=== PATIENT | female | born 1985 | race Caucasian/White ===

== ENCOUNTER 2017-06-08 20:05 | Emergency (ER) | payer BC ==
[2017-06-08 20:27] VITALS: BP 130/82
--- NOTE | 2017-06-08 21:06 | EDM.PDOC ---
ED HPI GENERAL MEDICAL PROBLEM - General Chief Complaint: Gastrointestinal Problem Stated Complaint: 5 WKS PG/VOMITING & DIARRHEA Time Seen by Provider: 06/08/17 21:06 Source of Information: Reports: Patient History Limitations: Reports: No Limitations - History of Present Illness INITIAL COMMENTS - FREE TEXT/NARRATIVE: 31-year-old female presents the ED with acute onset of nausea vomiting and diarrhea. Illness started suddenly at noon today. Vomited greater than 6 times bilious emesis without blood. She isloose large-volume stool losses 5. Again no blood noted. Of note patient is 5-1/2 weeks gestation by dates. She is 5 para 2. Is having a lot of abdominal cramping pain. Patient by history has chronic loose stools due to gluten and lactose intolerance. She follows a very strict diet it's unlikely that she's contracted foodborne illness. None of her children are ill at this time nor is her . Feels febrile and chilled. Denies any bleeding per vagina. Denies any increased urinary frequency or dysuria. Onset: Today Onset Date: 06/08/17 Onset Time: 12:00 Duration: Hour(s): Location: Reports: Abdomen (Intractable nausea vomiting and loose watery diarrhea.) Quality: Reports: Ache, Other (Generalized ache.) Severity: Moderate (Abdominal cramping pain) Improves with: Reports: None Worsens with: Reports: Other (Has kept down a Sprite so far this afternoon.) Context: Denies: Activity, Exercise, Lifting, Sick Contact, Trauma, Other Associated Symptoms: Reports: Fever/Chills, Loss of Appetite, Malaise, Nausea/ Vomiting, Shortness of Breath, Weakness (Intractable see history present illness ), Other (Mild dizziness lightheaded when she stands up.). 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 HEALTH RN: Reports: Other (see below) (None.) Abdominal Pain Score (Numeric/FACES): 10 - Related Data Allergies Allergy/AdvReac Type Severity Reaction Status Date / Time codeine Allergy Severe Swelling Verified 06/08/17 20:27 clindamycin Allergy Chest Pain Verified 06/08/17 20:27 latex Allergy Rash Verified 06/08/17 20:27 berries Allergy Severe Difficulty Uncoded 07/26/16 15:37 Swallowing Home Meds: Home Meds Ondansetron [Zofran ODT] 4 mg PO Q6H #5 tab.dis 06/08/17 [Rx] Past Medical History - Past Health History Medical/Surgical History: Denies Medical/Surgical History Other HEENT History: Dental problems Gastrointestinal History: Reports: Chronic Diarrhea (Stools almost are always on the loose side.) Other Gastrointestinal History: gluten intolerence , lactose intolerant. 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 Neurological History: Reports: Migraines Psychiatric History: Reports: Anxiety - Past Surgical History Female Surgical History: Reports: Section Neurological Surgical History: Reports: None Social & Family History - Tobacco Use Smoking Status *Q: Never Smoker Second Hand Smoke Exposure: No - Caffeine Use Caffeine Use: Reports: Coffee, Soda - Alcohol Use Days Per Week of Alcohol Use: 0 - Recreational Drug Use Recreational Drug Use: No Recreational Drug Type: Reports: Marijuana/Hashish Recreational Drug Use Frequency: Not Used In Over 6 Months - Living Situation & Occupation Living situation: Reports: Occupation: Employed ED ROS GENERAL - Review of Systems Review Of Systems: See Below Constitutional: Reports: Fever, Chills, Malaise, Weakness, Fatigue, Decreased Appetite HEENT: Reports: No Symptoms Respiratory: Reports: Shortness of Breath Cardiovascular: Reports: No Symptoms (Has been feeling a little more short of breath since she got .) Endocrine: Reports: Fatigue (Chronically) GI/Abdominal: Reports: Abdominal Pain (Gets a lot of abdominal cramping pain.), Diarrhea (Tends to have chronic loose stools or diarrhea. She is lactose and gluten), Nausea, Vomiting (See history of present illness) : Reports: Frequency. Denies: Dysuria Musculoskeletal: Reports: Muscle Pain Skin: Reports: No Symptoms (Generalized mild myalgia.) Neurological: Reports: Dizziness, Weakness Psychiatric: Reports: No Symptoms (With standing) Hematologic/Lymphatic: Reports: No Symptoms Immunologic: Reports: No Symptoms ED EXAM, GI/ABD - Physical Exam Exam: See Below Exam Limited By: No Limitations General Appearance: Alert, WD/WN, No Apparent Distress Eyes: Bilateral: Normal Appearance (No jaundice.) Ears: Normal TMs Throat/Mouth: Normal Lips, Normal Teeth, Normal Oropharynx, Other Head: Atraumatic (She does have mildly hypertrophic tonsils for her age but they 're not infected.), Normocephalic Neck: Normal Inspection, Supple, Non-Tender, Full Range of Motion. No: Lymphadenopathy (L), Lymphadenopathy (R) Respiratory/Chest: No Respiratory Distress, Lungs Clear, Normal Breath Sounds, Chest Non-Tender Cardiovascular: Normal Peripheral Pulses, Regular Rate, Rhythm, No Edema, No Murmur GI/Abdominal Exam: Normal Bowel Sounds, Soft, Non-Tender, No Organomegaly, No Abnormal Bruit, No Mass, Pelvis Stable Back Exam: Normal Inspection, Full Range of Motion. No: CVA Tenderness (L), CVA Tenderness (R) Extremities: Normal Inspection, Normal Range of Motion, Non-Tender, No Pedal Edema Neurological: Alert, Oriented, CN II-XII Intact, Normal Cognition, Normal Gait Psychiatric: Normal Affect, Normal Mood Skin Exam: Warm, Dry, Intact, Normal Color, No Rash Course - Vital Signs Last Recorded V/S: Last Vital Signs Temp 36.5 C 06/08/17 20:25 Pulse 84 06/08/17 20:25 Resp 16 06/08/17 20:25 BP 130/82 06/08/17 20:25 Pulse Ox 98 06/08/17 20:25 Orthostatic Blood Pressure [ 117/76 Standing] Orthostatic Blood Pressure [ 121/71 Sitting] Orthostatic Blood Pressure [ 114/75 Supine] - Orders/Labs/Meds Orders: Active Orders 24 hr Category Date Time Status Orthostatic Vital Signs [RC] ASDIRECTED Care 06/08/17 21:18 Active Labs: Laboratory Tests 06/08/17 06/08/17 06/08/17 Range/Units 21:05 21:05 21:09 WBC 9.02 (3.98-10.04) K/mm3 RBC 4.31 (3.98-5.22) M/mm3 Hgb 12.2 (11.2-15.7) gm/L Hct 35.9 (34.1-44.9) % MCV 83.3 (79.4-94.8) fl MCH 28.3 (25.6-32.2) pg MCHC 34.0 (32.2-35.5) g/dl RDW Std Deviation 40.7 (36.4-46.3) fL Plt Count 274 (182-369) K/mm3 MPV 9.9 (9.4-12.3) fl Neut % (Auto) 61.9 (34.0-71.1) % Lymph % (Auto) 25.7 (19.3-51.7) % [place] % (Auto) 10.8 (4.7-12.5) % Eos % (Auto) 1.2 (0.7-5.8) Baso % (Auto) 0.2 (0.1-1.2) % Neut # (Auto) 5.58 (1.56-6.13) K/mm3 Lymph # (Auto) 2.32 (1.18-3.74) K/mm3 [place] # (Auto) 0.97 H (0.24-0.36) K/mm3 Eos # (Auto) 0.11 (0.04-0.36) K/mm3 Baso # (Auto) 0.02 (0.01-0.08) K/mm3 Neutrophils % (Manual) 53 (40-60) % Band Neutrophils % 0 (0-10) % Lymphocytes % (Manual) 27 (20-40) % Atypical Lymphs % 0 % Monocytes % (Manual) 15 H (2-10) % Eosinophils % (Manual) 5 (0.7-5.8) % Basophils % (Manual) 0 L (0.1-1.2) Platelet Estimate Adequate Plt Morphology Comment Normal Poikilocytosis 3+ marked Sandhya Cells 2+ moderate Acanthocytes (Spur) 1+ slight RBC Morph Comment Not Reportable Sodium 140 (136-145) mEq/L Potassium 3.7 (3.5-5.1) mEq/L Chloride 107 (98-107) mEq/L Carbon Dioxide 23 (21-32) mEq/L Anion Gap 13.7 (5-15) BUN 6 L (7-18) mg/dL Creatinine 0.6 (0.55-1.02) mg/dL Est Cr Clr Drug Dosing 106.46 mL/min Estimated GFR (MDRD) > 60 (>60) mL/min BUN/Creatinine Ratio 10.0 L (14-18) Glucose 98 (74-106) mg/dL Calcium 8.7 (8.5-10.1) mg/dL Total Bilirubin 0.4 (0.2-1.0) mg/dL AST 20 (15-37) U/L ALT 26 (14-59) U/L Alkaline Phosphatase 74 (46-116) U/L Total Protein 7.0 (6.4-8.2) g/dl Albumin 4.0 (3.4-5.0) g/dl Globulin 3.0 gm/dL Albumin/Globulin Ratio 1.3 (1-2) HCG, Quant 4030.0 mIU/mL Urine Color Yellow (Yellow) Urine Appearance Clear (Clear) Urine pH 7.0 (5.0-8.0) Ur Specific [place] 1.015 (1.005-1.030) Urine Protein Negative (Negative) Urine Glucose (UA) Negative (Negative) Urine Ketones Negative (Negative) Urine Occult Blood Negative (Negative) Urine Nitrite Negative (Negative) Urine Bilirubin Negative (Negative) Urine Urobilinogen 0.2 (0.2-1.0) Ur Leukocyte Esterase Negative (Negative) Urine RBC Not seen (0-5) /hpf Urine WBC 0-5 (0-5) /hpf Ur Epithelial Cells 0-5 (0-5) /hpf Urine Bacteria Rare (FEW) /hpf Urine Mucus Not seen (FEW) /hpf Meds: Medications Discontinued Medications Generic Name Dose Route Start Last Admin Trade Name Freq PRN Reason Stop Dose Admin Dextrose/Sodium Chloride 1,000 mls @ 999 mls/hr 06/08/17 21:15 06/08/17 21:26 Dextrose 5%-Normal Saline IV 999 mls/hr ASDIRECTED MAXWELL Administration Ondansetron HCl 4 mg 06/08/17 21:15 06/08/17 21:27 Zofran IVPUSH 06/08/17 21:16 4 mg ONETIME ONE Administration - Radiology Interpretation Free Text/Narrative:: 31-year-old female who is about 5 and half weeks gestation presents to the ED with acute onset of nausea vomiting and loose watery diarrhea starting about the same time at noon today. She's vomited greater than 5 or 6 times of bilious material without blood. Stool similar large-volume loss without blood. Low- grade fever appreciated some chills. Clinically she has a viral gastroenteritis. Plan orthostatic BPs. IV D5 normal saline at open Zofran 4 mg IV. Routine labs to be collected and urinalysis. She prefers not to take any analgesics at this time due to . - Re-Assessments/Exams Free Text/Narrative Re-Assessment/Exam: 06/08/17 23:00 : Patient is feeling improved but is very tired. No further nausea vomiting or diarrhea since entering the department. I will discharge her with 5 tablets of Zofran 4 mg sublingually but she is rather reluctant to use them because of the . I will leave it up to her whether she feels prescription or not. Clear fluids advised tomorrow and she already follows a diet free of lactulose and gluten. Follow-up if needed. Departure - Departure Time of Disposition: 23:04 Disposition: Home, Self-Care 01 Condition: Fair Clinical Impression: Viral gastroenteritis - Discharge Information Prescriptions: Ondansetron [Zofran ODT] 4 mg PO Q6H #5 tab.dis Instructions: Viral Gastroenteritis, Adult, [id number] Referrals: Simone Fierro MD [Primary Care Provider] - Forms: ED Department Discharge Additional Instructions: Evaluation the emergency room tonight in regards to acute onset of nausea vomiting and diarrhea that started at noon hour today. Low-grade fever appreciated. Suspected acute viral gastroenteritis which is been quite prevalent in our community as of late. You are treated with a liter of D5 normal saline to maintain hydration and support . Received Zofran 4 mg intravenously to arrest vomiting. Lab work did not show anything significant. Urinalysis also proved to be negative for any infection. Suggest home to bed to sleep. Diarrhea may occur several more times over the next day or so. Suggest continuing lactose-free diet and no apple juice or grape juice. Clear fluids such as Gatorade or Powerade or excellent result pushing sources to maintain hydration and her safe in . Did write a prescription for Zofran 4 mg which may be taken under the tongue every 4-6 hours if needed for further relief of nausea or vomiting. Most of this stomach flu that's been going on is been lasting about 24 hours. Of course return to the ED if vomiting persists. - My Orders Last 24 Hours: My Active Orders 06/08/17 21:18 Orthostatic Vital Signs [RC] ASDIRECTED - Assessment/Plan Last 24 Hours: My Active Orders 06/08/17 21:18 Orthostatic Vital Signs [RC] ASDIRECTED
[2017-06-08] MEDS ORDERED: Ondansetron 4 MG/2 ML SDV IVPUSH ONE (21:15)
[2017-06-08] MEDS ORDERED: Dextrose 5%-0.9% NaCl 1,000 ML IV SCH (21:15)
== END 2017-06-08 23:16 | disposition home or self-care (01) ==
LOC: JD.ED 20:05
DX: O99.89 Other specified diseases and conditions complicating pregnancy, childbirth and the puerperium (principal); A08.4 Viral intestinal infection, unspecified; Z3A.01 Less than 8 weeks gestation of pregnancy; Z88.5 Allergy status to narcotic agent; Z88.1 Allergy status to other antibiotic agents; Z91.040 Latex allergy status; Z91.018 Allergy to other foods
CPT/HCPCS: 36415; 80053; 81001; 84702; 85025; 96361; 96374; 99284; J2405; J7042

== ENCOUNTER 2017-07-13 09:12 | Emergency (ER) | payer BC ==
[2017-07-13 09:26] VITALS: BP 113/68
--- NOTE | 2017-07-13 09:33 | EDM.PDOC ---
ED HPI GENERAL MEDICAL PROBLEM - General Chief Complaint: Gastrointestinal Problem Stated Complaint: RASH/VOMITING/DIARRHEA - 10 WKS PG Time Seen by Provider: 07/13/17 09:32 Source of Information: Reports: Patient History Limitations: Reports: No Limitations - History of Present Illness INITIAL COMMENTS - FREE TEXT/NARRATIVE: 31-year-old female presents to the ED with acute onset of nausea vomiting diarrhea overnight. Emesis has been bilious and about 5 times overnight. Since this clock this morning she's had 4 loose large-volume watery yellow stools with no blood. Associated diffuse abdominal cramping pain. Of note she estimates that she is 10 weeks gestation. LNMP was May 05 and planned . She is 6 para 3. No bleeding per vagina. Her first OB appointment is scheduled for next Sunday. No fever but she has a abnormal rash for the last 2 days on her abdomen and chest. Is mildly itchy. It has cleared with Benadryl taken orally last evening. Associated sore throat as well. No pain radiating up into her ears. No cough. Feels chilled but no defined fever Onset: Today, Sudden Duration: Hour(s): Location: Reports: Abdomen (associated sore throat.) Quality: Reports: Sharp, Stabbing (Intermittent abdominal cramping pain), Other Severity: Moderate Improves with: Reports: None Worsens with: Reports: None Context: Reports: Other (Spontaneous occurrence of illness.). Denies: Activity , Exercise, Lifting, Sick Contact, Trauma Associated Symptoms: Reports: Loss of Appetite, Malaise, Nausea/Vomiting, Rash ( Diarrhea), Other. 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: Reports: Other (see below) (Benadryl last evening.) Throat Pain Score (Numeric/FACES): 5 Abdominal Pain Score (Numeric/FACES): 6 - Related Data Allergies Allergy/AdvReac Type Severity Reaction Status Date / Time codeine Allergy Severe Swelling Verified 07/13/17 09:26 clindamycin Allergy Chest Pain Verified 07/13/17 09:26 latex Allergy Rash Verified 07/13/17 09:26 berries Allergy Severe Difficulty Uncoded 07/26/16 15:37 Swallowing Home Meds: Home Meds Dicyclomine [Bentyl] 20 mg PO Q6H PRN #5 tablet 07/13/17 [Rx] Ondansetron [Zofran] 4 mg BUCCAL Q6H PRN #5 tab 07/13/17 [Rx] Vit W-Ca,Fe,FA(<1 mg) [ Vitamins] 1 each PO DAILY 07/13/17 [ History] Past Medical History - Past Health History Medical/Surgical History: Denies Medical/Surgical History Other HEENT History: Dental problems Gastrointestinal History: Reports: Chronic Diarrhea Other Gastrointestinal History: gluten intolerence , lactose intolerant. 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 Neurological History: Reports: Migraines Psychiatric History: Reports: Anxiety - Past Surgical History Female Surgical History: Reports: Section Neurological Surgical History: Reports: None Social & Family History - Tobacco Use Smoking Status *Q: Never Smoker Second Hand Smoke Exposure: No - Caffeine Use Caffeine Use: Reports: Coffee, Soda - Alcohol Use Days Per Week of Alcohol Use: 0 - Recreational Drug Use Recreational Drug Use: No Recreational Drug Type: Reports: Marijuana/Hashish Recreational Drug Use Frequency: Not Used In Over 6 Months - Living Situation & Occupation Living situation: Reports: Occupation: Employed ED ROS GENERAL - Review of Systems Review Of Systems: See Below Constitutional: Reports: Chills, Malaise, Fatigue, Decreased Appetite, Other ( Has kept down only little bit of 7-Up this morning.). Denies: Weight Loss HEENT: Reports: Throat Pain Respiratory: Reports: No Symptoms Cardiovascular: Reports: No Symptoms Endocrine: Reports: Fatigue GI/Abdominal: Reports: Abdominal Pain, Diarrhea (Large-volume watery stool loss) , Nausea, Vomiting (Bilious emesis 5.). Denies: Hematemesis ( 4 since 6:00. Yellow in color without blood), Hematochezia : Reports: No Symptoms Musculoskeletal: Reports: No Symptoms Skin: Reports: Rash (Nonspecific rash which is slightly itchy and pretty well gone by the time I examined her. She taken Benadryl earlier) Neurological: Reports: No Symptoms ( was 12 hours.) Psychiatric: Reports: No Symptoms Hematologic/Lymphatic: Reports: No Symptoms Immunologic: Reports: No Symptoms ED EXAM, GI/ABD - Physical Exam Exam: See Below Exam Limited By: No Limitations General Appearance: Alert, WD/WN, No Apparent Distress, Anxious, Mild Distress ( Mildly anxious.) Eyes: Bilateral: Normal Appearance (No jaundice) Throat/Mouth: Normal Inspection, Normal Lips, Normal Teeth, Other Head: Atraumatic, Normocephalic (Implants of sore throat after vomiting) Neck: Normal Inspection, Supple, Non-Tender, Full Range of Motion. No: Lymphadenopathy (L), Lymphadenopathy (R) Respiratory/Chest: No Respiratory Distress, Lungs Clear, Normal Breath Sounds, No Accessory Muscle Use, Chest Non-Tender Cardiovascular: Normal Peripheral Pulses, Regular Rate, Rhythm, No Edema, No Gallop, No Murmur GI/Abdominal Exam: Soft, Non-Tender, No Organomegaly, No Abnormal Bruit, No Mass , Pelvis Stable, Abnormal Bowel Sounds (Very active bowel sounds in all 4 quadrants. Slightly distended and tympanitic to percussion. Gravid uterus is not palpable abdominally. Evidence of previous lower abdomen Pfannenstiel incision.) Back Exam: Normal Inspection, Full Range of Motion. No: CVA Tenderness (L), CVA Tenderness (R) Extremities: Normal Inspection, Normal Range of Motion, Non-Tender, No Pedal Edema Neurological: Alert, Oriented, CN II-XII Intact, Normal Cognition Psychiatric: Normal Affect, Anxious Skin Exam: Warm, Dry, Intact, Normal Color, Other (Nonspecific appearing rash on her abdominal wall which is pretty well gone.) Course - Vital Signs Last Recorded V/S: Last Vital Signs Temp 36.6 C 07/13/17 09:24 Pulse 85 07/13/17 09:24 Resp 16 07/13/17 09:24 BP 113/68 07/13/17 09:24 Pulse Ox 100 07/13/17 09:24 - Orders/Labs/Meds Labs: Laboratory Tests 07/13/17 07/13/17 Range/Units 09:45 09:45 WBC 10.72 H (3.98-10.04) K/mm3 RBC 4.36 (3.98-5.22) M/mm3 Hgb 12.4 (11.2-15.7) gm/L Hct 36.4 (34.1-44.9) % MCV 83.5 (79.4-94.8) fl MCH 28.4 (25.6-32.2) pg MCHC 34.1 (32.2-35.5) g/dl RDW Std Deviation 41.9 (36.4-46.3) fL Plt Count 271 (182-369) K/mm3 MPV 9.9 (9.4-12.3) fl Neutrophils % (Manual) 75 H (40-60) % Band Neutrophils % 1 (0-10) % Lymphocytes % (Manual) 19 L (20-40) % Atypical Lymphs % 0 % Monocytes % (Manual) 4 (2-10) % Eosinophils % (Manual) 1 (0.7-5.8) % Basophils % (Manual) 0 L (0.1-1.2) Platelet Estimate Adequate RBC Morph Comment Normal Sodium 136 (136-145) mEq/L Potassium 4.0 (3.5-5.1) mEq/L Chloride 103 (98-107) mEq/L Carbon Dioxide 22 (21-32) mEq/L Anion Gap 15.0 (5-15) BUN 8 (7-18) mg/dL Creatinine 0.5 L (0.55-1.02) mg/dL Est Cr Clr Drug Dosing 127.76 mL/min Estimated GFR (MDRD) > 60 (>60) mL/min BUN/Creatinine Ratio 16.0 (14-18) Glucose 83 (74-106) mg/dL Calcium 8.5 (8.5-10.1) mg/dL Total Bilirubin 0.5 (0.2-1.0) mg/dL AST 14 L (15-37) U/L ALT 17 (14-59) U/L Alkaline Phosphatase 53 (46-116) U/L C-Reactive Protein < 0.2 (<1.0) mg/dL Total Protein 6.9 (6.4-8.2) g/dl Albumin 3.6 (3.4-5.0) g/dl Globulin 3.3 gm/dL Albumin/Globulin Ratio 1.1 (1-2) Meds: Medications Discontinued Medications Generic Name Dose Route Start Last Admin Trade Name Freq PRN Reason Stop Dose Admin Dicyclomine HCl 20 mg 07/13/17 09:40 07/13/17 09:51 Bentyl PO 07/13/17 09:41 20 mg ONETIME ONE Administration Dextrose/Lactated Ringer's 1,000 mls @ 999 mls/hr 07/13/17 09:45 07/13/17 09: 52 Dextrose 5%-Lactated Ringers IV 999 mls/hr ASDIRECTED MAXWELL Administration Ondansetron HCl 4 mg 07/13/17 09:40 07/13/17 09:51 Zofran IVPUSH 07/13/17 09:41 4 mg ONETIME ONE Administration - Radiology Interpretation Free Text/Narrative:: 31-year-old female who is 10 weeks presents to the ED with acute onset of nausea vomiting and diarrhea. No one else at home is ill. She has 3 children at home. Started vomiting during the night and since 6 has had 4 loose large- volume watery stools. She is unable to keep anything down of significance. Clinically she does not appear to be severely volume depleted this time. Plan IV D5 Ringer's lactate at open. Zofran 4 mg IV Bentyl 20 mg per ora 15 minutes after the Zofran has been given IV. This is for relief of abdominal cramps. Clinically she has a viral gastroenteritis in . Routine labs will be collected - Re-Assessments/Exams Free Text/Narrative Re-Assessment/Exam: 07/13/17 11:05 White count is 10.72 with 75% neutrophils and 1% bands reported. Hemoglobin is 12.4 with hematocrit of 36.4. White count normal 271, 000. Mr. river is normal with a sodium of 136 and a potassium of 4.0. Bicarbonate is 22. Anion gap is 15.0. BUN is 8 with a creatinine of 0.5. No signs of significant volume depletion. Liver function is normal. C-reactive protein is less than 0.2. Patient is completed liter of IV fluids. She is feeling somewhat improved and is actually having a little bit of breakfast. Will be discharged home on Zofran 4 mg sublingual 1 every 6 hours as needed for nausea or vomiting. Bentyl 20 mg every 6 hours needed for relief of abdominal cramping pain. Advise clear fluid diet such as Gatorade or Powerade when hungry made try soda crackers and advance to toast later today. Also broth soup or turkey rice/ turkey noodle soup. Avoid all dairy products and no apple juice or grape juice until stools are formed back up. Departure - Departure Time of Disposition: 11:06 Disposition: Home, Self-Care 01 Condition: Fair Clinical Impression: Viral gastroenteritis - Discharge Information Prescriptions: Dicyclomine [Bentyl] 20 mg PO Q6H PRN #5 tablet PRN Reason: Abdominal cramps/diarrhea Ondansetron [Zofran] 4 mg BUCCAL Q6H PRN #5 tab PRN Reason: nausea or vomiting Instructions: Viral Gastroenteritis, Adult, [id number] Referrals: Simone Fierro MD [Primary Care Provider] - Forms: ED Department Discharge, ED Return to Work/School Form Additional Instructions: Evaluation the emergency room today in regards to acute onset of nausea vomiting and loose watery diarrhea stool. This complicates a 10 week . Lab work done today is all within normal limits showing no signs of bacterial infection and no significant changes in your blood electrolytes normal liver function and kidney function. You're treated with a liter of D5 Ringer's lactate to provide rehydration and make sure the fetus receives appropriate nutrition. He was treated with Zofran 4 mg IV to relieve nausea. Bentyl 20 mg by mouth to relieve abdominal cramping pain and ease up the diarrhea. Diagnosis is viral gastroenteritis which will run its course. The vomiting typically is been lasting 16-24 hours. The diarrhea is 2-3 days. Diet is to be clear fluids such as Gatorade or Powerade most of today. Ideally 5 ounces sipped per hour. When hungry try soda crackers and advance to toast. If this is tolerated may advance to soup broth then turkey rice slashed chicken noodle etc. soup. Suggest avoiding all dairy products and no apple or grape juice until stools are formed back up. Most of the juices or well tolerated. Off work of course today and tomorrow.
[2017-07-13] MEDS ORDERED: Ondansetron 4 MG/2 ML SDV IVPUSH ONE (09:40)
[2017-07-13] MEDS ORDERED: Dicyclomine 10 MG Cap PO ONE (09:40)
[2017-07-13] MEDS ORDERED: Dextrose 5%-Lactated Ringers 1,000 ML IV SCH (09:45)
== END 2017-07-13 11:17 | disposition home or self-care (01) ==
LOC: JD.ED 09:12
DX: O99.611 Diseases of the digestive system complicating pregnancy, first trimester (principal); Z3A.10 10 weeks gestation of pregnancy; A08.4 Viral intestinal infection, unspecified; Z88.5 Allergy status to narcotic agent; Z88.1 Allergy status to other antibiotic agents; Z91.040 Latex allergy status; Z91.018 Allergy to other foods
CPT/HCPCS: 36415; 80053; 85025; 86140; 96361; 96374; 99284; A9270; J2405; J7042

== ENCOUNTER 2017-08-10 17:05 | Emergency (ER) | payer BC ==
[2017-08-10 17:15] VITALS: BP 137/61
--- NOTE | 2017-08-10 19:18 | EDM.PDOC ---
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 She slipped and nearly fell. She grabbed on to the door and strained her abdominal muscles. She did not hit her abdomen but stretched them. She also scraped up her right knee. She did not hit her head or hurt her neck. She is 14 weeks . She has no bleeding or spotting. She is RH negative. Her OB nurse wanted her to come get checked out. Onset: Sudden Duration: Hour(s): Location: Reports: Abdomen Quality: Reports: Ache Severity: Moderate Improves with: Reports: Immobilization Worsens with: Reports: Movement Context: Reports: Activity (She was at work and she fell) Associated Symptoms: Reports: No Other Symptoms Abdomen Pain Score (Numeric/FACES): 7 - Related Data Allergies Allergy/AdvReac Type Severity Reaction Status Date / Time codeine Allergy Severe Swelling Verified 07/13/17 09:26 clindamycin Allergy Chest Pain Verified 07/13/17 09:26 latex Allergy Rash Verified 07/13/17 09:26 berries Allergy Severe Difficulty Uncoded 07/26/16 15:37 Swallowing Home Meds: Home Meds Vit W-Ca,Fe,FA(<1 mg) [ Vitamins] 1 each PO DAILY 07/13/17 [ History] Past Medical History - Past Health History Medical/Surgical History: Denies Medical/Surgical History Other HEENT History: Dental problems Gastrointestinal History: Reports: Chronic Diarrhea Other Gastrointestinal History: gluten intolerence Genitourinary History: Reports: UTI, 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 Neurological History: Reports: Migraines Psychiatric History: Reports: Anxiety - Past Surgical History Female Surgical History: Reports: Section Neurological Surgical History: Reports: None Social & Family History - Family History Family Medical History: Noncontributory - Tobacco Use Smoking Status *Q: Never Smoker Second Hand Smoke Exposure: No - Caffeine Use Caffeine Use: Reports: Soda - Alcohol Use Days Per Week of Alcohol Use: 0 - Recreational Drug Use Recreational Drug Use: No Recreational Drug Type: Reports: Marijuana/Hashish Recreational Drug Use Frequency: Not Used In Over 6 Months - Living Situation & Occupation Living situation: Reports: Occupation: Employed ED ROS GENERAL - Review of Systems Review Of Systems: See Below Constitutional: Reports: No Symptoms HEENT: Reports: No Symptoms Respiratory: Reports: No Symptoms Cardiovascular: Reports: No Symptoms Endocrine: Reports: No Symptoms GI/Abdominal: Reports: Abdominal Pain : Reports: No Symptoms Musculoskeletal: Reports: Other (Right knee pain) Skin: Reports: No Symptoms Neurological: Reports: No Symptoms ED EXAM, GI/ABD - Physical Exam Exam: See Below Exam Limited By: No Limitations General Appearance: Alert, No Apparent Distress Ears: Normal External Exam Nose: Normal Inspection Head: Atraumatic, Normocephalic Neck: Normal Inspection Respiratory/Chest: No Respiratory Distress, Lungs Clear, Normal Breath Sounds Cardiovascular: Regular Rate, Rhythm, No Edema, No Murmur GI/Abdominal Exam: Soft, Non-Tender, No Organomegaly, No Mass Back Exam: Normal Inspection Extremities: Other (Abrasion to the knee very mild pain upon palpation) Course - Vital Signs Last Recorded V/S: Last Vital Signs Temp 97.8 F 08/10/17 17:11 Pulse 86 08/10/17 17:11 Resp 18 08/10/17 17:11 BP 137/61 08/10/17 17:11 Pulse Ox 100 08/10/17 17:11 - Orders/Labs/Meds Orders: Active Orders 24 hr Category Date Time Status OB 1st Tri Sgl 1st Gest [US] Stat Exams 08/10/17 17:41 Taken - Re-Assessments/Exams Free Text/Narrative Re-Assessment/Exam: 08/10/17 19:19 I did an US and it shows single intrauterine gestation with an average estimated gestational age of 14 weeks 5 days. Placenta previa. Normal heart rate of 163 per minute. She has an abdominal stain. I will have her take tylenl and ice the area. Departure - Departure Time of Disposition: 19:25 Disposition: Home, Self-Care 01 Condition: Good Clinical Impression: Qualifiers: Weeks of gestation: 15 weeks Qualified Code(s): Z3A.15 - 15 weeks gestation of Placenta previa Qualifiers: Trimester: second trimester Qualified Code(s): O44.02 - Complete placenta previa NOS or without hemorrhage, second trimester Abdominal muscle strain Qualifiers: Encounter type: initial encounter Qualified Code(s): S39.011A - Strain of muscle, fascia and tendon of abdomen, initial encounter - Discharge Information Referrals: Simone Fierro MD [Primary Care Provider] - 1 Week Additional Instructions: Take tylenol for the pain. Ice the areas that hurt. Please return if you are worse. - My Orders Last 24 Hours: My Active Orders 08/10/17 17:41 OB 1st Tri Sgl 1st Gest [US] Stat - Assessment/Plan Last 24 Hours: My Active Orders 08/10/17 17:41 OB 1st Tri Sgl 1st Gest [US] Stat
--- NOTE | 2017-08-11 14:31 | US ---
Obstetrical ultrasound: Multiple real-time images were obtained. Comparison: No previous study for current . Dates: LMP: LMP given as 05/05/17, KEY[facility] 02/09/18, gestational age 13 weeks 6 days Current ultrasound: [facility] 02/03/18, gestational age 14 weeks 5 days Single intrauterine gestation is seen. Amniotic fluid volume is normal. Placenta is anterior and low-lying or possibly representing placenta previa. Maternal adnexa are within normal limits. Measurements: BPD: 2.76 cm - 15 weeks 0 days Head circumference: 10.17 cm - 14 weeks 6 days Abdominal circumference: 7.86 cm - 14 weeks 2 days Femur length: 1.41 cm - 14 weeks 2 days Estimated weight: 94 g (0 lbs. 3 oz.), estimated weight at the 13th percentile for age by current ultrasound Heart rate: 163 bpm Impression: 1. Single intrauterine gestation. Dates as noted above. 2. Anterior developing placenta which is low-lying or possibly representing placenta previa. This can be reevaluated at time of anatomic survey. 3. Normal heart activity. Diagnostic code #3 I agree with preliminary report issued by [facility] ([facility] report finalized on 08/10/17, 8:01 PM Central Time)
== END 2017-08-10 19:29 | disposition home or self-care (01) ==
LOC: JD.ED 17:05
DX: O9A.212 Injury, poisoning and certain other consequences of external causes complicating pregnancy, second trimester (principal); S39.011A Strain of muscle, fascia and tendon of abdomen, initial encounter; O44.02 Complete placenta previa NOS or without hemorrhage, second trimester; Z3A.15 15 weeks gestation of pregnancy; Z88.1 Allergy status to other antibiotic agents; Z88.5 Allergy status to narcotic agent; Z91.040 Latex allergy status; Z91.018 Allergy to other foods; W01.0XXA Fall on same level from slipping, tripping and stumbling without subsequent striking against object, initial encounter; Y92.89 Other specified places as the place of occurrence of the external cause; Y99.0 Civilian activity done for income or pay
CPT/HCPCS: 76801; 76801-26; 99283; 99284-25

== ENCOUNTER 2017-11-03 07:54 | Emergency (ER) | payer BC ==
[2017-11-03] MEDS ORDERED: Sodium Chloride 0.9% 1,000 ML IV STA (08:18)
[2017-11-03] MEDS ORDERED: Metoclopramide 10 MG/2 ML SDV IVPUSH ONE (08:18)
[2017-11-03] MEDS ORDERED: Sodium Chloride 0.9% 10 ML Syringe FLUSH PRN (08:18)
[2017-11-03 08:27] VITALS: BP 107/60
--- NOTE | 2017-11-03 08:44 | EDM.PDOC ---
ED HPI GENERAL MEDICAL PROBLEM - General Chief Complaint: Gastrointestinal Problem Stated Complaint: DIARRHEA/NAUSEA/ABDOMINAL PAIN Time Seen by Provider: 11/03/17 08:14 Source of Information: Reports: Patient History Limitations: Reports: No Limitations - History of Present Illness INITIAL COMMENTS - FREE TEXT/NARRATIVE: The patient presents with abdominal cramps, nausea and diarrhea. She said she ate late last night at a local restaurant last night. The food tasted fine. She woke up early this morning with an upset stomach. She thought it was just because she ate late but then she started having diarrhea. She is 26 weeks gestation. She has no fever, chills, cough, chest pain, shortness of breath, or dysuria. She is feeling the baby move. She has no vaginal bleeding, spotting, discharge or pelvic cramps. Onset: Gradual Duration: Hour(s): Location: Reports: Abdomen Quality: Reports: Other (Cramp) Severity: Mild Improves with: Reports: None Worsens with: Reports: None Associated Symptoms: Reports: Nausea/Vomiting. Denies: Chest Pain, Cough, Fever /Chills, Headaches, Shortness of Breath Abdomen Pain Score (Numeric/FACES): 6 - Related Data Allergies Allergy/AdvReac Type Severity Reaction Status Date / Time codeine Allergy Severe Swelling Verified 11/03/17 08:15 clindamycin Allergy Chest Pain Verified 11/03/17 08:15 latex Allergy Rash Verified 11/03/17 08:15 berries Allergy Severe Difficulty Uncoded 11/03/17 08:05 Swallowing Home Meds: Home Meds Vit W-Ca,Fe,FA(<1 mg) [ Vitamins] 1 each PO DAILY 07/13/17 [ History] Metoclopramide HCl [Reglan] 10 mg PO Q6HR PRN #20 tablet 11/03/17 [Rx] Past Medical History - Past Health History Medical/Surgical History: Denies Medical/Surgical History Other HEENT History: Dental problems Gastrointestinal History: Reports: Chronic Diarrhea Other Gastrointestinal History: gluten intolerence Genitourinary History: Reports: UTI, 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 Neurological History: Reports: Migraines Psychiatric History: Reports: Anxiety - Past Surgical History Female Surgical History: Reports: Section Neurological Surgical History: Reports: None Social & Family History - Family History Family Medical History: Noncontributory - Tobacco Use Smoking Status *Q: Never Smoker Second Hand Smoke Exposure: No - Caffeine Use Caffeine Use: Reports: Soda - Recreational Drug Use Recreational Drug Use: No - Living Situation & Occupation Living situation: Reports: Occupation: Employed ED ROS GENERAL - Review of Systems Review Of Systems: See Below Constitutional: Reports: No Symptoms HEENT: Reports: No Symptoms Respiratory: Reports: No Symptoms Cardiovascular: Reports: No Symptoms Endocrine: Reports: No Symptoms GI/Abdominal: Reports: Abdominal Pain, Diarrhea, Nausea. Denies: Vomiting : Reports: No Symptoms Musculoskeletal: Reports: No Symptoms ED EXAM, GI/ABD - Physical Exam Exam: See Below Exam Limited By: No Limitations General Appearance: Alert, No Apparent Distress Ears: Normal External Exam Nose: Normal Inspection Head: Atraumatic, Normocephalic Neck: Normal Inspection Respiratory/Chest: No Respiratory Distress, Lungs Clear, Normal Breath Sounds Cardiovascular: Regular Rate, Rhythm, No Edema, No Murmur GI/Abdominal Exam: Soft, Non-Tender, Other (Gravid uterus above the umbilicus) Back Exam: Normal Inspection Extremities: Normal Inspection Neurological: Alert, Oriented, No Motor/Sensory Deficits Course - Vital Signs Last Recorded V/S: Last Vital Signs Temp 97.4 F 11/03/17 08:16 Pulse 92 11/03/17 08:16 Resp 13 11/03/17 08:16 BP 107/60 11/03/17 08:16 Pulse Ox 99 11/03/17 08:16 - Orders/Labs/Meds Orders: Active Orders 24 hr Category Date Time Status Peripheral IV Care [RC] . DIRECTED Care 11/03/17 08:19 Active Abdomen Ltd [US] Stat Exams 11/03/17 10:31 Taken UA W/MICROSCOPIC [URIN] Stat Lab 11/03/17 08:30 Ordered Sodium Chloride 0.9% [Normal Saline] 1,000 ml Med 11/03/17 10:45 Active IV ASDIRECTED Sodium Chloride 0.9% [Saline Flush] Med 11/03/17 08:18 Active 10 ml FLUSH ASDIRECTED PRN ED Antiemetic Medication Reflex [OM.PC] Stat Oth 11/03/17 08:19 Ordered Peripheral IV Insertion Adult [OM.PC] Stat Oth 11/03/17 08:18 Ordered Medication Orders Sodium Chloride (Normal Saline) 1,000 mls @ 150 mls/hr IV ASDIRECTED [facility] Last Admin: 11/03/17 10:48 Dose: 150 mls/hr Sodium Chloride (Saline Flush) 10 ml FLUSH ASDIRECTED PRN PRN Reason: Keep Vein Open Last Admin: 11/03/17 08:27 Dose: 10 ml Labs: Laboratory Tests 11/03/17 11/03/17 11/03/17 Range/Units 08:15 08:15 08:30 WBC 13.20 H (3.98-10.04) K/mm3 RBC 3.74 L (3.98-5.22) M/mm3 Hgb 10.6 L (11.2-15.7) gm/L Hct 31.8 L (34.1-44.9) % MCV 85.0 (79.4-94.8) fl MCH 28.3 (25.6-32.2) pg MCHC 33.3 (32.2-35.5) g/dl RDW Std Deviation 39.1 (36.4-46.3) fL Plt Count 280 (182-369) K/mm3 MPV 9.7 (9.4-12.3) fl Neut % (Auto) 88.1 H (34.0-71.1) % Lymph % (Auto) 5.9 L (19.3-51.7) % [place] % (Auto) 4.8 (4.7-12.5) % Eos % (Auto) 0.7 (0.7-5.8) Baso % (Auto) 0.2 (0.1-1.2) % Neut # (Auto) 11.63 H (1.56-6.13) K/mm3 Lymph # (Auto) 0.78 L (1.18-3.74) K/mm3 [place] # (Auto) 0.64 H (0.24-0.36) K/mm3 Eos # (Auto) 0.09 (0.04-0.36) K/mm3 Baso # (Auto) 0.02 (0.01-0.08) K/mm3 Manual Slide Review Abnormal smear Sodium 136 (136-145) mEq/L Potassium 3.7 (3.5-5.1) mEq/L Chloride 104 (98-107) mEq/L Carbon Dioxide 20 L (21-32) mEq/L Anion Gap 15.7 H (5-15) BUN 12 (7-18) mg/dL Creatinine 0.5 L (0.55-1.02) mg/dL Est Cr Clr Drug Dosing 139.81 mL/min Estimated GFR (MDRD) > 60 (>60) mL/min BUN/Creatinine Ratio 24.0 H (14-18) Glucose 83 (74-106) mg/dL Calcium 7.8 L (8.5-10.1) mg/dL Total Bilirubin 0.4 (0.2-1.0) mg/dL AST 24 (15-37) U/L ALT 24 (14-59) U/L Alkaline Phosphatase 79 (46-116) U/L Total Protein 6.0 L (6.4-8.2) g/dl Albumin 2.5 L (3.4-5.0) g/dl Globulin 3.5 gm/dL Albumin/Globulin Ratio 0.7 L (1-2) Lipase 194 (73-393) U/L Urine Color Yellow (Yellow) Urine Appearance Clear (Clear) Urine pH 7.0 (5.0-8.0) Ur Specific [place] 1.025 (1.005-1.030) Urine Protein Trace H (Negative) Urine Glucose (UA) Negative (Negative) Urine Ketones 2+ H (Negative) Urine Occult Blood Negative (Negative) Urine Nitrite Negative (Negative) Urine Bilirubin Negative (Negative) Urine Urobilinogen 1.0 (0.2-1.0) Ur Leukocyte Esterase Negative (Negative) Urine RBC 0-5 (0-5) /hpf Urine WBC 0-5 (0-5) /hpf Ur Epithelial Cells 0-5 (0-5) /hpf Urine Bacteria Few (FEW) /hpf Urine Mucus Moderate H (FEW) /hpf Meds: Medications Generic Name Dose Route Start Last Admin Trade Name Freq PRN Reason Stop Dose Admin Sodium Chloride 1,000 mls @ 150 mls/hr 11/03/17 10:45 11/03/17 10:48 Normal Saline IV 150 mls/hr ASDIRECTED [facility] Administration Sodium Chloride 10 ml 11/03/17 08:18 11/03/17 08:27 Saline Flush FLUSH 10 ml ASDIRECTED PRN Administration Keep Vein Open Discontinued Medications Generic Name Dose Route Start Last Admin Trade Name Freq PRN Reason Stop Dose Admin Hydromorphone HCl 0.25 mg 11/03/17 10:31 11/03/17 10:43 Dilaudid IVPUSH 11/03/17 10:32 0.25 mg ONETIME ONE Administration Sodium Chloride 1,000 mls @ 1,000 mls/hr 11/03/17 08:18 11/03/17 08:26 Normal Saline IV 11/03/17 09:17 1,000 mls/hr .BOLUS STA Administration Metoclopramide HCl 10 mg 11/03/17 08:18 11/03/17 08:26 Reglan IVPUSH 11/03/17 08:19 10 mg ONETIME ONE Administration - Re-Assessments/Exams Free Text/Narrative Re-Assessment/Exam: 11/03/17 08:58 I ordered an IV NS 1L bolus, reglan 10mg IV, labs, and UA. 11/03/17 13:22 Her WBC was elevated at 13.2. Her Hgb was low at 10.6. Her anion gap is elevated at 15.7. Her lipase is normal. Her UA shows no UTI. She has worse pain in the right abdomen. I then ordered dilaudid 0.25mg IV. I also ordered an US of her appendix and abdomen. That was all negative. She feels better. I will discharge her home with some reglan. Departure - Departure Time of Disposition: 13:35 Disposition: Home, Self-Care 01 Condition: Good Clinical Impression: Nausea, Abdominal pain Diarrhea Qualifiers: Diarrhea type: unspecified type Qualified Code(s): R19.7 - Diarrhea, unspecified Qualifiers: Weeks of gestation: 15 weeks Qualified Code(s): Z3A.15 - 15 weeks gestation of - Discharge Information Prescriptions: Metoclopramide HCl [Reglan] 10 mg PO Q6HR PRN #20 tablet PRN Reason: Nausea/Vomiting Referrals: Simone Fierro MD [Primary Care Provider] - Forms: ED Department Discharge Additional Instructions: Drink plenty of fluids. Take the reglan for nausea and vomiting. Get some rest today. Please return if you have bloody diarrhea, more pain or if you cannot keep anything down. - My Orders Last 24 Hours: My Active Orders 11/03/17 08:18 Sodium Chloride 0.9% [Saline Flush] 10 ml FLUSH ASDIRECTED PRN Peripheral IV Insertion Adult [OM.PC] Stat 11/03/17 08:19 Peripheral IV Care [RC] . DIRECTED ED Antiemetic Medication Reflex [OM.PC] Stat 11/03/17 08:30 UA W/MICROSCOPIC [URIN] Stat 11/03/17 10:31 Abdomen Ltd [US] Stat 11/03/17 10:45 Sodium Chloride 0.9% [Normal Saline] 1,000 ml IV ASDIRECTED - Assessment/Plan Last 24 Hours: My Active Orders 11/03/17 08:18 Sodium Chloride 0.9% [Saline Flush] 10 ml FLUSH ASDIRECTED PRN Peripheral IV Insertion Adult [OM.PC] Stat 11/03/17 08:19 Peripheral IV Care [RC] . DIRECTED ED Antiemetic Medication Reflex [OM.PC] Stat 11/03/17 08:30 UA W/MICROSCOPIC [URIN] Stat 11/03/17 10:31 Abdomen Ltd [US] Stat 11/03/17 10:45 Sodium Chloride 0.9% [Normal Saline] 1,000 ml IV ASDIRECTED
[2017-11-03] MEDS ORDERED: HYDROmorphone 0.5 MG/0.5 ML SYRINGE IVPUSH ONE (10:31)
[2017-11-03] MEDS ORDERED: Sodium Chloride 0.9% 1,000 ML IV SCH (10:45)
--- NOTE | 2017-11-05 08:37 | US ---
Limited abdominal ultrasound: Multiple real-time images of the upper right abdomen were obtained. Comparison: Prior abdominal ultrasound exam of 11/04/15. Findings: Small umbilical hernia is identified. Liver shows no focal abnormality. Right kidney shows no hydronephrosis or mass and has a length of 11.2 cm. Gallbladder contains no gallstones. No gallbladder wall thickening or biliary duct dilatation is seen. Pancreas is incompletely visualized by bowel gas. Visualized portions of the pancreas are within normal limits. Images of the right lower quadrant show nonvisualized appendix. Inferior vena cava is patent. Portal vein shows normal hepatopedal flow. Impression: 1. Small umbilical hernia. 2. Other portions of the right upper quadrant abdominal ultrasound are within normal limits. Diagnostic code #3 Agree with preliminary report issued by [facility] (with additional finding of small umbilical hernia), ([facility] preliminary report dictated on 11/03/17, 1:38 PM Central Time)
== END 2017-11-03 14:14 | disposition home or self-care (01) ==
LOC: JD.ED 07:54
DX: O99.89 Other specified diseases and conditions complicating pregnancy, childbirth and the puerperium (principal); R19.7 Diarrhea, unspecified; R10.9 Unspecified abdominal pain; Z88.5 Allergy status to narcotic agent; Z88.1 Allergy status to other antibiotic agents; Z91.018 Allergy to other foods; Z91.040 Latex allergy status; Z3A.26 26 weeks gestation of pregnancy
CPT/HCPCS: 36415; 76705; 80053; 81001; 83690; 85025; 96361; 96374; 96375; 99284; J1170; J2765; J7040; J7050

== ENCOUNTER 2018-02-08 05:01 | Inpatient (IN) | payer BC, MEDICAID ==
[~2018-02-08 05:01] MED LIST: Citric Acid/Sodium Citrate Solution 30 ML Cup PO ONE; Metoclopramide 10 MG/2 ML SDV IVPUSH ONE; Nalbuphine 20 MG/ML 1 ML Syringe IVPUSH PRN; Oxytocin/Lactated Ringers 10 UNIT/1,000 ML BAG IV SCH; Sodium Chloride 0.9% 10 ML Syringe FLUSH PRN; ceFAZolin 2 GM in Premix Bag 1 BAG IV ONE
[2018-02-08] MEDS: Lactated Ringers 1,000 ML IV SCH ×2 (06:00→06:57)
[2018-02-08] MEDS ORDERED: Lactated Ringers 2,000 ML ONE (06:57)
[2018-02-08] MEDS ORDERED: ceFAZolin 1 GM Vial ONE (06:57)
[2018-02-08] MEDS ORDERED: Ketorolac 30 MG/ML SDV ONE (06:57)
[2018-02-08] MEDS ORDERED: Oxytocin 10 Units/1 ML SDV ONE (06:57)
[2018-02-08] MEDS ORDERED: Morphine PF 10 MG/10 ML SDV ONE (06:57)
[2018-02-08] MEDS ORDERED: Ondansetron 4 MG/2 ML SDV ONE (06:57)
[2018-02-08] MEDS ORDERED: Bupivacaine 0.5% 30 ML SDV ONE (07:01)
[2018-02-08] MEDS ORDERED: diphenhydrAMINE 50 MG/ML SDV IVPUSH PRN ×2 (07:22→10:17)
[2018-02-08] MEDS ORDERED: ePHEDrine 50 MG/ML SDV IVPUSH PRN ×2 (07:22→10:17)
[2018-02-08] MEDS ORDERED: Ondansetron 4 MG/2 ML SDV IVPUSH PRN (07:22)
[2018-02-08] MEDS ORDERED: HYDROmorphone 0.5 MG/0.5 ML Syringe IVPUSH PRN (07:22)
--- NOTE | 2018-02-08 07:28 | PCM.PREANE ---
Preanesthetic Assessment - Anesthesia/Transfusion/Family Hx Anesthesia History: Prior Anesthesia Without Reaction Family History of Anesthesia Reaction: No Transfusion History: No Prior Transfusion(s) - Review of Systems General: No Symptoms Pulmonary: No Symptoms Cardiovascular: Other Gastrointestinal: Diarrhea (Chronic. Gluten sensitivity.) Neurological: Headache (Migraines ) Other: Reports: Anxiety - Physical Assessment Pulse: 71 O2 Sat by Pulse Oximetry: 98 Respiratory Rate: 18 Blood Pressure: 111/55 Temperature: 37.0 C Height: 1.57 m Weight: 65.317 kg ASA Class: 2 Mental Status: Alert & Oriented x3 Airway Class: Mallampati = 1 Dentition: Reports: Normal Dentition (Loose wisdom tooth. Back left.) Thyro-Mental Finger Breadths: 3 Mouth Opening Finger Breadths: 3 ROM/Head Extension: Full Lungs: Clear to Auscultation, Normal Respiratory Effort Cardiovascular: Regular Rate, Regular Rhythm - Lab Values: Laboratory Last Values Blood Type O NEGATIVE 02/08/18 06:20 - Allergies Allergies/Adverse Reactions: Allergies Allergy/AdvReac Type Severity Reaction Status Date / Time codeine Allergy Severe Itching Verified 02/08/18 05:20 clindamycin Allergy Anaphylactic Verified 02/08/18 05:20 Shock latex Allergy Rash Verified 02/08/18 05:20 gluten AdvReac Stomach Verified 02/08/18 07:03 Upset berries Allergy Severe Anaphylactic Uncoded 02/08/18 05:20 Shock - Acknowledgements Anesthesia Type Planned: Spinal Pt an Appropriate Candidate for the Planned Anesthesia: Yes Alternatives and Risks of Anesthesia Discussed w Pt/Guardian: Yes Pt/Guardian Understands and Agrees with Anesthesia Plan: Yes PreAnesthesia Questionnaire - Past Health History Medical/Surgical History: Denies Medical/Surgical History Other HEENT History: Dental problems Gastrointestinal History: Reports: Chronic Diarrhea Other Gastrointestinal History: gluten intolerence 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 Neurological History: Reports: Migraines Psychiatric History: Reports: Anxiety - Past Surgical History Female Surgical History: Reports: Section Neurological Surgical History: Reports: None - SUBSTANCE USE Smoking Status *Q: Never Smoker Second Hand Smoke Exposure: No Recreational Drug Use History: No - HOME MEDS Home Medications: Home Meds Vit W-Ca,Fe,FA(<1 mg) [ Vitamins] 1 each PO DAILY 07/13/17 [ History] Ferrous Sulfate 325 mg PO DAILY 02/07/18 [History] - CURRENT (IN HOUSE) MEDS Current Meds: Current Medications Lactated Ringer's (Ringers, Lactated) 1,000 mls @ 125 mls/hr IV ASDIRECTED [facility] Last Admin: 02/08/18 06:57 Dose: 125 mls/hr Oxytocin/Lactated Ringer's (Pitocin In Lr 10 Units/1,000 Ml) 10 unit in 1,000 mls @ 100 mls/hr IV ASDIRECTED [facility] Nalbuphine HCl (Nubain) 10 mg IVPUSH Q2H PRN PRN Reason: pain Sodium Chloride (Saline Flush) 10 ml FLUSH ASDIRECTED PRN PRN Reason: Keep Vein Open Discontinued Medications Bupivacaine HCl (Marcaine 0.5%) Confirm Administered Dose 30 ml .ROUTE .STK-MED ONE Stop: 02/08/18 07:02 Cefazolin Sodium (Ancef) Confirm Administered Dose 2 gm .ROUTE .STK-MED ONE Stop: 02/08/18 06:58 Citric Acid/Sodium Citrate (Bicitra Solution) 30 ml PO ONETIME ONE Stop: 02/08/18 04:00 Last Admin: 02/08/18 06:57 Dose: 30 ml Cefazolin Sodium/Dextrose 2 gm (/ Premix) 50 mls @ 100 mls/hr IV ONETIME ONE Stop: 02/08/18 04:28 Lactated Ringer's (Ringers, Lactated) Confirm Administered Dose 2,000 mls @ as directed .ROUTE .STK-MED ONE Stop: 02/08/18 06:58 Ketorolac Tromethamine (Toradol) Confirm Administered Dose 30 mg .ROUTE .STK- MED ONE Stop: 02/08/18 06:58 Metoclopramide HCl (Reglan) 10 mg IVPUSH ONETIME ONE Stop: 02/08/18 04:00 Last Admin: 02/08/18 06:57 Dose: 10 mg Morphine Sulfate (Duramorph Pf) Confirm Administered Dose 10 mg .ROUTE .STK-MED ONE Stop: 02/08/18 06:58 Ondansetron HCl (Zofran) Confirm Administered Dose 4 mg .ROUTE .STK-MED ONE Stop: 02/08/18 06:58 Oxytocin (Pitocin) Confirm Administered Dose 20 unit .ROUTE .[place] ONE Stop: 02/08/18 06:58
[2018-02-08] MEDS ORDERED: Phenylephrine/Normal Saline 100 MCG/ML 10 ML Syringe ONE (08:20)
[2018-02-08] MEDS ORDERED: Bupivacaine 0.75%/D5W 2 ML Amp ONE (08:34)
--- NOTE | 2018-02-08 08:52 | PCM.OPNOTE ---
- General Post-Op/Procedure Note Date of Surgery/Procedure: 02/08/18 Operative Procedure(s): Repeat lower uterine segment transverse section through Pfannenstiel skin incision Findings: Uterus tubes and ovaries consistent with term . Baby in vertex presentation. Amniotic fluid clear. Moderate scarring in the anterior abdominal wall. Apgars were 8 and 9. Male born at 0807 hrs. 8 lbs. 5 oz. Pre Op Diagnosis: 39 week intrauterine , history of previous section x2 with desire for repeat section Post-Op Diagnosis: Same with delivery of viable, 8 lbs. 5 oz. male infant with Apgars of 8 and 9 at 0807 hrs. on 02/08/2018 Anesthesia Technique: Spinal Other Anesthesia Type: Marcaine 0.5%20 mL local Primary Surgeon: Simone Fierro Secondary Surgeon: Jose Beltran Anesthesia Provider: Deborah Galvin Supervisory Forester: Kelly Luna Reason Supervisory Forester Was Necessary: Retraction, assistance, patient safety, quality of care. Role of Supervisory Forester: Retraction, assistance Fluid Replacement, Intraop: 2,300 Output, Urine Amount: 200 Drain/Tube Comments:: Indwelling bladder catheter Complications: None Condition: Good Free Text/Narrative:: Surgery duration: 32 minutes Procedure: The patient is appropriately consented. Patient was transferred to the room and placed in a sitting position. Spinal anesthesia was administered. After confirmation of adequate anesthesia patient was placed in a supine position with a wedge under her right side to facilitate left lateral positioning. The patient was prepped and draped in usual fashion after Olvera catheter was already placed . The anesthetic was checked and found to be adequate. 20 mL of Marcaine 0.5% was injected locally in the Pfannenstiel incision site. The Pfannenstiel skin incision was then made and carried down through skin, subcutaneous and fascial layers. The fascia was then undermined superiorly and inferiorly to allow for adequate operating room. The recti muscles midline and preperitoneal fat was bluntly dissected. Peritoneal cavity was entered longitudinally. The vesicouterine peritoneum was then incised transversely and bladder flap was developed. Myometrium was incised transversely to the level of the amniotic sac. This incision was extended bilaterally in a blunt fashion. The amniotic sac was then ruptured resulting in clear amniotic fluid. A hand is placed in the low uterine segment and the baby's head was brought forth through the incision. The baby was completely delivered using fundal pressure in a routine fashion. The nose and mouth were bulb suctioned. Baby's cord was clamped x2 cut and baby was handed off to attending street light mechanic Dr ann. Placenta was expressed after cord blood was obtained. Uterus was then exteriorized to allow for easier closure. The cervix was assessed and found to be dilated adequately to allow egress of blood. The uterus was closed in 2 layers. The first layer a running locked suture of 0 Monocryl, the second layer a running locked vertical mattress suture of 0 Monocryl. Hemostasis confirmed at this time. Sponge instrument needle counts are correct. The uterus was returned to the abdominal cavity and lateral gutters were cleared of blood. Once again sponge needle counts are correct. The anterior abdominal wall was closed with a #1 PDS suture from angle to angle. The subcutaneous area was found to be free of any bleeders. interrupted sutures of 3-0 Monocryl were used to reapproximate the subcutaneous layer.Skin was closed with a running subcuticular stitch of 3-0 Monocryl in a vertical mattress suture fashion using a Bigg needle. Prineo mesh/glue was then applied to further approximate the incision. It should be noted that patient received 2 g of Ancef preoperatively for infection prophylaxis and had Pitocin infused after delivery of the placenta to facilitate uterine contraction. She also had sequential compression stockings in place for DVT prophylaxis. Patient was discharged from the operating room in satisfactory condition.
[2018-02-08] MEDS ORDERED: Dextrose 5%-Lactated Ringers 1,000 ML IV SCH (10:17)
[2018-02-08] MEDS ORDERED: Ondansetron 4 MG/2 ML SDV IV PRN (10:17)
[2018-02-08] MEDS ORDERED: Docusate Sodium 100 MG Cap PO PRN (10:17)
[2018-02-08] MEDS ORDERED: Naloxone 0.4 MG/ML SDV IVPUSH PRN (10:17)
[2018-02-08] MEDS ORDERED: Lanolin 100% Cream 7 GM Tube TOP PRN (10:17)
[2018-02-08] MEDS: Simethicone 80 MG Tab.Chew PO SCH ×4 (12:29→23:30)
[2018-02-08] MEDS: Acetaminophen/oxyCODONE 325-5 MG Tab PO PRN (19:13)
[2018-02-08] MEDS: Ibuprofen 800 MG Tab PO PRN (23:30)
[2018-02-09] MEDS: Acetaminophen/oxyCODONE 325-5 MG Tab PO PRN ×4 (06:02→21:02)
[2018-02-09] MEDS: Ibuprofen 800 MG Tab PO PRN ×2 (07:32→18:29)
--- NOTE | 2018-02-09 08:23 | PCM.SN ---
- Free Text/Narrative Note: Mari is a 32YO G5 now para 3023 who presented 02/08/2018 for a repeat section at 39 6/7 wks gestational age. Male born at 0807 hrs . 8 lbs. 5 oz. APGARs were 8 and 9. SUBJECTIVE Patient denies excessive vaginal discharge, fevers/chills, headaches, blurry vision, malaise, LE edema, excessive pain/bleeding/cramping, chest pain, cough, SOB, or dyspnea. Patient appears to be well-developed, well-nourished, no jaundice/pallor/edema and in good health, with no obvious concerns on exam. Abdominal exam revealed normally nolan uterus with fundus below level of umbilicus, no LE edema. No adventitious lung sounds on exam, no M/R/G were appreciated. Incision is healing well. OBJECTIVE VS 02/09/2018 are BP: 108/64 HR: 77 RR: 14 T: 37.1 O2: 98% on room air. ASSESSMENT 1. Repeat section at 39 6/7 wks gestational age 2. Plans to breastfeed PLAN 1. Plan to d/c home tomorrow 2. Support/encourage decision
[2018-02-09] MEDS: Simethicone 80 MG Tab.Chew PO SCH ×4 (10:31→21:03)
--- NOTE | 2018-02-10 06:28 | PCM.DCSUM1 ---
Discharge Summary - Hospital Course Free Text/Narrative:: Mari is a 32-year-old multigravida white female who underwent repeat section on 10/07/2017. Please see operative report for details. She delivered a viable 8 lbs. 5 oz. male with Apgars of 8 and 9 at 0807 hrs. on 02/08/2018. His were encountered. Baby is done well. Mom is bottlefeeding. Her follow-up labs have been within normal limits with hemoglobin 10.5 and platelets 206,000. Vital signs and stable. Patient is in doing well. Incision appears to be healing well and is dry. Normal lochia. She is desiring discharge home. Diagnosis: Stroke: No - Discharge Data Discharge Date: 02/10/18 Discharge Disposition: Home, Self-Care 01 Condition: Good - Patient Summary/Data Operative Procedure(s) Performed: Repeat lower uterine segment transverse section through Pfannenstiel skin incision - Patient Instructions Diet: Regular Diet as Tolerated Activity: As Tolerated (No intercourse or tampons until bleeding resolves. No lifting greater than 15 pounds or driving a car 1 week.) Driving: Do Not Drive Showering/Bathing: May Shower Wound/Incision Care: Keep Operative Site/Wound Site Clean and Dry Notify Provider of: Fever, Increased Pain, Swelling and Redness, Drainage, Nausea and/or Vomiting - Discharge Plan *PRESCRIPTION DRUG MONITORING PROGRAM REVIEWED*: No *COPY OF PRESCRIPTION DRUG MONITORING REPORT IN PATIENT MANJIT: No Home Medications: Home Meds Vit W-Ca,Fe,FA(<1 mg) [ Vitamins] 1 each PO DAILY 07/13/17 [ History] Ferrous Sulfate 325 mg PO DAILY 02/07/18 [History] Acetaminophen/oxyCODONE [Percocet 325-5 MG] 2 tab PO Q4H PRN #30 tablet [Rx] Ibuprofen [Motrin] 600 mg PO Q4H PRN #30 tablet 02/10/18 [Rx] Referrals: Simone Fierro MD [Primary Care Provider] - (return to clinic Dr. Tapia- 2 weeks.) - Discharge Summary/Plan Comment DC Time >30 min.: No Discharge Summary/Plan Comment: Discharge instructions: 1. Discharge home 2. Diet, activity and follow-up discussed with patient. Recommend nursing diet with increased calories and calcium. 3. Precautions given concern increased pain, bleeding, temperature, signs/ symptoms of DVT/PE. 4. Medications per home medication was printed, discussed with and given to the patient. 5. Return to clinic-Dr. Fierro-[facility] in 2 weeks. Diagnosis: Term -delivered Condition: Good - Patient Data Vitals - Most Recent: Last Vital Signs Temp 36.8 C 02/09/18 21:07 Pulse 70 02/09/18 21:07 Resp 16 02/09/18 21:07 BP 105/70 02/09/18 21:07 Pulse Ox 99 02/09/18 21:07 Weight - Most Recent: 65.317 kg I&O - Last 24 hours: Intake & Output 02/09/18 02/09/18 02/10/18 14:59 22:59 06:59 Intake Total 242 Output Total 900 Balance -658 Lab Results - Last 24 hrs: Laboratory Results - last 24 hr 02/09/18 02/09/18 Range/Units 06:10 06:10 WBC 10.30 H (3.98-10.04) K/mm3 RBC 3.94 L (3.98-5.22) M/mm3 Hgb 10.5 L (11.2-15.7) gm/L Hct 33.3 L (34.1-44.9) % MCV 84.5 (79.4-94.8) fl MCH 26.6 (25.6-32.2) pg MCHC 31.5 L (32.2-35.5) g/dl RDW Std Deviation 56.9 H (36.4-46.3) fL Plt Count 206 (182-369) K/mm3 MPV 10.1 (9.4-12.3) fl Neut % (Auto) 66.8 (34.0-71.1) % Lymph % (Auto) 18.4 L (19.3-51.7) % [place] % (Auto) 12.4 (4.7-12.5) % Eos % (Auto) 2.0 (0.7-5.8) Baso % (Auto) 0.2 (0.1-1.2) % Neut # (Auto) 6.87 H (1.56-6.13) K/mm3 Lymph # (Auto) 1.90 (1.18-3.74) K/mm3 [place] # (Auto) 1.28 H (0.24-0.36) K/mm3 Eos # (Auto) 0.21 (0.04-0.36) K/mm3 Baso # (Auto) 0.02 (0.01-0.08) K/mm3 Blood Type Cancelled Gel Antibody Screen Cancelled Screen 0 ros/5 flds - neg RhIG Candidate? Yes Rhogam Indicated Cancelled Med Orders - Current: Current Medications Diphenhydramine HCl (Benadryl) 25 mg IVPUSH Q6H PRN PRN Reason: Itching or Nausea Last Admin: 02/08/18 20:56 Dose: 25 mg Docusate Sodium (Colace) 100 mg PO Q12H PRN PRN Reason: Constipation Emollient Ointment (Lansinoh Hpa) 0 gm TOP ASDIRECTED PRN PRN Reason: Sore Nipples Ephedrine Sulfate (Ephedrine Sulfate) 5 mg IVPUSH SEECOMMENT PRN PRN Reason: Other Ibuprofen (Motrin) 800 mg PO Q8H PRN PRN Reason: mild pain or fever Last Admin: 02/09/18 18:29 Dose: 800 mg Naloxone HCl (Narcan) 0.1 mg IVPUSH SEECOMMENT PRN PRN Reason: Respiratory Depression Ondansetron HCl (Zofran) 4 mg IV Q4H PRN PRN Reason: Nausea/Vomiting Oxycodone/Acetaminophen (Percocet 325-5 Mg) 2 tab PO Q4H PRN PRN Reason: Pain (moderate 4-6) Last Admin: 02/09/18 21:02 Dose: 2 tab Simethicone (Simethicone) 80 mg PO PCBED [facility] Last Admin: 02/09/18 21:03 Dose: 80 mg Discontinued Medications Bupivacaine HCl (Marcaine 0.5%) Confirm Administered Dose 30 ml .ROUTE .STK-MED ONE Stop: 02/08/18 07:02 Last Admin: 02/08/18 08:04 Dose: 20 ml Bupivacaine HCl/Dextrose (Marcaine 0.75% Spinal) Confirm Administered Dose 2 ml .ROUTE .STK-MED ONE Stop: 02/08/18 08:35 Cefazolin Sodium (Ancef) Confirm Administered Dose 2 gm .ROUTE .STK-MED ONE Stop: 02/08/18 06:58 Citric Acid/Sodium Citrate (Bicitra Solution) 30 ml PO ONETIME ONE Stop: 02/08/18 04:00 Last Admin: 02/08/18 06:57 Dose: 30 ml Diphenhydramine HCl (Benadryl) 25 mg IVPUSH Q6H PRN PRN Reason: Pruritis Stop: 02/08/18 10:00 Ephedrine Sulfate (Ephedrine Sulfate) 5 mg IVPUSH ASDIRECTED PRN PRN Reason: Hypotension Stop: 02/08/18 10:00 Hydromorphone HCl (Dilaudid) 0.5 mg IVPUSH ASDIRECTED PRN PRN Reason: Severe Pain Stop: 02/08/18 10:00 Cefazolin Sodium/Dextrose 2 gm (/ Premix) 50 mls @ 100 mls/hr IV ONETIME ONE Stop: 02/08/18 04:28 Last Admin: 02/08/18 23:14 Dose: Not Given Lactated Ringer's (Ringers, Lactated) 1,000 mls @ 125 mls/hr IV ASDIRECTED [facility] Last Admin: 02/08/18 06:57 Dose: 125 mls/hr Oxytocin/Lactated Ringer's (Pitocin In Lr 10 Units/1,000 Ml) 10 unit in 1,000 mls @ 100 mls/hr IV ASDIRECTED [facility] Lactated Ringer's (Ringers, Lactated) Confirm Administered Dose 2,000 mls @ as directed .ROUTE .[facility]-MED ONE Stop: 02/08/18 06:58 Lidocaine HCl (Xylocaine-Mpf 1%) Confirm Administered Dose 5 mls @ as directed .ROUTE .[facility]-MED ONE Stop: 02/08/18 08:35 Dextrose/Lactated Ringer's (Dextrose 5%-Lactated Ringers) 1,000 mls @ 125 mls/ hr IV ASDIRECTED [facility] Stop: 02/08/18 18:16 Ketorolac Tromethamine (Toradol) Confirm Administered Dose 30 mg .ROUTE .STK- MED ONE Stop: 02/08/18 06:58 Metoclopramide HCl (Reglan) 10 mg IVPUSH ONETIME ONE Stop: 02/08/18 04:00 Last Admin: 02/08/18 06:57 Dose: 10 mg Morphine Sulfate (Duramorph Pf) Confirm Administered Dose 10 mg .ROUTE .STK-MED ONE Stop: 02/08/18 06:58 Nalbuphine HCl (Nubain) 10 mg IVPUSH Q2H PRN PRN Reason: pain Ondansetron HCl (Zofran) Confirm Administered Dose 4 mg .ROUTE .STK-MED ONE Stop: 02/08/18 06:58 Ondansetron HCl (Zofran) 4 mg IVPUSH ONETIME PRN PRN Reason: Nausea/Vomiting Stop: 02/08/18 10:00 Oxytocin (Pitocin) Confirm Administered Dose 20 unit .ROUTE .STK-MED ONE Stop: 02/08/18 06:58 Phenylephrine HCl (Phenylephrine In Ns 100 Mcg/Ml) Confirm Administered Dose 1 mg .ROUTE .STK-MED ONE Stop: 02/08/18 08:21 Sodium Chloride (Saline Flush) 10 ml FLUSH ASDIRECTED PRN PRN Reason: Keep Vein Open
[2018-02-10] MEDS: Ibuprofen 800 MG Tab PO PRN (06:34)
[2018-02-10] MEDS: Simethicone 80 MG Tab.Chew PO SCH ×2 (08:08→12:26)
[2018-02-10] MEDS: Acetaminophen/oxyCODONE 325-5 MG Tab PO PRN ×2 (08:09→12:25)
[2018-02-10 08:58] VITALS: BP 111/69
--- NOTE | 2018-02-10 22:24 | PCM48HPAN ---
Post Anesthesia Note - EVALUATION WITHIN 48HRS OF ANESTHETIC Vital Signs in Normal Range: Yes Patient Participated in Evaluation: Yes Respiratory Function Stable: Yes Airway Patent: Yes Cardiovascular Function Stable: Yes Hydration Status Stable: Yes Pain Control Satisfactory: Yes Nausea and Vomiting Control Satisfactory: Yes Mental Status Recovered: Yes - COMMENTS/OBSERVATIONS Free Text/Narrative:: Patient denied any anesthesia complications
== END 2018-02-10 12:55 | disposition home or self-care (01) | DRG 540 ==
LOC: JD.OB 05:01 → UNDODISIN 02-10 11:55
PROVIDERS: ADMIT Obstetrics & Gynecology; ATTEND Obstetrics & Gynecology
PROC: 10D00Z1 Extraction of Products of Conception, Low, Open Approach (ICD-10-PCS; principal; 2018-02-08)
PROC: 6A550ZT Pheresis of Cord Blood Stem Cells, Single (ICD-10-PCS; principal; 2018-02-08)
DX: O34.211 Maternal care for low transverse scar from previous cesarean delivery (principal); N85.8 Other specified noninflammatory disorders of uterus; Z3A.39 39 weeks gestation of pregnancy; Z37.0 Single live birth; Z88.6 Allergy status to analgesic agent; Z88.1 Allergy status to other antibiotic agents; Z91.040 Latex allergy status; Z91.018 Allergy to other foods; Z87.440 Personal history of urinary (tract) infections; O99.344 Other mental disorders complicating childbirth; F41.9 Anxiety disorder, unspecified; K90.41 Non-celiac gluten sensitivity; O99.62 Diseases of the digestive system complicating childbirth
CPT/HCPCS: 36415; 85025; 85461; 86850; 86900; 86901; A9270-GY; J0690; J1200; J1885; J2270; J2370; J2405; J2590; J2765; J2790; J3490; J7120

== ENCOUNTER 2018-09-22 15:15 | Emergency (ER) | payer MEDICAID ==
[2018-09-22 15:25] VITALS: BP 122/72
--- NOTE | 2018-09-22 16:46 | EDM.PDOC ---
ED HPI GENERAL MEDICAL PROBLEM - General Chief Complaint: Gastrointestinal Problem Stated Complaint: RECTUM BLEEDING Time Seen by Provider: 09/22/18 15:23 Source of Information: Reports: Patient History Limitations: Reports: No Limitations - History of Present Illness INITIAL COMMENTS - FREE TEXT/NARRATIVE: 32-year-old female presents to ER with chief complaints of rectal bleeding. Patient reports last night after having a bowel movement s she denies any pain with her bowel movements. he noticed moderate amount of bright red blood in the toilet. She reports that later today after having a bowel movement she noticed in the toilet again. She does have a history of constipation. She denies any pain with bowel movements. She denies any anal sex. She reports that she has been overall healthy although she does have a new allergen to gluten. She denies any fever chills abdominal pain nausea or vomiting Onset Date: 09/21/18 Onset Time: 21:00 Location: Reports: Other (rectum) Severity: Mild Improves with: Reports: None Worsens with: Reports: Other (Bowel movement) Associated Symptoms: Denies: Fever/Chills, Nausea/Vomiting Left Lower Abdominal Pain Score (Numeric/FACES): 3 - Related Data Allergies Allergy/AdvReac Type Severity Reaction Status Date / Time codeine Allergy Mild Itching Verified 09/22/18 15:25 clindamycin Allergy Anaphylactic Verified 09/22/18 15:25 Shock latex Allergy Rash Verified 09/22/18 15:25 gluten AdvReac Stomach Verified 09/22/18 15:25 Upset berries Allergy Severe Anaphylactic Uncoded 09/22/18 15:25 Shock Home Meds: Home Meds . [No Known Home Meds] 09/22/18 [History] Past Medical History - Past Health History Medical/Surgical History: Denies Medical/Surgical History Other HEENT History: Dental problems Gastrointestinal History: Reports: Chronic Diarrhea Other Gastrointestinal History: gluten intolerence Genitourinary History: Reports: UTI, Recurrent ROLL EXAMINER History: Reports: Other ROLL EXAMINER History: Has had 2 therapeutic abortions. Neurological History: Reports: Migraines Psychiatric History: Reports: Anxiety - Past Surgical History Female Surgical History: Reports: Section Neurological Surgical History: Reports: None Social & Family History - Family History Family Medical History: Noncontributory - Tobacco Use Smoking Status *Q: Never Smoker Second Hand Smoke Exposure: No - Caffeine Use Caffeine Use: Reports: Coffee - Recreational Drug Use Recreational Drug Use: No - Living Situation & Occupation Living situation: Reports: Occupation: Employed ED ROS GENERAL - Review of Systems Review Of Systems: See Below Constitutional: Denies: Fever, Chills HEENT: Reports: No Symptoms Respiratory: Reports: No Symptoms Cardiovascular: Reports: No Symptoms Endocrine: Reports: No Symptoms GI/Abdominal: Reports: Constipation, Other (Blood in toilet with bowel movements ). Denies: Abdominal Pain : Reports: No Symptoms Musculoskeletal: Reports: No Symptoms Skin: Reports: No Symptoms Neurological: Reports: No Symptoms Psychiatric: Reports: No Symptoms, Other Hematologic/Lymphatic: Reports: No Symptoms Immunologic: Reports: No Symptoms ED EXAM, GI/ABD - Physical Exam Exam: See Below Exam Limited By: No Limitations General Appearance: Alert, WD/WN, No Apparent Distress Respiratory/Chest: No Respiratory Distress, Lungs Clear, Normal Breath Sounds, No Accessory Muscle Use, Chest Non-Tender Cardiovascular: Normal Peripheral Pulses, Regular Rate, Rhythm, No Edema, No Gallop, No JVD, No Murmur, No Rub GI/Abdominal Exam: Normal Bowel Sounds, Soft, Non-Tender, No Organomegaly, No Distention, No Abnormal Bruit, No Mass, Pelvis Stable Rectal (Female) Exam: Normal Rectal Tone, Heme + Stool, Hemorrhoids (Internal hemorrhoid), Tenderness Neurological: Alert, Oriented, CN II-XII Intact, Normal Cognition, Normal Gait, Normal Reflexes, No Motor/Sensory Deficits Psychiatric: Anxious Skin Exam: Warm, Dry, Intact, Normal Color, No Rash Lymphatic: No Adenopathy Course - Vital Signs Last Recorded V/S: Last Vital Signs Temp 97.3 F 09/22/18 15:22 Pulse 83 09/22/18 15:22 Resp 16 09/22/18 15:22 BP 122/72 09/22/18 15:22 Pulse Ox 100 09/22/18 15:22 Orthostatic Blood Pressure [ 109/64 Standing] Orthostatic Blood Pressure [ 103/58 Sitting] Orthostatic Blood Pressure [ 118/63 Supine] - Orders/Labs/Meds Labs: Laboratory Tests 09/22/18 Range/Units 16:18 Hgb 10.8 L (11.2-15.7) gm/L Hct 33.5 L (34.1-44.9) % - Re-Assessments/Exams Free Text/Narrative Re-Assessment/Exam: 09/22/18 16:44 Rectal exam performed moderate amount of blood noted, primary nurse at bedside. Patient is tearful and crying concerned that she has some form of cancer. I discussed with the patient this is a small probability. I did reassure the patient that it is very uncommon for a young individuals to have colorectal cancer at her age, and since she does not have a family history. H&H is pending. 09/22/18 16:58 H & H is 10.8 & 33.5 patient does have history of anemia. I will discharge home instructions to follow with Dr. Delano Ku for outpatient colonoscopy and further evaluation. Instructed to return to the emergency room for any new or Worsening symptoms. Instructed patient to increase her fiber and fluid intake to prevent constipation. Patient verbalized understanding and is comfortable plan for discharge. Patient is stable at time of discharge. Departure - Departure Time of Disposition: 16:59 Disposition: Home, Self-Care 01 Condition: Good Clinical Impression: Rectal bleed - Discharge Information Instructions: Rectal Bleeding Referrals: PCP,None [Primary Care Provider] - Delano Ku MD [Physician] - Forms: ED Department Discharge Additional Instructions: He had been diagnosed with rectal bleeding which is probably due to an internal hemorrhoid. You should follow-up with Dr. Delano Ku an outpatient basis for further testing. He should increase her fiber intake and fluid intake to prevent constipation. You may also consider taking Colace to prevent used also getting hard. Return to the emergency room for any new or acutely worsening symptoms.
== END 2018-09-22 17:14 | disposition home or self-care (01) ==
LOC: JD.ED 15:15
DX: K62.5 Hemorrhage of anus and rectum (principal); Z88.5 Allergy status to narcotic agent; Z88.1 Allergy status to other antibiotic agents; Z91.040 Latex allergy status
CPT/HCPCS: 36415; 85014; 85018; 99282; 99283

== ENCOUNTER 2019-04-09 17:48 | Emergency (ER) | payer BC, MEDICAID ==
[2019-04-09 18:02] VITALS: BP 103/71; PULSE 72
--- NOTE | 2019-04-09 18:29 | EDM.PDOC ---
ED HPI GENERAL MEDICAL PROBLEM - General Chief Complaint: Abdominal Pain Stated Complaint: L SIDE ABDOMINAL PAIN Time Seen by Provider: 04/09/19 18:11 Source of Information: Reports: Patient, RN Notes Reviewed History Limitations: Reports: No Limitations - History of Present Illness INITIAL COMMENTS - FREE TEXT/NARRATIVE: Patient is a 33-year-old female who presents to the ED for evaluation of bilateral lower abdominal pain. She states that the pain is worse on the left, than it is on the right, but she does have pain on both sides. She notes this is somewhat of a chronic issue for her, but she does get flares of this that come and go. She states that the pain is an 8 out of 10 minutes is worse, and then a 5 out of 10 when it's not as bad. She notes that the pain does radiate around to her left back. She states that around 1 year ago, and January she had a , and she was told by Dr. Fierro, that they had to entice the tendons in her abdomen, and that this is what probably causing her pain. Otherwise she states that he does not seem to be very concerned about her pain. She has not followed up with any sort a GI doctor. She does not relate that this pain comes and goes with her menses, she states there is no specific pattern. She states that urinating, and defecating both aggravate the pain. She denies any vaginal symptoms such as bleeding, dysuria, urinary urgency or frequency, or vaginal discharge. Last menstrual period around 2 weeks ago. She does not think she be . She did have a colonoscopy, and this was also normal. She notes a mild amount of nausea with this as well. She states that the only thing that really makes the pain better, is if she just sits still. She did not take any sort ibuprofen or Tylenol at home. She further notes some chronic abdominal pain issues such as gluten intolerancy. She states that if she stays away from gluten, this does seem to make the abdominal issues better. She also notes she has a history of ovarian cysts, and she is unsure if the pain is due to these or not. Left Lower Abdomen Pain Score (Numeric/FACES): 8 - Related Data Allergies Allergy/AdvReac Type Severity Reaction Status Date / Time codeine Allergy Mild Itching Verified 09/22/18 15:25 clindamycin Allergy Anaphylactic Verified 09/22/18 15:25 Shock latex Allergy Rash Verified 09/22/18 15:25 gluten AdvReac Stomach Verified 09/22/18 15:25 Upset berries Allergy Severe Anaphylactic Uncoded 09/22/18 15:25 Shock Home Meds: Home Meds . 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 Neurological History: Reports: Migraines Psychiatric History: Reports: Anxiety - Past Surgical History Female Surgical History: Reports: Section Neurological Surgical History: Reports: None Social & Family History - Family History Family Medical History: Noncontributory - Tobacco Use Smoking Status *Q: Never Smoker - Caffeine Use Caffeine Use: Reports: Soda - Recreational Drug Use Recreational Drug Use: No - Living Situation & Occupation Living situation: Reports: Occupation: Employed ED ROS GENERAL - Review of Systems Review Of Systems: See Below Constitutional: Reports: Other (hot/cold flashes). Denies: Decreased Appetite HEENT: Reports: No Symptoms Respiratory: Reports: No Symptoms Cardiovascular: Reports: No Symptoms Endocrine: Reports: No Symptoms GI/Abdominal: Reports: Abdominal Pain (bilateral lower abdominal pain), Nausea. Denies: Constipation, Diarrhea, Vomiting : Reports: Pain (pelvic/suprapubic pain). Denies: Dysuria, Flank Pain, Frequency, Irregular Menses, Urgency Musculoskeletal: Reports: No Symptoms Skin: Reports: No Symptoms Neurological: Reports: No Symptoms Psychiatric: Reports: No Symptoms Hematologic/Lymphatic: Reports: No Symptoms ED EXAM, GI/ABD - Physical Exam Exam: See Below Exam Limited By: No Limitations General Appearance: Alert, WD/WN, No Apparent Distress Eyes: Bilateral: Normal Appearance Nose: Normal Inspection Throat/Mouth: Normal Inspection, Normal Lips, Normal Teeth, Normal Gums, Normal Oropharynx, Normal Voice, No Airway Compromise Respiratory/Chest: No Respiratory Distress, Lungs Clear, Normal Breath Sounds, No Accessory Muscle Use, Chest Non-Tender Cardiovascular: Normal Peripheral Pulses, Regular Rate, Rhythm, No Murmur GI/Abdominal Exam: Normal Bowel Sounds, Soft, No Distention, No Mass, Tender ( bilateral lower quadrants, worse on the left, with radiation to low back) Extremities: Normal Inspection, Normal Capillary Refill Neurological: Alert, Oriented, Normal Cognition, No Motor/Sensory Deficits Psychiatric: Normal Affect, Normal Mood Skin Exam: Warm, Dry, Intact, Normal Color, No Rash Course - Vital Signs Last Recorded V/S: Last Vital Signs Temp 98.7 F 04/09/19 18:01 Pulse 72 04/09/19 18:01 Resp 20 04/09/19 18:01 BP 103/71 04/09/19 18:01 Pulse Ox 100 04/09/19 18:01 - Orders/Labs/Meds Orders: Active Orders 24 hr Category Date Time Status Orthostatic Vital Signs [RC] ASDIRECTED Care 04/09/19 21:16 Active Labs: Laboratory Tests 04/09/19 04/09/19 Range/Units 19:40 19:40 WBC 7.00 (3.98-10.04) K/mm3 RBC 4.70 (3.98-5.22) M/mm3 Hgb 10.2 L (11.2-15.7) gm/dl Hct 33.4 L (34.1-44.9) % MCV 71.1 L D (79.4-94.8) fl MCH 21.7 L (25.6-32.2) pg MCHC 30.5 L (32.2-35.5) g/dl RDW Std Deviation 44.6 (36.4-46.3) fL Plt Count 329 D (182-369) K/mm3 MPV 10.1 (9.4-12.3) fl Neut % (Auto) 53.7 (34.0-71.1) % Lymph % (Auto) 31.3 (19.3-51.7) % [place] % (Auto) 12.9 H (4.7-12.5) % Eos % (Auto) 1.6 (0.7-5.8) Baso % (Auto) 0.4 (0.1-1.2) % Neut # (Auto) 3.76 (1.56-6.13) K/mm3 Lymph # (Auto) 2.19 (1.18-3.74) K/mm3 [place] # (Auto) 0.90 H (0.24-0.36) K/mm3 Eos # (Auto) 0.11 (0.04-0.36) K/mm3 Baso # (Auto) 0.03 (0.01-0.08) K/mm3 Manual Slide Review Abnormal smear Sodium 141 (136-145) mEq/L Potassium 3.8 (3.5-5.1) mEq/L Chloride 105 (98-107) mEq/L Carbon Dioxide 26 (21-32) mEq/L Anion Gap 13.8 (5-15) BUN 3 L (7-18) mg/dL Creatinine 0.5 L (0.55-1.02) mg/dL Est Cr Clr Drug Dosing 125.39 mL/min Estimated GFR (MDRD) > 60 (>60) mL/min BUN/Creatinine Ratio 6.0 L (14-18) Glucose 96 (74-106) mg/dL Calcium 8.7 (8.5-10.1) mg/dL Total Bilirubin 0.3 (0.2-1.0) mg/dL AST 20 (15-37) U/L ALT 25 (14-59) U/L Alkaline Phosphatase 111 (46-116) U/L C-Reactive Protein < 0.2 (<1.0) mg/dL Total Protein 7.4 (6.4-8.2) g/dl Albumin 4.0 (3.4-5.0) g/dl Globulin 3.4 gm/dL Albumin/Globulin Ratio 1.2 (1-2) - Re-Assessments/Exams Free Text/Narrative Re-Assessment/Exam: 04/09/19 19:46 Patient presents to the ED for evaluation of bilateral lower quadrant pain. Quite unsure as to the etiology of her pain. I did order a transvaginal ultrasound to evaluate for ovarian cysts, and a CBC, CMP, CRP for initial lab evaluation. Patient does relate a history of anxiety, but she does not take any medications for this. She noted that some of the pains coincide when she feels anxious. 04/09/19 21:00 Patient's laboratory evaluations done, and impressive only for a mild anemia, but appears to be microcytic, she should probably have this worked up by her primary care provider, but if this persists. US is still pending. 04/09/19 21:22 Ultrasound demonstrates 1. Slightly prominent free fluid within the pelvis. Most likely represents an nonvisualized cyst rupture. 2. Small nabothian cyst. 3. Small amount of fluid within the endocervical an endometrial cavity within the lower uterine segment. 4. No additional abnormality seen. This could be the etiology of her pain at this time. I did talk the results over with Dr. Simons, and he suggests doing orthostatic vital signs, to ensure hemodynamic stability. Patient's vitals are normal, she is afebrile, and was not having any sort of dizziness or lightheadedness complaints prior to this. Nevertheless up-to-date recommends insuring hemodynamic stability, and having blood levels checked to make sure that there is no increased bleeding. As stated above the patient does have a slightly lower hemoglobin and hematocrit, but it also appears that she has an anemia that has been present for longer than the suspected bleeding from the cyst has been. I would recommend that she be re-evaluated by her PCP in around 48hrs time to make sure that her pain is getting better and that her H&H are improving Departure - Departure Time of Disposition: 21:39 Disposition: Home, Self-Care 01 Condition: Fair Clinical Impression: Ruptured ovarian cyst, Abdominal pain - Discharge Information *PRESCRIPTION DRUG MONITORING PROGRAM REVIEWED*: No *COPY OF PRESCRIPTION DRUG MONITORING REPORT IN PATIENT MANJIT: No Instructions: Ovarian Cyst, [id number] Referrals: Simone Fierro MD [Primary Care Provider] - Forms: ED Department Discharge Additional Instructions: You were evaluated in the ER today regarding your lower pelvic/abdominal pain. Your laboratory evaluation demonstrates that you do have anemia, recommend that you try to increase your oral iron intake, you may do so by a vitamin, eat green, leafy vegetables, and red meats. Your ultrasound demonstrated that your lower pelvic pain might be due to a ruptured ovarian cyst. This fluid should resolve by itself, recommend that you follow up with your primary care provider or your ENTERPRISE APPLICATION ADMINISTRATOR in a couple days to have your blood levels redrawn to make sure that they are either stable, or increasing but not lowering. If you should have any increased dizziness, or increased pain in this area, this would be cause for concern to return to the ER for further management. Your ultrasound also demonstrated a small nabothian cyst, this is a cyst seen on the cervix, and this is a normal abnormal finding, and should not be worrisome to you. You may take 600 mg ibuprofen or 500 mg Tylenol every 6 hours as needed for further pain relief. Please return to the ED at any time if your symptoms should change or worsen. - My Orders Last 24 Hours: My Active Orders 04/09/19 21:16 Orthostatic Vital Signs [RC] ASDIRECTED - Assessment/Plan Last 24 Hours: My Active Orders 04/09/19 21:16 Orthostatic Vital Signs [RC] ASDIRECTED
--- NOTE | 2019-04-09 21:05 | US ---
Pelvic ultrasound: Multiple real-time images were obtained transvaginally. Comparison: Previous pelvic ultrasound study of 11/04/15. Findings: Free fluid is seen within the cul-de-sac which is slightly more than seen physiologically. This most likely is due to nonvisualized cyst rupture. Follicles are seen within both ovaries. No larger cyst or solid abnormality is seen. Small amount of fluid is seen within the endocervical and endometrial cavity within the lower uterine segment. No myometrial abnormality is seen. Small nabothian cyst is noted. Measurements: Uterus: Length 10.4 cm, AP height 4.8 cm, transverse width is 5.8 cm Right ovary: 3.7 x 2.4 x 2.0 cm Left ovary: 3.2 x 2.0 x 3.3 cm Impression: 1. Slightly prominent free fluid within the pelvis. This most likely represents a nonvisualized cyst rupture. 2. Small nabothian cyst. 3. Small amount of fluid within the endocervical and endometrial cavity within the lower uterine segment. 4. No additional abnormality seen. Diagnostic code #3
== END 2019-04-09 21:59 | disposition home or self-care (01) ==
LOC: JD.ED 17:48
DX: N83.209 Unspecified ovarian cyst, unspecified side (principal); Z88.5 Allergy status to narcotic agent; Z88.1 Allergy status to other antibiotic agents; Z91.040 Latex allergy status; Z91.018 Allergy to other foods
CPT/HCPCS: 36415; 76830; 76830-26; 80053; 85025; 86140; 99283; 99284-25

== ENCOUNTER 2019-07-29 13:27 | Emergency (ER) | payer BC, MEDICAID ==
--- NOTE | 2019-07-29 14:28 | EDM.PDOC ---
<Graciela Palm - Last Filed: 07/29/19 14:20> ED HPI GENERAL MEDICAL PROBLEM - General Chief Complaint: Allergic Reaction Stated Complaint: SKIN COMPLAINT/POSS ALLERGIC REACTION Time Seen by Provider: 07/29/19 13:41 Source of Information: Reports: Patient History Limitations: Reports: No Limitations - History of Present Illness INITIAL COMMENTS - FREE TEXT/NARRATIVE: Patient is a pleasant 33-year-old female with a history of allergic rhinitis presents to the ED for an allergic reaction. She states about 45 minutes ago she was at work when suddenly she felt her chest get tight, her tongue felt like it was swelling, she started getting short of breath, and developed hives on her neck and chest. She also felt warm and flushed for a few minutes. She took a half tablet of Benadryl and this did not relieve any of her symptoms at the time. She reports she has had several allergic reactions in the past, the last being a year ago, and the symptoms she experienced today were similar to the episodes in the past. She notes she is allergic to multiple things and tries to avoid any triggers. Her allergies include codeine, clindamycin, latex, gluten, and all berries. Since she has been in the ED, she states her symptoms are resolving. She no longer feels short of breath or that her tongue is swelling. She does still have mild chest tightness and feels a little warm. The hives have resolved as I see no visible rash or hive on the skin. She has never seen an direct sales representative or gone through allergy testing. She does not take any type of daily allergy medication as she reports they have never seemed to make a difference. Denies nausea, vomiting, and diarrhea. Onset: Today, Sudden Onset Date: 07/29/19 Onset Time: 13:30 Chest Pain Score (Numeric/FACES): 6 - Related Data Allergies Allergy/AdvReac Type Severity Reaction Status Date / Time codeine Allergy Mild Itching Verified 07/29/19 13:40 clindamycin Allergy Anaphylactic Verified 07/29/19 13:40 Shock latex Allergy Rash Verified 07/29/19 13:40 gluten AdvReac Stomach Verified 07/29/19 13:40 Upset berries Allergy Severe Anaphylactic Uncoded 07/29/19 13:40 Shock Home Meds: Home Meds Ferrous Sulfate [Slow Fe] 45 mg PO DAILY 07/29/19 [History] Norgestrel-Ethinyl Estradiol [Elinest-28 Tablet] 0.3 mg PO DAILY 07/29/19 [ History] Past Medical History - Past Health History Medical/Surgical History: Denies Medical/Surgical History HEENT History: Reports: Allergic Rhinitis, Impaired Vision Other HEENT History: Dental problems--broken teeth, wears eyeglasses. Seasonal allergies. Respiratory History: Reports: Other (See Below) Other Respiratory History: allergies. 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 Neurological History: Reports: Migraines Psychiatric History: Reports: Anxiety Hematologic History: Reports: Anemia, Iron Deficiency Oncologic (Cancer) History: Reports: Other (See Below) Other Oncologic History: pre-cancerous cervical screens. - Infectious Disease History Infectious Disease History: Reports: Chicken Pox - Past Surgical History Female Surgical History: Reports: Section Neurological Surgical History: Reports: None Social & Family History - Family History Family Medical History: Noncontributory - Tobacco Use Smoking Status *Q: Never Smoker Second Hand Smoke Exposure: No - Caffeine Use Caffeine Use: Reports: Soda - Recreational Drug Use Recreational Drug Use: No - Living Situation & Occupation Living situation: Reports: Occupation: Employed ED ROS ALLERGIC REACTION - Review of Systems Review Of Systems: See Below Constitutional: Denies: Fever, Chills, Weakness, Decreased Appetite HEENT: Reports: Throat Swelling (felt like it started 45 minutes prior to arrival). Denies: Ear Pain, Eye Pain, Rhinitis, Throat Pain Respiratory: Reports: Shortness of Breath. Denies: Cough Cardiovascular: Reports: Chest Pain (tightness). Denies: Edema, Lightheadedness , Syncope GI/Abdominal: Reports: Nausea. Denies: Abdominal Pain, Diarrhea, Vomiting Musculoskeletal: Reports: No Symptoms Skin: Reports: Other (reports she had hives on her chest and neck prior to arrival) Neurological: Reports: No Symptoms. Denies: Dizziness, Headache, Numbness, Syncope, Tingling Psychiatric: Reports: No Symptoms Immunologic: Reports: Food Allergy, Seasonal Allergy ED EXAM GENERAL NO PERIP PULSE - Physical Exam Exam: See Below Exam Limited By: No Limitations General Appearance: Alert, WD/WN, No Apparent Distress Eye Exam: Bilateral Eye: Normal Inspection, PERRL Nose: Normal Inspection, Normal Mucosa, No Blood Throat/Mouth: Normal Inspection, Normal Lips, Normal Teeth, Normal Gums, Normal Oropharynx, Normal Voice, No Airway Compromise Head: Atraumatic, Normocephalic Neck: Normal Inspection, Supple, Non-Tender, Full Range of Motion Respiratory/Chest: No Respiratory Distress, Lungs Clear, Normal Breath Sounds, No Accessory Muscle Use, Chest Non-Tender Cardiovascular: Normal Peripheral Pulses, Regular Rate, Rhythm, No Edema, No Murmur GI/Abdominal: Normal Bowel Sounds, Soft, Non-Tender, No Organomegaly, No Distention, No Mass Back Exam: Normal Inspection, Full Range of Motion Extremities: Normal Inspection, Normal Capillary Refill Neurological: Alert, Oriented, Normal Cognition, No Motor/Sensory Deficits Psychiatric: Normal Affect, Normal Mood Skin Exam: Warm, Dry, Intact, Normal Color, No Rash (no hives visualized at time of exam). No: Erythema Lymphatic: No Adenopathy Course - Vital Signs Last Recorded V/S: Last Vital Signs Temp 99.6 F 07/29/19 13:35 Pulse 90 07/29/19 13:35 Resp 16 07/29/19 13:35 BP 135/78 07/29/19 13:35 Pulse Ox 100 07/29/19 13:35 - Orders/Labs/Meds Meds: Medications Discontinued Medications Generic Name Dose Route Start Last Admin Trade Name Jerryq PRN Reason Stop Dose Admin Diphenhydramine HCl 25 mg 07/29/19 14:38 07/29/19 14:42 Benadryl IM 07/29/19 14:39 25 mg ONETIME ONE Administration Departure - Departure Disposition: Home, Self-Care 01 Clinical Impression: Allergic reaction Qualifiers: Encounter type: initial encounter Qualified Code(s): T78.40XA - Allergy, unspecified, initial encounter - Discharge Information Instructions: Allergies, Adult, [id number] Referrals: Simone Fierro MD [Primary Care Provider] - Forms: ED Department Discharge Additional Instructions: You were evaluated in the ER today regarding your possible allergic reaction. You were given a 25 mg IM injection of Benadryl for symptomatic management, as most of your symptoms seem to have subsided after you checked into the ER. Recommend you try to go home, rest and relax. If you can account for what you may have come in contact with, please try to refrain from future contact with this substance. You may follow-up with your primary care provider as needed for further testing if warranted. Please return to the ER at any time however if your symptoms change or worsen. Sepsis Event Note - Evaluation Sepsis Screening Result: No Definite Risk - Focused Exam Vital Signs: Vital Signs Temp Pulse Resp BP Pulse Ox 07/29/19 13:35 99.6 F 90 16 135/78 100 Date Exam was Performed: 07/29/19 Time Exam was Performed: 14:20 <Yulisa Matute - Last Filed: 07/29/19 14:57> Course - Re-Assessments/Exams Free Text/Narrative Re-Assessment/Exam: 07/29/19 14:51 I have read and reviewed the student's HPI and examined the patient and agree with Lencho Palm NP student. Patient's clinical symptoms do fit with a allergic type reaction, she did receive mild benefit from the 12.5 mg of Benadryl she has already taken. As the patient symptoms have already resolved from time of being here. I will provide her with 25 mg IM Benadryl and have her likely discharged home with general recommendations. Patient is okay with this treatment plan at this time. Departure - Departure Time of Disposition: 14:55 Condition: Fair - Discharge Information *PRESCRIPTION DRUG MONITORING PROGRAM REVIEWED*: No *COPY OF PRESCRIPTION DRUG MONITORING REPORT IN PATIENT MANJIT: No Sepsis Event Note - Focused Exam Date Exam was Performed: 07/29/19 Time Exam was Performed: 14:51
[2019-07-29] MEDS ORDERED: diphenhydrAMINE 50 MG/ML SDV IM ONE (14:38)
[2019-07-29 16:25] VITALS: BP 118/75; PULSE 84
== END 2019-07-29 15:35 | disposition home or self-care (01) ==
LOC: JD.ED 13:27
DX: T78.40XA Allergy, unspecified, initial encounter (principal); D50.9 Iron deficiency anemia, unspecified; Z88.5 Allergy status to narcotic agent; Z88.1 Allergy status to other antibiotic agents; Z91.040 Latex allergy status; Z91.09 Other allergy status, other than to drugs and biological substances; Z91.018 Allergy to other foods; Z79.899 Other long term (current) drug therapy
CPT/HCPCS: 96372; 99284; J1200; 99282

== ENCOUNTER 2019-08-13 07:37 | Emergency (ER) | payer BC, MEDICAID ==
[2019-08-13 07:49] VITALS: BP 127/63; PULSE 68
--- NOTE | 2019-08-13 08:28 | EDM.PDOC ---
ED HPI GENERAL MEDICAL PROBLEM - General Chief Complaint: ENT Problem Stated Complaint: INFECTED TOOTH Time Seen by Provider: 08/13/19 08:10 Source of Information: Reports: Patient History Limitations: Reports: No Limitations - History of Present Illness INITIAL COMMENTS - FREE TEXT/NARRATIVE: The patient presents with dental pain. This has been going on for over a week but the pain is much worse starting last night. She is trying to get into her dentist. She has no fever or chills. Onset: Gradual Duration: Week(s): Location: Reports: Other ([facility]) Quality: Reports: Sharp Severity: Severe Improves with: Reports: None Worsens with: Reports: None Associated Symptoms: Reports: No Other Symptoms Left Upper Tooth/Teeth Pain Score (Numeric/FACES): 10 - Related Data Allergies Allergy/AdvReac Type Severity Reaction Status Date / Time codeine Allergy Mild Itching Verified 08/13/19 07:45 clindamycin Allergy Anaphylactic Verified 08/13/19 07:45 Shock latex Allergy Rash Verified 08/13/19 07:45 gluten AdvReac Stomach Verified 08/13/19 07:45 Upset berries Allergy Severe Anaphylactic Uncoded 08/13/19 07:45 Shock Home Meds: Home Meds Ferrous Sulfate [Slow Fe] 45 mg PO DAILY 07/29/19 [History] Norgestrel-Ethinyl Estradiol [Elinest-28 Tablet] 0.3 mg PO DAILY 07/29/19 [ History] Penicillin V Potassium 500 mg PO Q6HR #40 tab 08/13/19 [Rx] oxyCODONE HCl/Acetaminophen [Percocet 5-325 mg Tablet] 1 - 2 each PO Q6HR PRN # 15 tablet 08/13/19 [Rx] Past Medical History - Past Health History Medical/Surgical History: Denies Medical/Surgical History HEENT History: Reports: Allergic Rhinitis, Impaired Vision Other HEENT History: Dental problems--broken teeth, wears eyeglasses. Seasonal allergies. Respiratory History: Reports: Other (See Below) Other Respiratory History: allergies. Gastrointestinal History: Reports: Chronic Diarrhea Other Gastrointestinal History: gluten intolerence Genitourinary History: Reports: UTI, Recurrent CTRS History: Reports: , Therapeutic Other CTRS History: Has had 2 therapeutic abortions. Neurological History: Reports: Migraines Psychiatric History: Reports: Anxiety Hematologic History: Reports: Anemia, Iron Deficiency Oncologic (Cancer) History: Reports: Other (See Below) Other Oncologic History: pre-cancerous cervical screens. - Infectious Disease History Infectious Disease History: Reports: Chicken Pox - Past Surgical History Female Surgical History: Reports: Section Neurological Surgical History: Reports: None Social & Family History - Family History Family Medical History: Noncontributory - Tobacco Use Smoking Status *Q: Never Smoker Second Hand Smoke Exposure: No - Caffeine Use Caffeine Use: Reports: Soda - Recreational Drug Use Recreational Drug Use: No - Living Situation & Occupation Living situation: Reports: Occupation: Employed ED ROS ENT - Review of Systems Review Of Systems: See Below Constitutional: Reports: No Symptoms HEENT: Reports: Dental Pain Respiratory: Reports: No Symptoms Cardiovascular: Reports: No Symptoms Endocrine: Reports: No Symptoms GI/Abdominal: Reports: No Symptoms : Reports: No Symptoms Musculoskeletal: Reports: No Symptoms ED EXAM, ENT - Physical Exam Exam: See Below Exam Limited By: No Limitations General Appearance: Alert, No Apparent Distress Ears: Normal External Exam Nose: Normal Inspection Mouth/Throat: Other (Pain upon palpation with edema and erythema to the left upper premolar) Course - Vital Signs Last Recorded V/S: Last Vital Signs Temp 98.8 F 08/13/19 07:40 Pulse 68 08/13/19 07:40 Resp 18 08/13/19 07:40 BP 127/63 08/13/19 07:40 Pulse Ox 98 08/13/19 07:40 Departure - Departure Time of Disposition: 08:25 Disposition: Home, Self-Care 01 Condition: Good Clinical Impression: Pain, dental, Dental abscess - Discharge Information *PRESCRIPTION DRUG MONITORING PROGRAM REVIEWED*: No *COPY OF PRESCRIPTION DRUG MONITORING REPORT IN PATIENT MANJIT: No Prescriptions: oxyCODONE HCl/Acetaminophen [Percocet 5-325 mg Tablet] 1 - 2 each PO Q6HR PRN # 15 tablet PRN Reason: Pain Penicillin V Potassium 500 mg PO Q6HR #40 tab Referrals: PCP,None [Primary Care Provider] - Additional Instructions: Take the pen VK 4 times per day. Take tylenol or motrin for pain. If that does not help, try the percocet. Follow up with your dentist. Please return if you are worse. Sepsis Event Note - Evaluation Sepsis Screening Result: No Definite Risk - Focused Exam Vital Signs: Vital Signs Temp Pulse Resp BP Pulse Ox 08/13/19 07:40 98.8 F 68 18 127/63 98 Date Exam was Performed: 08/13/19 Time Exam was Performed: 08:23
== END 2019-08-13 08:33 | disposition home or self-care (01) ==
LOC: JD.ED 07:37
DX: K04.7 Periapical abscess without sinus (principal); Z88.5 Allergy status to narcotic agent; Z88.1 Allergy status to other antibiotic agents; Z91.018 Allergy to other foods
CPT/HCPCS: 99282

== ENCOUNTER 2019-11-24 14:56 | Emergency (ER) | payer BC ==
--- NOTE | 2019-11-24 15:27 | EDM.PDOC ---
ED HPI GENERAL MEDICAL PROBLEM - General Chief Complaint: COMMUNITY HEALTH AGENT Problem Stated Complaint: EXCESSIVE BLEEDING FROM CONTROL Time Seen by Provider: 11/24/19 15:06 Source of Information: Reports: Patient History Limitations: Reports: No Limitations - History of Present Illness INITIAL COMMENTS - FREE TEXT/NARRATIVE: Ms. Oakes is a pleasant 34-year-old woman with a past medical history significant for untreated anxiety, G5, P3023, who now presents to the ED stating that has been on Cryselle control pills for the past 7 months, approximately, and has not had a menstrual period since she began them, however , she has been spotting for the past 2 weeks. She then developed heavy vaginal bleeding around 6:00 this morning, associated with lower abdominal cramps. She states that she has soaked about 2-3 pads over the 9 hours since her bleeding began. She states that she feels lightheaded when upright, and she feels like she is anemic. Here in the ED, the patient is found to be hemodynamically stable, afebrile, saturating 100% on room air. The patient states that she suffers from chronic alternating constipation and diarrhea. Other than these symptoms, however, the patient denies recent fever, chills, sore throat, ear pain, nasal or sinus congestion, cough, dyspnea, chest pain, palpitations, nausea, vomiting, abdominal pain, urinary symptoms, recent weight gain or weight loss, recent bloody bowel movements or black bowel movements, recent joint aches, headaches, or rashes. The patient does not have a PCP. Her Film Waxer is Dr. Simone Fierro. - Related Data Allergies Allergy/AdvReac Type Severity Reaction Status Date / Time codeine Allergy Severe Itching Verified 11/24/19 15:05 clindamycin Allergy Anaphylactic Verified 08/13/19 07:45 Shock latex Allergy Rash Verified 08/13/19 07:45 gluten AdvReac Stomach Verified 08/13/19 07:45 Upset berries Allergy Severe Anaphylactic Uncoded 08/13/19 07:45 Shock Home Meds: Home Meds Ferrous Sulfate [Slow Fe] 45 mg PO DAILY 07/29/19 [History] norgestrel-ethinyl estradioL [Elinest-28 Tablet] 0.3 mg PO DAILY 07/29/19 [ History] Penicillin V Potassium 500 mg PO Q6HR #40 tab 08/13/19 [Rx] oxyCODONE HCl/Acetaminophen [Percocet 5-325 mg Tablet] 1 - 2 each PO Q6HR PRN # 15 tablet 08/13/19 [Rx] Past Medical History HEENT History: Reports: Allergic Rhinitis, Impaired Vision (wears glasses) COMMUNITY HEALTH AGENT History: Reports: Therapeutic (x 2) : 5 Para: 3 Psychiatric History: Reports: Anxiety (untreated) Hematologic History: Reports: Anemia, Iron Deficiency - Infectious Disease History Infectious Disease History: Reports: Chicken Pox - Past Surgical History Female Surgical History: Reports: Section (x 3) Social & Family History - Family History Family Medical History: Noncontributory - Tobacco Use Smoking Status *Q: Never Smoker - Caffeine Use Caffeine Use: Reports: Soda - Alcohol Use Alcohol Use History: No - Recreational Drug Use Recreational Drug Use: Yes Drug Use in Last 12 Months: No Recreational Drug Type: Reports: Marijuana/Hashish (last smoked when in her 20s) - Living Situation & Occupation Living situation: Reports: , with Significant Other (Boyfriend), with Family (5 kids) Occupation: Employed ([employer]) ED ROS GENERAL - Review of Systems Review Of Systems: Comprehensive ROS is negative, except as noted in HPI. GI/Abdominal: Reports: Constipation (chronic), Diarrhea (chronic) ED EXAM, RENAL/ - Physical Exam Exam: See Below Exam Limited By: No Limitations General Appearance: Alert, WD/WN, No Apparent Distress Eye Exam: Bilateral Eye: EOMI, Normal Inspection Ears: Normal External Exam, Hearing Grossly Normal Nose: Normal Inspection Throat/Mouth: Normal Inspection, Normal Lips, Normal Voice, No Airway Compromise Head: Atraumatic, Normocephalic Neck: Normal Inspection, Full Range of Motion Respiratory/Chest: No Respiratory Distress, Lungs Clear, Normal Breath Sounds, No Accessory Muscle Use Cardiovascular: Normal Peripheral Pulses, Regular Rate, Rhythm, No Edema, No Gallop, No JVD, No Murmur, No Rub GI/Abdominal: Normal Bowel Sounds, Soft, No Organomegaly, No Distention, No Abnormal Bruit, No Mass, Tender (Mild, lower abdominal, only. Nontender elsewhere.) (Female) Exam: Deferred Rectal (Female) Exam: Deferred Back Exam: Normal Inspection, Full Range of Motion. No: CVA Tenderness (L), CVA Tenderness (R) Extremities: Normal Inspection, Normal Range of Motion, No Pedal Edema, Normal Capillary Refill Neurological: Alert, Oriented, Normal Cognition, No Motor/Sensory Deficits Psychiatric: Normal Affect Skin Exam: Warm, Dry, Intact, Normal Color, No Rash Course - Vital Signs Last Recorded V/S: Last Vital Signs Temp 37.1 C 11/24/19 15:06 Pulse 67 11/24/19 16:26 Resp 18 11/24/19 16:26 BP 111/68 11/24/19 16:26 Pulse Ox 99 11/24/19 16:26 Orthostatic Blood Pressure [ 120/67 Standing] Orthostatic Blood Pressure [ 116/64 Supine] - Orders/Labs/Meds Orders: Active Orders 24 hr Category Date Time Status Orthostatic Vital Signs [RC] STAT Care 11/24/19 15:15 Active Labs: Laboratory Tests 11/24/19 Range/Units 15:24 Hgb 12.4 (11.2-15.7) gm/dl Hct 37.7 (34.1-44.9) % - Re-Assessments/Exams Free Text/Narrative Re-Assessment/Exam: 11/24/19 15:25 As above, the patient has had vaginal bleeding today, approximately 2-3 pads over the past 9 hours. She is hemodynamically stable, but states that she feels lightheaded when upright. I have therefore ordered orthostatics and a hemogram. When I have those results, I will contact Dr. Fierro to see if there is anything else that he would recommend. 11/24/19 15:45 The patient is not orthostatic. Her H/H is 12.4/37.7. 11/24/19 15:[address] Fierro at 15:55. He recommended that I reassure the patient that her current bleeding appears to be due to breakthrough, and that there is nothing to be overly concerned about. If the patient is still concerned, she can follow-up with Dr. Fierro as an outpatient. 11/24/19 16:01 Test results and my conversation with Dr. Fierro discussed with the patient. She is satisfied with Dr. Fierro's recommendations. I will discharge her home. Departure - Departure Time of Disposition: 16:02 Disposition: Home, Self-Care 01 Condition: Good Clinical Impression: Episode of heavy vaginal bleeding - Discharge Information *PRESCRIPTION DRUG MONITORING PROGRAM REVIEWED*: Not Applicable *COPY OF PRESCRIPTION DRUG MONITORING REPORT IN PATIENT MANJIT: Not Applicable Instructions: Dysfunctional Uterine Bleeding Referrals: Simone Fierro MD [Primary Care Provider] - Forms: ED Department Discharge Additional Instructions: You were seen in the emergency room after developing heavy vaginal bleeding this morning. Work-up in the ER included positional blood pressure checks and a hemogram. Your blood pressure did not drop between lying and standing, indicating that you are not intravascularly depleted, and your hemoglobin/hematocrit were normal at 12.4/37.7, indicating that you are not anemic. Your case was discussed with your Film Waxer, Dr. Fierro, who felt that your vaginal bleeding is due to a breakthrough from your contraceptive control pill, and while inconvenient, is nothing to be worried about. If your symptoms persist, please follow-up with Dr. Fierro at the next available appointment. If any other problems, please do not hesitate to return to the ER. Sepsis Event Note (ED) - Evaluation Sepsis Screening Result: No Definite Risk - Focused Exam Vital Signs: Vital Signs Temp Pulse Resp BP Pulse Ox 11/24/19 16:26 67 18 111/68 99 11/24/19 15:06 37.1 C 75 16 128/76 100 - My Orders Last 24 Hours: My Active Orders 11/24/19 15:15 Orthostatic Vital Signs [RC] STAT - Assessment/Plan Last 24 Hours: My Active Orders 11/24/19 15:15 Orthostatic Vital Signs [RC] STAT
[2019-11-24 16:29] VITALS: BP 111/68; PULSE 67
== END 2019-11-24 16:29 | disposition home or self-care (01) ==
LOC: JD.ED 14:56
DX: N93.9 Abnormal uterine and vaginal bleeding, unspecified (principal); Z88.5 Allergy status to narcotic agent; Z88.1 Allergy status to other antibiotic agents; Z91.040 Latex allergy status; Z91.018 Allergy to other foods; Z91.048 Other nonmedicinal substance allergy status
CPT/HCPCS: 36415; 85014; 85018; 99282; 99284

== ENCOUNTER 2020-04-17 16:25 | Emergency (ER) | payer SELFPAY ==
[2020-04-17 16:35] VITALS: BP 126/63; PULSE 78
[2020-04-17] MEDS ORDERED: Sodium Chloride 0.9% 10 ML Syringe FLUSH PRN (17:06)
--- NOTE | 2020-04-17 19:02 | EDM.PDOC ---
<Mode Granda L - Last Filed: 04/17/20 19:05> ED HPI GENERAL MEDICAL PROBLEM - General Chief Complaint: Abdominal Pain Stated Complaint: ABDOMINAL PAIN Time Seen by Provider: 04/17/20 16:56 Source of Information: Reports: Patient, RN Notes Reviewed - History of Present Illness INITIAL COMMENTS - FREE TEXT/NARRATIVE: 34 yr old female with onset of L mid abd pain yesterday afternoon that has continued today. Moderately uncomortable. Pain does not radiate. No fever, chills, nausea or vomiting. No prior surgeries. No voiding sx. Left Abdomen Pain Score (Numeric/FACES): 7 - Related Data Allergies Allergy/AdvReac Type Severity Reaction Status Date / Time clindamycin Allergy Severe Anaphylactic Verified 04/17/20 16:38 Shock codeine Allergy Severe Itching Verified 11/24/19 15:05 latex Allergy Severe Rash Verified 04/17/20 16:38 gluten AdvReac Severe Stomach Verified 04/17/20 16:38 Upset berries Allergy Severe Anaphylactic Uncoded 08/13/19 07:45 Shock Home Meds: Home Meds norgestrel-ethinyl estradioL [Elinest-28 Tablet] 0.3 mg PO DAILY 07/29/19 [History] Past Medical History - Past Health History Medical/Surgical History: Denies Medical/Surgical History HEENT History: Reports: Allergic Rhinitis, Impaired Vision Other HEENT History: Dental problems--broken teeth, wears eyeglasses. Seasonal allergies. Respiratory History: Reports: Other (See Below) Other Respiratory History: allergies. Gastrointestinal History: Reports: Chronic Diarrhea Other Gastrointestinal History: gluten intolerence Genitourinary History: Reports: UTI, Recurrent IRONWORKER History: Reports: Therapeutic Other IRONWORKER History: Has had 2 therapeutic abortions. Neurological History: Reports: Migraines Psychiatric History: Reports: Anxiety Hematologic History: Reports: Anemia, Iron Deficiency Oncologic (Cancer) History: Reports: Other (See Below) Other Oncologic History: pre-cancerous cervical screens. - Infectious Disease History Infectious Disease History: Reports: Chicken Pox - Past Surgical History Female Surgical History: Reports: Section, Other (See Below) Other Female Surgeries/Procedures: ovaarian cyst problems Neurological Surgical History: Reports: None Social & Family History - Family History Family Medical History: Noncontributory - Tobacco Use Tobacco Use Status *Q: Never Tobacco User - Caffeine Use Caffeine Use: Reports: Soda - Recreational Drug Use Recreational Drug Use: No - Living Situation & Occupation Living situation: Reports: , with Significant Other (Boyfriend), with Family (5 kids) Occupation: Employed ([employer]) ED ROS GENERAL - Review of Systems Review Of Systems: See Below Constitutional: Denies: Fever, Chills, Diaphoresis HEENT: Reports: No Symptoms Respiratory: Denies: Shortness of Breath, Cough Cardiovascular: Denies: Chest Pain GI/Abdominal: Reports: Abdominal Pain. Denies: Nausea, Vomiting : Reports: No Symptoms Musculoskeletal: Denies: Back Pain Skin: Reports: No Symptoms Neurological: Reports: No Symptoms ED EXAM, NEURO - Physical Exam Exam: See Below General Appearance: Alert, No Apparent Distress Throat/Mouth: Normal Inspection Head Exam: Atraumatic Neck: Supple Respiratory/Chest: No Respiratory Distress, Lungs Clear, Normal Breath Sounds Cardiovascular: Regular Rate, Rhythm GI/Abdominal: Soft, Tender (mild mid abd tenderness). No: No Distention, Rebound Skin Exam: Warm, Dry, Normal Color Course - Re-Assessments/Exams Free Text/Narrative Re-Assessment/Exam: 04/17/20 19:11 HCG has come back positive. quant. Hcg has been ordered. Awaiting Radiologist report of US. WBC nl, CRP 0.4. Change of shift, will transfer care to Dr Marya robb. Departure - Departure Disposition: Home, Self-Care 01 Clinical Impression: Pelvic pain - Discharge Information Referrals: Simone Fierro MD [Primary Care Provider] - Forms: ED Department Discharge Additional Instructions: Return to the emergency room with any questions problems or worsening symptoms. Take your [place], the pain pill when you get home. Follow-up with Dr. Fierro the middle of this next week for recheck. Recheck the test at that time. We need to ensure this is negative. Sepsis Event Note (ED) - Evaluation Sepsis Screening Result: No Definite Risk <Clemente Feliciano - Last Filed: 04/17/20 20:39> Course - Vital Signs Last Recorded V/S: Last Vital Signs Temp 36.7 C 04/17/20 16:32 Pulse 78 04/17/20 16:32 Resp 20 04/17/20 16:32 BP 126/63 04/17/20 16:32 Pulse Ox 100 04/17/20 16:32 - Orders/Labs/Meds Orders: Active Orders 24 hr Category Date Time Status Peripheral IV Care [RC] . DIRECTED Care 04/17/20 17:07 Active Pelvis Non OB Ltd [US] Stat Exams 04/17/20 17:07 Taken CULTURE URINE [RM] Stat Lab 04/17/20 19:26 Received Sodium Chloride 0.9% [Saline Flush] Med 04/17/20 17:06 Active 10 ml FLUSH ASDIRECTED PRN Peripheral IV Insertion Adult [OM.PC] Stat Oth 04/17/20 17:06 Ordered Medication Orders Sodium Chloride (Saline Flush) 10 ml FLUSH ASDIRECTED PRN PRN Reason: Keep Vein Open Last Admin: 04/17/20 17:22 Dose: 10 ml Documented by: MARITA Labs: Laboratory Tests 04/17/20 04/17/20 04/17/20 Range/Units 17:20 17:20 17:20 WBC 6.55 (3.98-10.04) K/mm3 RBC 4.66 (3.98-5.22) M/mm3 Hgb 13.4 (11.2-15.7) gm/dl Hct 40.6 (34.1-44.9) % MCV 87.1 (79.4-94.8) fl MCH 28.8 (25.6-32.2) pg MCHC 33.0 (32.2-35.5) g/dl RDW Std Deviation 41.3 (36.4-46.3) fL Plt Count 292 (182-369) K/mm3 MPV 9.5 (9.4-12.3) fl Neut % (Auto) 60.3 (34.0-71.1) % Lymph % (Auto) 28.5 (19.3-51.7) % [place] % (Auto) 9.8 (4.7-12.5) % Eos % (Auto) 0.9 (0.7-5.8) Baso % (Auto) 0.3 (0.1-1.2) % Neut # (Auto) 3.95 (1.56-6.13) K/mm3 Lymph # (Auto) 1.87 (1.18-3.74) K/mm3 [place] # (Auto) 0.64 H (0.24-0.36) K/mm3 Eos # (Auto) 0.06 (0.04-0.36) K/mm3 Baso # (Auto) 0.02 (0.01-0.08) K/mm3 Sodium 137 (136-145) mEq/L Potassium 3.7 (3.5-5.1) mEq/L Chloride 105 (98-107) mEq/L Carbon Dioxide 24 (21-32) mEq/L Anion Gap 11.7 (5-15) BUN 8 (7-18) mg/dL Creatinine 0.9 (0.55-1.02) mg/dL Est Cr Clr Drug Dosing 69.00 mL/min Estimated GFR (MDRD) > 60 (>60) mL/min BUN/Creatinine Ratio 8.9 L (14-18) Glucose 135 H (74-106) mg/dL Calcium 8.6 (8.5-10.1) mg/dL Total Bilirubin 0.3 (0.2-1.0) mg/dL AST 11 L (15-37) U/L ALT 17 (14-59) U/L Alkaline Phosphatase 56 (46-116) U/L C-Reactive Protein 0.4 (<1.0) mg/dL Total Protein 6.8 (6.4-8.2) g/dl Albumin 3.3 L (3.4-5.0) g/dl Globulin 3.5 gm/dL Albumin/Globulin Ratio 0.9 L (1-2) HCG, Qual (NEGATIVE) HCG, Quant mIU/mL Urine Color (Yellow) Urine Appearance (Clear) Urine pH (5.0-8.0) Ur Specific [employer] [place] (1.005-1.030) Urine Protein (Negative) Urine Glucose (UA) (Negative) Urine Ketones (Negative) Urine Occult Blood (Negative) Urine Nitrite (Negative) Urine Bilirubin (Negative) Urine Urobilinogen (0.2-1.0) Ur Leukocyte Esterase (Negative) Urine RBC (0-5) /hpf Urine WBC (0-5) /hpf Ur Squamous Epith Cells (0-5) /hpf Urine Bacteria (FEW) /hpf Urine Mucus (FEW) /hpf 04/17/20 04/17/20 04/17/20 Range/Units 17:20 17:20 19:26 WBC (3.98-10.04) K/mm3 RBC (3.98-5.22) M/mm3 Hgb (11.2-15.7) gm/dl Hct (34.1-44.9) % MCV (79.4-94.8) fl MCH (25.6-32.2) pg MCHC (32.2-35.5) g/dl RDW Std Deviation (36.4-46.3) fL Plt Count (182-369) K/mm3 MPV (9.4-12.3) fl Neut % (Auto) (34.0-71.1) % Lymph % (Auto) (19.3-51.7) % [place] % (Auto) (4.7-12.5) % Eos % (Auto) (0.7-5.8) Baso % (Auto) (0.1-1.2) % Neut # (Auto) (1.56-6.13) K/mm3 Lymph # (Auto) (1.18-3.74) K/mm3 [place] # (Auto) (0.24-0.36) K/mm3 Eos # (Auto) (0.04-0.36) K/mm3 Baso # (Auto) (0.01-0.08) K/mm3 Sodium (136-145) mEq/L Potassium (3.5-5.1) mEq/L Chloride (98-107) mEq/L Carbon Dioxide (21-32) mEq/L Anion Gap (5-15) BUN (7-18) mg/dL Creatinine (0.55-1.02) mg/dL Est Cr Clr Drug Dosing mL/min Estimated GFR (MDRD) (>60) mL/min BUN/Creatinine Ratio (14-18) Glucose (74-106) mg/dL Calcium (8.5-10.1) mg/dL Total Bilirubin (0.2-1.0) mg/dL AST (15-37) U/L ALT (14-59) U/L Alkaline Phosphatase (46-116) U/L C-Reactive Protein (<1.0) mg/dL Total Protein (6.4-8.2) g/dl Albumin (3.4-5.0) g/dl Globulin gm/dL Albumin/Globulin Ratio (1-2) HCG, Qual Positive H (NEGATIVE) HCG, Quant < 1.0 mIU/mL Urine Color Yellow (Yellow) Urine Appearance Clear (Clear) Urine pH 7.0 (5.0-8.0) Ur Specific [employer] [place] 1.020 (1.005-1.030) Urine Protein Negative (Negative) Urine Glucose (UA) Trace H (Negative) Urine Ketones Negative (Negative) Urine Occult Blood Negative (Negative) Urine Nitrite Negative (Negative) Urine Bilirubin Negative (Negative) Urine Urobilinogen 0.2 (0.2-1.0) Ur Leukocyte Esterase Trace H (Negative) Urine RBC 0-5 (0-5) /hpf Urine WBC 5-10 H (0-5) /hpf Ur Squamous Epith Cells 0-5 (0-5) /hpf Urine Bacteria Few (FEW) /hpf Urine Mucus Few (FEW) /hpf Meds: Medications Generic Name Dose Route Start Last Admin Trade Name Freq PRN Reason Stop Dose Admin Sodium Chloride 10 ml 04/17/20 17:06 04/17/20 17:22 Saline Flush FLUSH 10 ml ASDIRECTED PRN Administration Keep Vein Open - Re-Assessments/Exams Free Text/Narrative Re-Assessment/Exam: 04/17/20 20:23 Assumed care at change of shift quantitative hCG is nondetectable albeit her serum test was positive. Pelvic ultrasound shows minimal fluid in the endometrial cavity moderate fluid observed in the cul-de-sac otherwise unremarkable study no evidence of or ectopic. The patient is currently on control pills and her had a vasectomy. I did discuss further evaluation for this pelvic pain, however the patient just wants to go home at this time 04/17/20 20:37 I did discuss the the patient's case with Dr. Ruiz, on-call IRONWORKER, who agrees with the discharge and disposition. Departure - Departure Time of Disposition: 20:37 Sepsis Event Note (ED) - Focused Exam Vital Signs: Vital Signs Temp Pulse Resp BP Pulse Ox 04/17/20 16:32 36.7 C 78 20 126/63 100 - My Orders Last 24 Hours: My Active Orders 04/17/20 19:26 CULTURE URINE [RM] Stat - Assessment/Plan Last 24 Hours: My Active Orders 04/17/20 19:26 CULTURE URINE [RM] Stat
[2020-04-17] MEDS ORDERED: Acetaminophen/HYDROcodone 325-5 MG Tab PO ONE (20:37)
--- NOTE | 2020-04-19 10:11 | US ---
PROCEDURE INFORMATION: Exam: US Pelvis Limited, Transabdominal Exam date and time: 04/17/2020 5:45 PM Age: 34 years old Clinical indication: Pelvic pain; Prior surgery; Surgery date: 6+ months; Surgery type: 3 c-sections TECHNIQUE: Imaging protocol: Real-time transabdominal pelvic ultrasound with image documentation. Limited exam. COMPARISON: None. Uterus is normal in size and echotexture. No adnexal mass. No significant ovarian findings. Small volume fluid noted within the endometrial canal. Moderate fluid noted in the cul-de-sac. FINDINGS: See above. IMPRESSION: Minimal fluid in the endometrial cavity. Moderate fluid observed in the cul-de-sac. Otherwise unremarkable study. Thank you for allowing us to participate in the care of your patient. Dictated and Authenticated by: John Bradley MD 04/17/2020 8:19 PM Central Time ([place] & [place]) SAMANTHA
== END 2020-04-17 20:49 | disposition home or self-care (01) ==
LOC: JD.ED 16:25
DX: O99.891 Other specified diseases and conditions complicating pregnancy (principal); R10.2 Pelvic and perineal pain; Z88.1 Allergy status to other antibiotic agents; Z88.5 Allergy status to narcotic agent; Z91.040 Latex allergy status; Z91.018 Allergy to other foods; Z91.09 Other allergy status, other than to drugs and biological substances
CPT/HCPCS: 36415; 76857; 80053; 81001; 84702; 84703; 85025; 86140; 87086; 99284; A9270; 99283

== ENCOUNTER 2020-07-16 20:47 | Emergency (ER) | payer BC, MEDICAID ==
[2020-07-16 20:57] VITALS: BP 139/67; PULSE 75
--- NOTE | 2020-07-16 21:14 | EDM.PDOC ---
ED HPI GENERAL MEDICAL PROBLEM - General Chief Complaint: General Stated Complaint: SWOLLEN RT FACE DUE CAUSED BY TOOTHACHE Time Seen by Provider: 07/16/20 20:52 Source of Information: Reports: Patient, RN Notes Reviewed History Limitations: Reports: No Limitations - History of Present Illness INITIAL COMMENTS - FREE TEXT/NARRATIVE: Patient is a 34-year-old female who presents to the ED for evaluation of her dental pain and swelling. Patient notes she is been having ongoing issues with her teeth for quite some time and is scheduled for extraction in September. She notes that over the past few days she has developed some slight pain, and got quite a bit of swelling that she appreciated today, this involves a right upper incisor. She has had no fevers or chills, cough or shortness of breath, nausea/vomiting/diarrhea. Right Tooth/Teeth Pain Score (Numeric/FACES): 7 - Related Data Allergies Allergy/AdvReac Type Severity Reaction Status Date / Time clindamycin Allergy Severe Anaphylactic Verified 07/16/20 20:57 Shock codeine Allergy Severe Itching Verified 07/16/20 20:57 latex Allergy Severe Rash Verified 07/16/20 20:57 gluten AdvReac Severe Stomach Verified 07/16/20 20:57 Upset berries Allergy Severe Anaphylactic Uncoded 08/13/19 07:45 Shock Home Meds: Home Meds norgestrel-ethinyl estradioL [Elinest-28 Tablet] 0.3 mg PO DAILY 07/29/19 [History] Acetaminophen/HYDROcodone [Montrose 325-5 MG] 1 tab PO Q6H PRN #6 tablet 07/16/20 [Rx] Amoxicillin 500 mg PO TID 10 Days #30 tab 07/16/20 [Rx] Naproxen [Naprosyn] 500 mg PO Q12HR #14 tab 07/16/20 [Rx] Past Medical History - Past Health History Medical/Surgical History: Denies Medical/Surgical History HEENT History: Reports: Allergic Rhinitis, Impaired Vision Other HEENT History: Dental problems--broken teeth, wears eyeglasses. Seasonal allergies. Respiratory History: Reports: Other (See Below) Other Respiratory History: allergies. 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 Neurological History: Reports: Migraines Psychiatric History: Reports: Anxiety Hematologic History: Reports: Anemia, Iron Deficiency Oncologic (Cancer) History: Reports: Other (See Below) Other Oncologic History: pre-cancerous cervical screens. - Infectious Disease History Infectious Disease History: Reports: Chicken Pox - Past Surgical History Female Surgical History: Reports: Section, Other (See Below) Other Female Surgeries/Procedures: ovaarian cyst problems Neurological Surgical History: Reports: None Social & Family History - Family History Family Medical History: No Pertinent Family History - Tobacco Use Tobacco Use Status *Q: Never Tobacco User - Caffeine Use Caffeine Use: Reports: Soda - Recreational Drug Use Recreational Drug Use: No - Living Situation & Occupation Living situation: Reports: , with Significant Other (Boyfriend), with Family (5 kids) Occupation: Employed ([employer]) ED ROS GENERAL - Review of Systems Review Of Systems: Comprehensive ROS is negative, except as noted in HPI. ED EXAM, GENERAL - Physical Exam Exam: See Below Exam Limited By: No Limitations General Appearance: Alert, WD/WN, No Apparent Distress Throat/Mouth: Normal Inspection, Normal Lips, Other (dentition in poor repair, some erythem at gumline on right upper jaw near incisor that is bothersome.) Respiratory/Chest: No Respiratory Distress, Lungs Clear, Normal Breath Sounds, No Accessory Muscle Use, Chest Non-Tender Cardiovascular: Normal Peripheral Pulses, Regular Rate, Rhythm, No Edema Extremities: Normal Inspection, Normal Capillary Refill Neurological: Alert, Oriented, Normal Cognition, No Motor/Sensory Deficits Psychiatric: Normal Affect, Normal Mood Skin Exam: Warm, Dry, Intact, Normal Color, No Rash Course - Vital Signs Last Recorded V/S: Last Vital Signs Temp 97.8 F 07/16/20 20:51 Pulse 75 07/16/20 20:51 Resp 18 07/16/20 20:51 BP 139/67 07/16/20 20:51 Pulse Ox 99 07/16/20 20:51 - Re-Assessments/Exams Free Text/Narrative Re-Assessment/Exam: 07/16/20 21:17 Patient presents to the ED for her dental pain. There is some swelling appreciated on her right upper jaw. Somewhat tender as well. Patient was started on amoxicillin, given a few tablets of Montrose and Naprosyn for pain management. Departure - Departure Time of Disposition: 21:11 Disposition: Home, Self-Care 01 Condition: Good Clinical Impression: Dental abscess - Discharge Information *PRESCRIPTION DRUG MONITORING PROGRAM REVIEWED*: Yes *COPY OF PRESCRIPTION DRUG MONITORING REPORT IN PATIENT MANJIT: No Prescriptions: Amoxicillin 500 mg PO TID 10 Days #30 tab Naproxen [Naprosyn] 500 mg PO Q12HR #14 tab Acetaminophen/HYDROcodone [Montrose 325-5 MG] 1 tab PO Q6H PRN #6 tablet PRN Reason: Pain Instructions: Dental Abscess, [id number] Referrals: PCP,None [Primary Care Provider] - Forms: ED Department Discharge Additional Instructions: You have been evaluated in the ED for your dental pain. You have been provided with a script for amoxicillin. Please take this medication as directed. (1 tab TID for 10 days or until gone). Please note this antibiotic can take up to 48 hours to provide coverage. If you do not notice an improvement in the swelling within 3 days time I recommend you seek care for reevaluation for change in antibiotics. You were given a prescription for Naprosyn, Please take 1 tab every 12 hours for pain relief. You were given a prescription for a strong pain medication, hydrocodone/acetaminophen 5/325mg, please take 1 tab every 6 hours as needed for pain not relieved by naprosyn alone. Please note this medication does contain Tylenol in it, so do not take more than 4000 mg in a 24-hour time span. These medications can be addictive, so please take as few as possible to achieve adequate pain control. These meds can also be quite constipating, recommend that you increase your oral fluid intake and take a stool softener like MiraLAX while taking these medications. Do not drive while taking this medication. You may use hot pack/ ice packs to the affected area as tolerated in 15-20 minute intervals. You will ultimately need to find a dentist to provide definitive management of your dental pain. The [facility] in [place], [place], , is a clinic that has been known to take people that do not have dental insurance, and may provide payment plans. You might want to check with this provider, regarding your dental pain. Please return to the ED if your symptoms change or worsen. Sepsis Event Note (ED) - Evaluation Sepsis Screening Result: No Definite Risk - Focused Exam Vital Signs: Vital Signs Temp Pulse Resp BP Pulse Ox 07/16/20 20:51 97.8 F 75 18 139/67 99
== END 2020-07-16 21:22 | disposition home or self-care (01) ==
LOC: JD.ED 20:47
DX: K04.7 Periapical abscess without sinus (principal); Z88.1 Allergy status to other antibiotic agents; Z88.5 Allergy status to narcotic agent; Z91.040 Latex allergy status; Z91.048 Other nonmedicinal substance allergy status; Z91.018 Allergy to other foods
CPT/HCPCS: 99282; 99283

== ENCOUNTER 2020-12-18 18:00 | Emergency (ER) | payer SELFPAY ==
[2020-12-18 18:23] VITALS: BP 116/56; PULSE 68
--- NOTE | 2020-12-18 18:57 | EDM.PDOC ---
ED HPI GENERAL MEDICAL PROBLEM - General Chief Complaint: Back Pain or Injury Stated Complaint: BACK PAIN Time Seen by Provider: 12/18/20 18:26 Source of Information: Reports: Patient, RN Notes Reviewed History Limitations: Reports: No Limitations - History of Present Illness INITIAL COMMENTS - FREE TEXT/NARRATIVE: Patient is a 35-year-old female who presents to the ER for the evaluation of her mid and lower back pain. Patient has been having issues with this for quite some time, the pain starts in her mid back, just underneath her shoulder blades, and radiates to her front chest. States that this happens normally but it does go away after about 4 5 hours however this did not get better today. She took some ibuprofen this morning but she does not really like taking pain medication so she did not take another repeat dose. She states that the pain does seem to be radiating down her back as well. She is not on any chiropractor for management of her back pain. She is denying any sort of bowel or bladder incontinence, or any sort of saddle anesthesia, any numbness or tingling down her legs or other extremities. States that the pain does not seem to worsen when she takes a deep breath in. Patient denies any other sick-like symptoms, fever/chills, cough/shortness of breath, nausea/vomiting/diarrhea. Middle Back Pain Score (Numeric/FACES): 8 - Related Data Allergies Allergy/AdvReac Type Severity Reaction Status Date / Time clindamycin Allergy Severe Anaphylactic Verified 12/18/20 18:23 Shock codeine Allergy Severe Itching Verified 12/18/20 18:23 latex Allergy Severe Rash Verified 12/18/20 18:23 gluten AdvReac Severe Stomach Verified 12/18/20 18:23 Upset berries Allergy Severe Anaphylactic Uncoded 12/18/20 18:23 Shock Home Meds: Home Meds Non-Formulary Medication [NF Drug] 1 tab PO DAILY 12/18/20 [History] Orphenadrine [Norflex] 100 mg PO BEDTIME PRN #20 tab 12/18/20 [Rx] Past Medical History - Past Health History Medical/Surgical History: Denies Medical/Surgical History HEENT History: Reports: Allergic Rhinitis, Impaired Vision Other HEENT History: Dental problems--broken teeth, wears eyeglasses. Seasonal allergies. Respiratory History: Reports: Other (See Below) Other Respiratory History: allergies. 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 Neurological History: Reports: Migraines Psychiatric History: Reports: Anxiety Hematologic History: Reports: Anemia, Iron Deficiency Oncologic (Cancer) History: Reports: Other (See Below) Other Oncologic History: pre-cancerous cervical screens. - Infectious Disease History Infectious Disease History: Reports: Chicken Pox - Past Surgical History Female Surgical History: Reports: Section, Other (See Below) Other Female Surgeries/Procedures: ovarian cyst problems Social & Family History - Family History Family Medical History: No Pertinent Family History - Tobacco Use Tobacco Use Status *Q: Never Tobacco User - Caffeine Use Caffeine Use: Reports: Soda - Recreational Drug Use Recreational Drug Use: Yes Recreational Drug Type: Reports: Marijuana/Hashish - Living Situation & Occupation Living situation: Reports: , with Significant Other (Boyfriend), with Family (5 kids) Occupation: Employed ([employer]) ED ROS GENERAL - Review of Systems Review Of Systems: Comprehensive ROS is negative, except as noted in HPI. ED EXAM,LOWER BACK PAIN/INJURY - Physical Exam Exam: See Below Exam Limited By: No Limitations General Appearance: Alert, WD/WN, No Apparent Distress Respiratory/Chest: No Respiratory Distress, Lungs Clear, Normal Breath Sounds, No Accessory Muscle Use, Chest Non-Tender Cardiovascular: Normal Peripheral Pulses, Regular Rate, Rhythm, No Edema Back Exam: Normal Inspection, Muscle Spasm Extremities: Normal Inspection, Normal Range of Motion, Normal Capillary Refill Neurological: Alert, Normal Mood/Affect, Normal Dorsiflexion, Normal Plantar Flexion, No Motor/Sensory Deficits Psychiatric: Normal Affect, Normal Mood Skin Exam: Warm, Dry, Intact, Normal Color, No Rash Course - Vital Signs Last Recorded V/S: Last Vital Signs Temp 98.4 F 12/18/20 18:21 Pulse 68 12/18/20 18:21 Resp 16 12/18/20 18:21 BP 116/56 L 12/18/20 18:21 Pulse Ox 98 12/18/20 18:21 - Orders/Labs/Meds Orders: Active Orders 24 hr Category Date Time Status Lumbar Spine 2 or 3V [CR] Stat Exams 12/18/20 18:39 Ordered Thoracic Spine 2V [CR] Stat Exams 12/18/20 18:38 Ordered - Re-Assessments/Exams Free Text/Narrative Re-Assessment/Exam: 12/18/20 18:56 Patient presents to the ER for her back pain, she did not want any pain meds to be given in the ER. She is concerned about possible injury to the back however she has had no trauma to the area that she can account for. I have ordered thoracic spine x-rays and lumbar spine x-rays for further investigation. 12/18/20 19:36 X-rays were obtained and were reviewed by myself and Dr. Granda, there are no acute bony injury or other abnormality appreciated by himself or I. We will go ahead and discharge the patient home with general recommendations, and a prescription for muscle relaxers to see if this helps relieve some of the tension in her back. Departure - Departure Time of Disposition: 19:38 Disposition: Home, Self-Care 01 Condition: Good Clinical Impression: Back pain Qualifiers: Back pain location: low back pain Chronicity: acute Back pain laterality: midline Sciatica presence: without sciatica Qualified Code(s): M54.5 - Low back pain - Discharge Information *PRESCRIPTION DRUG MONITORING PROGRAM REVIEWED*: No *COPY OF PRESCRIPTION DRUG MONITORING REPORT IN PATIENT MANJIT: No Prescriptions: Orphenadrine [Norflex] 100 mg PO BEDTIME PRN #20 tab PRN Reason: Spasms Instructions: Chronic Back Pain, [id number] Referrals: PCP,None [Primary Care Provider] - Forms: ED Department Discharge, ED Return to Work/School Form Additional Instructions: You were evaluated in the ER today for your ongoing back pain. X-rays were obtained and demonstrate no acute fracture or other bony abnormalities that would be the cause of your back pain at today's visit. You have been given a prescription of muscle relaxers, you will need to take 1 tablet at bedtime as needed for muscle spasms. Please note these medications can make you somewhat drowsy, hence why you need to take these at bedtime. This medication was electronically sent to the [place] pharmacy located in the [place]. You may try chiropractor services to see if this helps relieve some of your back discomfort. Or continue to use massage therapy as warranted. Please return to the ER at any time if your symptoms should change or worsen. Sepsis Event Note (ED) - Evaluation Sepsis Screening Result: No Definite Risk - Focused Exam Vital Signs: Vital Signs Temp Pulse Resp BP Pulse Ox 12/18/20 18:21 98.4 F 68 16 116/56 L 98 - My Orders Last 24 Hours: My Active Orders 12/18/20 18:38 Thoracic Spine 2V [CR] Stat 12/18/20 18:39 Lumbar Spine 2 or 3V [CR] Stat - Assessment/Plan Last 24 Hours: My Active Orders 12/18/20 18:38 Thoracic Spine 2V [CR] Stat 12/18/20 18:39 Lumbar Spine 2 or 3V [CR] Stat
--- NOTE | 2020-12-18 20:39 | CR ---
Lumbar spine: AP and lateral views of the lumbar spine were obtained. Comparison: No previous lumbar spine imaging is available. Vertebral body heights and disc spaces are maintained. Very minimal scattered endplate osteophytes are seen. Pedicles are intact. Visualized transverse and spinous processes are intact. Sacroiliac joints appear within normal limits. Very minimal scoliosis is noted. No acute fracture or subluxation is seen. Impression: 1. Minimal degenerative change and minimal scoliosis. Diagnostic code #2
--- NOTE | 2020-12-18 20:41 | CR ---
Thoracic spine: AP and lateral views of the thoracic spine were obtained. Swimmer's view was also obtained. Comparison: No prior thoracic spine imaging is available. Very minimal scattered endplate osteophytes are seen within the thoracic spine. Mild scoliosis is noted. Pedicles are intact. No fracture or subluxation is seen. Impression: 1. Minimal degenerative change and very slight scoliosis. Diagnostic code #2
== END 2020-12-18 20:00 | disposition home or self-care (01) ==
LOC: JD.ED 18:00
DX: M54.5 Low back pain (principal); M54.6 Pain in thoracic spine; Z88.1 Allergy status to other antibiotic agents; Z88.5 Allergy status to narcotic agent; Z91.040 Latex allergy status; Z91.018 Allergy to other foods
CPT/HCPCS: 72070; 72070-26; 72100; 72100-26; 99283; 99283-25

== ENCOUNTER 2021-01-03 14:56 | Emergency (ER) | payer SELFPAY ==
--- NOTE | 2021-01-03 16:12 | EDM.PDOC ---
ED HPI GENERAL MEDICAL PROBLEM - General Chief Complaint: Abdominal Pain Stated Complaint: ABDOMINAL PAIN, RECTAL BLEEDING Time Seen by Provider: 01/03/21 15:47 Source of Information: Reports: Patient, RN Notes Reviewed History Limitations: Reports: No Limitations - History of Present Illness INITIAL COMMENTS - FREE TEXT/NARRATIVE: Patient is a 35-year-old female presenting to the emergency department with complaints of rectal bleeding this morning as well as dysuria which she states has been going on few days. She reports that upon waking this morning, she noticed bright red blood in her underpants and on the bed. She then went to work and states that the bleeding had stopped. It has not recurred. She does report some pain upon wiping. She has bilateral lower abdominal pain, which she states is chronic for her since having 3 C-sections. She has seen SENIOR ASSOCIATE and been told that this will improve over time. She has had an episode of previous rectal bleeding 3 years ago for which she had colonoscopy completed. This was found to be normal. She denies any fever, chills, nausea, or vomiting. Treatments PARKING ENFORCER: Reports: Other (see below) Other Treatments PARKING ENFORCER: none Left Abdomen Pain Score (Numeric/FACES): 8 - Related Data Allergies Allergy/AdvReac Type Severity Reaction Status Date / Time clindamycin Allergy Severe Anaphylactic Verified 12/18/20 18:23 Shock codeine Allergy Severe Itching Verified 12/18/20 18:23 latex Allergy Severe Rash Verified 12/18/20 18:23 gluten AdvReac Severe Stomach Verified 12/18/20 18:23 Upset berries Allergy Severe Anaphylactic Uncoded 12/18/20 18:23 Shock Home Meds: Home Meds Non-Formulary Medication [NF Drug] 1 tab PO DAILY 12/18/20 [History] Orphenadrine [Norflex] 100 mg PO BEDTIME PRN #20 tab 12/18/20 [Rx] Cefdinir 300 mg PO BID 5 Days #10 capsule 01/03/21 [Rx] Past Medical History - Past Health History Medical/Surgical History: Denies Medical/Surgical History HEENT History: Reports: Allergic Rhinitis, Impaired Vision Other HEENT History: Dental problems--broken teeth, wears eyeglasses. Seasonal allergies. Respiratory History: Reports: Other (See Below) Other Respiratory History: allergies. Gastrointestinal History: Reports: Chronic Diarrhea Other Gastrointestinal History: gluten intolerence Genitourinary History: Reports: UTI, Recurrent SENIOR ASSOCIATE History: Reports: Therapeutic Other SENIOR ASSOCIATE History: Has had 2 therapeutic abortions. Neurological History: Reports: Migraines Psychiatric History: Reports: Anxiety Hematologic History: Reports: Anemia, Iron Deficiency Oncologic (Cancer) History: Reports: Other (See Below) Other Oncologic History: pre-cancerous cervical screens. - Infectious Disease History Infectious Disease History: Reports: Chicken Pox - Past Surgical History GI Surgical History: Reports: Colonoscopy Female Surgical History: Reports: Section, Other (See Below) Other Female Surgeries/Procedures: ovarian cyst problems Neurological Surgical History: Reports: None Social & Family History - Family History Family Medical History: No Pertinent Family History - Tobacco Use Tobacco Use Status *Q: Never Tobacco User - Caffeine Use Caffeine Use: Reports: Soda - Recreational Drug Use Recreational Drug Type: Reports: Marijuana/Hashish - Living Situation & Occupation Living situation: Reports: , with Significant Other (Boyfriend), with Family (5 kids) Occupation: Employed ([employer]) ED ROS GENERAL - Review of Systems Review Of Systems: See Below Constitutional: Reports: No Symptoms. Denies: Fever HEENT: Reports: No Symptoms Respiratory: Reports: No Symptoms Cardiovascular: Reports: No Symptoms Endocrine: Reports: No Symptoms GI/Abdominal: Reports: Bloody Stool, Other (rectal pain). Denies: Abdominal Pain : Reports: Dysuria. Denies: Flank Pain Musculoskeletal: Reports: No Symptoms Skin: Reports: No Symptoms Neurological: Reports: No Symptoms Psychiatric: Reports: No Symptoms Hematologic/Lymphatic: Reports: No Symptoms Immunologic: Reports: No Symptoms ED EXAM, GI/ABD - Physical Exam Exam: See Below General Appearance: Alert, WD/WN, No Apparent Distress Respiratory/Chest: No Respiratory Distress, Lungs Clear, Normal Breath Sounds, No Accessory Muscle Use, Chest Non-Tender Cardiovascular: Normal Peripheral Pulses, Regular Rate, Rhythm, No Edema, No Gallop, No JVD, No Murmur, No Rub GI/Abdominal Exam: Normal Bowel Sounds, Soft, No Organomegaly, No Distention, No Abnormal Bruit, No Mass, Pelvis Stable, Tender (Mild bilateral lower abdominal) Rectal (Female) Exam: Hemorrhoids (Small ruptured hemorrhoid at the 6 o'clock position. Tender to palpation.), Tenderness Neurological: Alert, Oriented, CN II-XII Intact, Normal Cognition, Normal Gait, Normal Reflexes, No Motor/Sensory Deficits Psychiatric: Normal Affect, Normal Mood Skin Exam: Warm, Dry, Intact, Normal Color, No Rash Course - Vital Signs Last Recorded V/S: Last Vital Signs Temp 98.9 F 01/03/21 18:02 Pulse 73 01/03/21 18:02 Resp 16 01/03/21 18:02 BP 115/68 01/03/21 18:02 Pulse Ox 98 01/03/21 18:02 - Orders/Labs/Meds Labs: Laboratory Tests 01/03/21 01/03/21 01/03/21 Range/Units 16:05 16:05 16:05 WBC 6.71 (3.98-10.04) K/mm3 RBC 4.47 (3.98-5.22) M/mm3 Hgb 13.0 (11.2-15.7) gm/dl Hct 39.5 (34.1-44.9) % MCV 88.4 (79.4-94.8) fl MCH 29.1 (25.6-32.2) pg MCHC 32.9 (32.2-35.5) g/dl RDW Std Deviation 41.9 (36.4-46.3) fL Plt Count 258 D (182-369) K/mm3 MPV 9.9 (9.4-12.3) fl Neut % (Auto) 68.3 (34.0-71.1) % Lymph % (Auto) 18.5 L (19.3-51.7) % Early % (Auto) 11.8 (4.7-12.5) % Eos % (Auto) 1.0 (0.7-5.8) Baso % (Auto) 0.3 (0.1-1.2) % Neut # (Auto) 4.58 (1.56-6.13) K/mm3 Lymph # (Auto) 1.24 (1.18-3.74) K/mm3 Early # (Auto) 0.79 H (0.24-0.36) K/mm3 Eos # (Auto) 0.07 (0.04-0.36) K/mm3 Baso # (Auto) 0.02 (0.01-0.08) K/mm3 Sodium 140 (136-145) mEq/L Potassium 4.3 (3.5-5.1) mEq/L Chloride 105 (98-107) mEq/L Carbon Dioxide 26 (21-32) mEq/L Anion Gap 13.3 (5-15) BUN 6 L (7-18) mg/dL Creatinine 0.9 (0.55-1.02) mg/dL Est Cr Clr Drug Dosing 68.35 mL/min Estimated GFR (MDRD) > 60 (>60) mL/min BUN/Creatinine Ratio 6.7 L (14-18) Glucose 80 (70-99) mg/dL Calcium 8.7 (8.5-10.1) mg/dL Total Bilirubin 0.4 (0.2-1.0) mg/dL AST 11 L (15-37) U/L ALT 16 (14-59) U/L Alkaline Phosphatase 67 (46-116) U/L C-Reactive Protein 2.4 H* (<1.0) mg/dL Total Protein 6.8 (6.4-8.2) g/dl Albumin 3.4 (3.4-5.0) g/dl Globulin 3.4 gm/dL Albumin/Globulin Ratio 1.0 (1-2) Urine Color Yellow (Yellow) Urine Appearance Clear (Clear) Urine pH 6.5 (5.0-8.0) Ur Specific [place] 1.025 (1.005-1.030) Urine Protein Negative (Negative) Urine Glucose (UA) Negative (Negative) Urine Ketones Negative (Negative) Urine Occult Blood Negative (Negative) Urine Nitrite Negative (Negative) Urine Bilirubin Negative (Negative) Urine Urobilinogen 0.2 (0.2-1.0) Ur Leukocyte Esterase Trace H (Negative) Urine RBC 0-5 (0-5) /hpf Urine WBC 5-10 H (0-5) /hpf Ur Squamous Epith Cells 0-5 (0-5) /hpf Urine Bacteria Moderate H (FEW) /hpf Urine Mucus Moderate H (FEW) /hpf - Re-Assessments/Exams Free Text/Narrative Re-Assessment/Exam: Patient is a 35-year-old female presenting to the emergency department with complaints of rectal bleeding this morning which has resolved. She also has pain with wiping and dysuria. On exam, she does have a small, ruptured hemorrhoid at the 6 o'clock position. This area is tender to palpation. Disruption was likely the cause of her bleeding. She has had no further bleeding since this morning. I have ordered blood work and urinalysis. 01/03/21 17:33 Hematology is grossly unremarkable. Urinalysis does show signs of urinary tract infection. Patient states that she is unable to swallow capsules. I will start her on Omnicef for treatment of urinary tract infection. Urine has been sent for culture. Discharge instructions as documented. Departure - Departure Time of Disposition: 17:33 Disposition: Home, Self-Care 01 Condition: Good Clinical Impression: Bleeding hemorrhoid Urinary tract infection Qualifiers: Urinary tract infection type: site unspecified Hematuria presence: without hematuria Qualified Code(s): N39.0 - Urinary tract infection, site not specified - Discharge Information *PRESCRIPTION DRUG MONITORING PROGRAM REVIEWED*: No *COPY OF PRESCRIPTION DRUG MONITORING REPORT IN PATIENT MANJIT: No Prescriptions: Cefdinir 300 mg PO BID 5 Days #10 capsule Instructions: Hemorrhoids, [id number], Urinary Tract Infection, Adult Referrals: Simone Fierro MD [Primary Care Provider] - Forms: ED Department Discharge Additional Instructions: You were seen in the emergency department today for rectal bleeding this morning and urinary tract infection symptoms. Work-up included blood work and urinalysis. Results show that you do have urinary tract infection. You been started on Omnicef for treatment of this. Take this as prescribed. On exam, you do have a small hemorrhoid which appears to have ruptured which is likely the cause of your bleeding. If you should experience recurrence of bleeding or any other concerning symptoms, please not hesitate to return to the emergency department for reevaluation. Sepsis Event Note (ED) - Evaluation Sepsis Screening Result: No Definite Risk
[2021-01-03 18:06] VITALS: BP 115/68; PULSE 73
== END 2021-01-03 18:03 | disposition home or self-care (01) ==
LOC: JD.ED 14:56
DX: K64.5 Perianal venous thrombosis (principal); N39.0 Urinary tract infection, site not specified; Z88.5 Allergy status to narcotic agent; Z88.1 Allergy status to other antibiotic agents; Z91.040 Latex allergy status; Z91.018 Allergy to other foods
CPT/HCPCS: 36415; 80053; 81001; 85025; 86140; 99283; 99284

== ENCOUNTER 2021-05-19 16:45 | Emergency (ER) | payer MEDICAID ==
[2021-05-19 16:59] VITALS: BP 144/85; PULSE 86
[2021-05-19] MEDS ORDERED: Ondansetron 4 MG/2 ML SDV IVPUSH ONE (17:07)
[2021-05-19] MEDS ORDERED: Sodium Chloride 0.9% 10 ML Syringe FLUSH PRN (17:07)
[2021-05-19] MEDS ORDERED: Sodium Chloride 0.9% 1,000 ML IV SCH (17:15)
[2021-05-19] MEDS ORDERED: Pantoprazole 40 MG Vial IVPUSH ONE (17:31)
[2021-05-19] MEDS ORDERED: Alum Hydrox/Mag Hydrox/Simeth 30 ML, Lidocaine 2% 15 ML PO ONE ×2 (17:31)
--- NOTE | 2021-05-19 17:38 | EDM.PDOC ---
ED HPI GENERAL MEDICAL PROBLEM - General Chief Complaint: Gastrointestinal Problem Stated Complaint: VOMITING BLOOD Time Seen by Provider: 05/19/21 17:12 Source of Information: Reports: Patient, RN Notes Reviewed History Limitations: Reports: No Limitations - History of Present Illness INITIAL COMMENTS - FREE TEXT/NARRATIVE: Patient is a 35-year-old female who presents to the ER for her gastrointestinal symptoms. States for the last 48 hours she has had nausea and vomiting with associated diarrhea. She does state that her children were sick with a bug like this prior to her getting sick however they are better. She states that she became concerned today due to some blood she had in her vomit. She states seem to be streaks in nature, but was dark red. She states it was not a adam amount of blood that she was vomiting up. She does have some general abdomen discomfort/cramping sensations. Has had previous C-sections, and has some residual abdominal discomfort/pain due to the C-sections. She does note that sometimes when she gets ill or otherwise this seems to aggravate the pain, and the pain seems very similar to that nature at this moment. Does not radiate anywhere, is intermittent and does not seem to really be aggravated by anything other than being sick. No fevers but states she has been chilled, she has had the nausea and vomiting and diarrhea no cough or shortness of breath. States that she has called to the clinic to be seen by family practice provider and she is scheduled to see 1 however she cannot remember the name of this provider at this time. States that her children have Zofran at home but due to her chery allergy, she has not taken this. So she has not taken any sort of medication for nausea Abdomen Pain Score (Numeric/FACES): 5 - Related Data Allergies Allergy/AdvReac Type Severity Reaction Status Date / Time clindamycin Allergy Severe Anaphylactic Verified 05/19/21 17:00 Shock codeine Allergy Severe Itching Verified 05/19/21 17:00 latex Allergy Severe Rash Verified 05/19/21 17:00 gluten AdvReac Severe Stomach Verified 05/19/21 17:00 Upset berries Allergy Severe Anaphylactic Uncoded 05/19/21 17:00 Shock Home Meds: Home Meds Non-Formulary Medication [NF Drug] 1 tab PO DAILY 12/18/20 [History] Promethazine [Phenergan] 25 mg PO Q6H PRN #20 tab 12/09/21 [Rx] Sulfamethoxazole/Trimethoprim [Bactrim Ds Tablet] 1 tab PO BID 5 Days #10 tablet 05/19/21 [Rx] Past Medical History - Past Health History Medical/Surgical History: Denies Medical/Surgical History HEENT History: Reports: Allergic Rhinitis, Impaired Vision Other HEENT History: Dental problems--broken teeth, wears eyeglasses. Seasonal allergies. Respiratory History: Reports: Other (See Below) Other Respiratory History: allergies. Gastrointestinal History: Reports: Chronic Diarrhea Other Gastrointestinal History: gluten intolerence Genitourinary History: Reports: UTI, Recurrent SYSTEMS REQUIREMENTS PLANNER History: Reports: Therapeutic Other SYSTEMS REQUIREMENTS PLANNER History: Has had 2 therapeutic abortions. Neurological History: Reports: Migraines Psychiatric History: Reports: Anxiety Hematologic History: Reports: Anemia, Iron Deficiency Oncologic (Cancer) History: Reports: Other (See Below) Other Oncologic History: pre-cancerous cervical screens. - Infectious Disease History Infectious Disease History: Reports: Chicken Pox - Past Surgical History GI Surgical History: Reports: Colonoscopy Female Surgical History: Reports: Section, Other (See Below) Other Female Surgeries/Procedures: ovarian cyst problems Neurological Surgical History: Reports: None Social & Family History - Family History Family Medical History: No Pertinent Family History - Tobacco Use Tobacco Use Status *Q: Never Tobacco User - Caffeine Use Caffeine Use: Reports: Soda - Recreational Drug Use Recreational Drug Use: Yes Drug Use in Last 12 Months: Yes Recreational Drug Type: Reports: Marijuana/Hashish Recreational Drug Use Frequency: Rarely - Living Situation & Occupation Living situation: Reports: , with Significant Other (Boyfriend), with Family (5 kids) Occupation: Employed ([employer]) ED ROS GENERAL - Review of Systems Review Of Systems: Comprehensive ROS is negative, except as noted in HPI. ED EXAM, GI/ABD - Physical Exam Exam: See Below Exam Limited By: No Limitations General Appearance: Alert, WD/WN, No Apparent Distress Respiratory/Chest: No Respiratory Distress, Lungs Clear, Normal Breath Sounds, No Accessory Muscle Use, Chest Non-Tender Cardiovascular: Normal Peripheral Pulses, Regular Rate, Rhythm, No Edema GI/Abdominal Exam: Normal Bowel Sounds, Soft, No Distention, No Mass, Tender (LLQ abd pain) Extremities: Normal Inspection, Normal Capillary Refill Neurological: Alert, Oriented, Normal Cognition, No Motor/Sensory Deficits Psychiatric: Normal Affect, Normal Mood Skin Exam: Warm, Dry, Intact, Normal Color, No Rash Course - Vital Signs Last Recorded V/S: Last Vital Signs Temp 99.8 F 05/19/21 16:57 Pulse 86 05/19/21 16:57 Resp 16 05/19/21 16:57 BP 144/85 H 05/19/21 16:57 Pulse Ox 99 05/19/21 16:57 Orthostatic Blood Pressure [ 115/84 Standing] Orthostatic Blood Pressure [ 126/74 Supine] - Orders/Labs/Meds Orders: Active Orders 24 hr Category Date Time Status CULTURE URINE [MREF] Stat Lab 05/19/21 17:15 Received Peripheral IV Insertion Adult [OM.PC] Stat Oth 05/19/21 17:07 Ordered Labs: Laboratory Tests 05/19/21 05/19/21 05/19/21 Range/Units 17:07 17:15 17:15 WBC 7.92 (3.98-10.04) K/mm3 RBC 4.86 (3.98-5.22) M/mm3 Hgb 14.5 D (11.2-15.7) gm/dl Hct 43.3 (34.1-44.9) % MCV 89.1 (79.4-94.8) fl MCH 29.8 (25.6-32.2) pg MCHC 33.5 (32.2-35.5) g/dl RDW Std Deviation 41.9 (36.4-46.3) fL Plt Count 254 (182-369) K/mm3 MPV 10.3 (9.4-12.3) fl Neut % (Auto) 78.8 H (34.0-71.1) % Lymph % (Auto) 11.5 L (19.3-51.7) % [place] % (Auto) 8.3 (4.7-12.5) % Eos % (Auto) 1.0 (0.7-5.8) Baso % (Auto) 0.3 (0.1-1.2) % Neut # (Auto) 6.24 H (1.56-6.13) K/mm3 Lymph # (Auto) 0.91 L (1.18-3.74) K/mm3 [place] # (Auto) 0.66 H (0.24-0.36) K/mm3 Eos # (Auto) 0.08 (0.04-0.36) K/mm3 Baso # (Auto) 0.02 (0.01-0.08) K/mm3 Sodium 141 (136-145) mEq/L Potassium 3.8 (3.5-5.1) mEq/L Chloride 104 (98-107) mEq/L Carbon Dioxide 24 (21-32) mEq/L Anion Gap 16.8 H (5-15) BUN 9 (7-18) mg/dL Creatinine 0.8 (0.55-1.02) mg/dL Est Cr Clr Drug Dosing 79.54 mL/min Estimated GFR (MDRD) > 60 (>60) mL/min BUN/Creatinine Ratio 11.3 L (14-18) Glucose 83 (70-99) mg/dL Calcium 9.3 (8.5-10.1) mg/dL Total Bilirubin 0.6 (0.2-1.0) mg/dL AST 13 L (15-37) U/L ALT 20 (14-59) U/L Alkaline Phosphatase 64 (46-116) U/L C-Reactive Protein (<1.0) mg/dL Total Protein 6.9 (6.4-8.2) g/dl Albumin 3.7 (3.4-5.0) g/dl Globulin 3.2 gm/dL Albumin/Globulin Ratio 1.2 (1-2) HCG, Quant < 1.0 mIU/mL Urine Color Yellow (Yellow) Urine Appearance Slt cloudy H (Clear) Urine pH 5.5 (5.0-8.0) Ur Specific [place] > or = 1.030 (1.005-1.030) Urine Protein 1+ H (Negative) Urine Glucose (UA) Negative (Negative) Urine Ketones 3+ H (Negative) Urine Occult Blood Negative (Negative) Urine Nitrite Positive H (Negative) Urine Bilirubin Negative (Negative) Urine Urobilinogen 0.2 (0.2-1.0) Ur Leukocyte Esterase Negative (Negative) Urine RBC 0-5 (0-5) /hpf Urine WBC 5-10 H (0-5) /hpf Ur Squamous Epith Cells 0-5 (0-5) /hpf Urine Bacteria Many H (FEW) /hpf Urine Mucus Few (FEW) /hpf 05/19/21 Range/Units 17:15 WBC (3.98-10.04) K/mm3 RBC (3.98-5.22) M/mm3 Hgb (11.2-15.7) gm/dl Hct (34.1-44.9) % MCV (79.4-94.8) fl MCH (25.6-32.2) pg MCHC (32.2-35.5) g/dl RDW Std Deviation (36.4-46.3) fL Plt Count (182-369) K/mm3 MPV (9.4-12.3) fl Neut % (Auto) (34.0-71.1) % Lymph % (Auto) (19.3-51.7) % [place] % (Auto) (4.7-12.5) % Eos % (Auto) (0.7-5.8) Baso % (Auto) (0.1-1.2) % Neut # (Auto) (1.56-6.13) K/mm3 Lymph # (Auto) (1.18-3.74) K/mm3 [place] # (Auto) (0.24-0.36) K/mm3 Eos # (Auto) (0.04-0.36) K/mm3 Baso # (Auto) (0.01-0.08) K/mm3 Sodium (136-145) mEq/L Potassium (3.5-5.1) mEq/L Chloride (98-107) mEq/L Carbon Dioxide (21-32) mEq/L Anion Gap (5-15) BUN (7-18) mg/dL Creatinine (0.55-1.02) mg/dL Est Cr Clr Drug Dosing mL/min Estimated GFR (MDRD) (>60) mL/min BUN/Creatinine Ratio (14-18) Glucose (70-99) mg/dL Calcium (8.5-10.1) mg/dL Total Bilirubin (0.2-1.0) mg/dL AST (15-37) U/L ALT (14-59) U/L Alkaline Phosphatase (46-116) U/L C-Reactive Protein 0.2 (<1.0) mg/dL Total Protein (6.4-8.2) g/dl Albumin (3.4-5.0) g/dl Globulin gm/dL Albumin/Globulin Ratio (1-2) HCG, Quant mIU/mL Urine Color (Yellow) Urine Appearance (Clear) Urine pH (5.0-8.0) Ur Specific [place] (1.005-1.030) Urine Protein (Negative) Urine Glucose (UA) (Negative) Urine Ketones (Negative) Urine Occult Blood (Negative) Urine Nitrite (Negative) Urine Bilirubin (Negative) Urine Urobilinogen (0.2-1.0) Ur Leukocyte Esterase (Negative) Urine RBC (0-5) /hpf Urine WBC (0-5) /hpf Ur Squamous Epith Cells (0-5) /hpf Urine Bacteria (FEW) /hpf Urine Mucus (FEW) /hpf Meds: Medications Discontinued Medications Generic Name Dose Route Start Last Admin Trade Name Freq PRN Reason Stop Dose Admin Al Hydroxide/Mg Hydroxide 30 0 ml 05/19/21 17:31 05/19/21 19:35 ml/ Lidocaine HCl 15 ml PO 05/19/21 17:32 Not Given ONETIME ONE Dicyclomine HCl 20 mg 05/19/21 17:31 05/19/21 19:35 Dicyclomine 10 Mg Cap PO 05/19/21 17:32 Not Given ONETIME ONE Sodium Chloride 1,000 mls @ 999 mls/hr 05/19/21 17:15 05/19/21 17:23 Normal Saline IV 05/19/21 18:14 999 mls/hr Q1H MAXWELL Administration Ketorolac Tromethamine 30 mg 05/19/21 18:24 05/19/21 18:36 Ketorolac 30 Mg/Ml Sdv IVPUSH 05/19/21 18:25 30 mg ONETIME ONE Administration Ondansetron HCl 4 mg 05/19/21 17:07 05/19/21 17:23 Ondansetron 4 Mg/2 Ml Sdv IVPUSH 05/19/21 17:08 4 mg ONETIME ONE Administration Pantoprazole Sodium 40 mg 05/19/21 17:31 05/19/21 18:38 Pantoprazole 40 Mg Vial IVPUSH 05/19/21 17:32 40 mg ONETIME ONE Administration Sodium Chloride 10 ml 05/19/21 17:07 05/19/21 17:24 Sodium Chloride 0.9% 10 Ml Syringe FLUSH 10 ml ASDIRECTED PRN Administration Keep Vein Open - Re-Assessments/Exams Free Text/Narrative Re-Assessment/Exam: 05/19/21 17:35 Patient presents to the ER for her nausea vomiting and diarrhea and abdominal discomfort. I did offer to do a CT initially but she would declined this at this time and would like to see what the labs show. States that the pain seems to be on par for her " normal exacerbations ". Orders have been performed by triage nursing, she did receive an IV, IV Zofran a bag of fluids, CBC, CMP, hCG and a urinalysis for initial management. At the moment the pain seems to be controlled we will hold off on pain meds as well. I did also order CRP for ongoing management. Regarding the patient's bloody emesis, I do believe this could be due to the stress of her having vomited for the last 48 hours. I will go ahead and give her a dose of Protonix, GI cocktail and dicyclomine to see if this helps relieve some of the issues. 05/19/21 18:50 Initial laboratory evaluation is fairly unremarkable, patient's urinalysis is positive for UTI. Which could explain some of her low abdomen pain back pain. I did assess the patient and her nausea is much better. Patient still states that she has a allergy to berries so she would rather not have Zofran, so we will go ahead and try a different antinausea medication like Phenergan for outpatient management get her started on some antibiotics and have her follow-up in a few days if not much better. 05/19/21 20:23 Was made aware by [facility] that the patient has issues swallowing capsules and was requesting tablet medication so her antibiotic has been switched to Bactrim twice daily x5 days. Departure - Departure Time of Disposition: 19:16 Disposition: Home, Self-Care 01 Condition: Good Clinical Impression: Gastroenteritis UTI (urinary tract infection) Qualifiers: Urinary tract infection type: acute cystitis Hematuria presence: without hematuria Qualified Code(s): N30.00 - Acute cystitis without hematuria - Discharge Information *PRESCRIPTION DRUG MONITORING PROGRAM REVIEWED*: No *COPY OF PRESCRIPTION DRUG MONITORING REPORT IN PATIENT MANJIT: No Prescriptions: Cefdinir [Omnicef] 300 mg PO BID 5 Days #10 cap Promethazine [Phenergan] 25 mg PO Q6H PRN #20 tab PRN Reason: Nausea Instructions: Viral Gastroenteritis, Adult, [id number], Urinary Tract Infection, Adult, [id number] Referrals: PCP,None [Primary Care Provider] - Forms: ED Department Discharge Additional Instructions: You have been evaluated in the ED for nausea/vomiting and abdominal discomfort. Your urinalysis was consistent with an acute urinary tract infection. Your urine was sent for culture, and you will be notified if you should need a change in your antibiotic. This may take up to 48 hours to result. Your laboratory evaluation demonstrated no acute blood loss, to suggest anemia all other labs were unremarkable as well. It is likely that you are suffering from a viral gastroenteritis, and we do need to try to control the nausea and vomiting. You may take AZO for urinary pain relief. This is available over the counter, and can be attained at any retail store like [employer] or any pharmacy. Please be aware that this medication will make your urine turn orange. You should only use this medication for a time period not longer than 72 hours. You have been given a prescription for Omnicef (cefdinir), 300 mg 1 tablet 2 times a day for 5 days. Please note that the antibiotics can take up to 48 ho urs to start working. You were given a prescription for nausea medications you may take 1 tablet every 6 hours as needed for ongoing nausea management. Please note this medication can make you somewhat sleepy; I would caution use of this during the day if possible. This medication was electronically sent to the [facility] located in the [employer] store. Please increase your oral fluid intake and try to stay adequately hydrated. Please return to the ED if your symptoms change or worsen. Sepsis Event Note (ED) - Evaluation Sepsis Screening Result: No Definite Risk - Focused Exam Vital Signs: Vital Signs Temp Pulse Resp BP Pulse Ox 05/19/21 16:57 99.8 F 86 16 144/85 H 99 - My Orders Last 24 Hours: My Active Orders 05/19/21 17:07 Peripheral IV Insertion Adult [OM.PC] Stat 05/19/21 17:15 CULTURE URINE [MREF] Stat - Assessment/Plan Last 24 Hours: My Active Orders 05/19/21 17:07 Peripheral IV Insertion Adult [OM.PC] Stat 05/19/21 17:15 CULTURE URINE [MREF] Stat
[2021-05-19] MEDS ORDERED: Ketorolac 30 MG/ML SDV IVPUSH ONE (18:24)
[2021-05-19] MEDS: Dicyclomine 10 MG Cap PO ONE ×2 (18:40→19:35)
== END 2021-05-19 19:35 | disposition home or self-care (01) ==
LOC: JD.ED 16:45
DX: N30.00 Acute cystitis without hematuria (principal); K52.9 Noninfective gastroenteritis and colitis, unspecified; Z88.5 Allergy status to narcotic agent; Z91.018 Allergy to other foods; Z88.1 Allergy status to other antibiotic agents; Z91.040 Latex allergy status; Z79.899 Other long term (current) drug therapy
CPT/HCPCS: 36415; 80053; 81001; 84702; 85025; 86140; 87086; 87088; 87186; 96374; 96375; 99284; C9113; J1885; J2405; J7030; A9270-GY

== ENCOUNTER 2021-06-24 13:58 | Emergency (ER) | payer MEDICAID ==
[2021-06-24 14:14] VITALS: BP 142/48; PULSE 72
[2021-06-24] MEDS ORDERED: Sodium Chloride 0.9% 1,000 ML IV ONE (14:50)
[2021-06-24] MEDS ORDERED: LORazepam 2 MG/ML SDV IVPUSH STA (14:50)
[2021-06-24] MEDS ORDERED: Ondansetron 4 MG/2 ML SDV IVPUSH ONE (14:50)
[2021-06-24] MEDS ORDERED: Famotidine 20 MG/2 ML SDV IVPUSH STA (14:51)
== END 2021-06-24 17:15 | disposition home or self-care (01) ==
LOC: JD.ED 13:58
DX: F43.9 Reaction to severe stress, unspecified (principal); R11.2 Nausea with vomiting, unspecified; Z88.1 Allergy status to other antibiotic agents; Z88.5 Allergy status to narcotic agent; Z91.040 Latex allergy status; Z91.018 Allergy to other foods
CPT/HCPCS: 36415; 80053; 81001; 81025; 83735; 85025; 96361; 96374; 96375; 99284; J2405; J3490; J7030

== ENCOUNTER 2021-11-08 21:43 | Emergency (ER) | payer MEDICAID, OTHER ==
[2021-11-08 22:27] VITALS: BP 119/65; PULSE 63
[2021-11-08] MEDS ORDERED: Ondansetron 4 MG/2 ML SDV IVPUSH ONE (22:40)
[2021-11-08] MEDS ORDERED: Sodium Chloride 0.9% 10 ML Syringe FLUSH PRN (22:40)
[2021-11-08] MEDS ORDERED: HYDROmorphone 1 MG/ML Syringe IVPUSH ONE (22:42)
[2021-11-08] MEDS ORDERED: Sodium Chloride 0.9% 1,000 ML IV SCH (22:45)
[2021-11-08 23:38] LABS: ESTIMATED GFR > 60 mL/min (>60)
== END 2021-11-09 00:45 | disposition home or self-care (01) ==
LOC: JD.ED 21:43
DX: R10.30 Lower abdominal pain, unspecified (principal); R11.0 Nausea; Z88.1 Allergy status to other antibiotic agents; Z88.5 Allergy status to narcotic agent; Z91.040 Latex allergy status; Z91.018 Allergy to other foods
CPT/HCPCS: 36415; 80053; 81001; 83690; 84703; 85025; 86140; 96374; 96375; 99284; J1170; J2405; J3490; J7030

== ENCOUNTER 2021-12-06 08:50 | Day surgery (SDC) | payer MEDICAID ==
[~2021-12-06 08:50] MED LIST changes: -Citric Acid/Sodium Citrate Solution 30 ML Cup PO ONE; +Lactated Ringers 1,000 ML IV SCH; +Lidocaine 1%/Sod Bicarbonate in NS 8.4% 1 ML Syringe IDERM PRN; -Metoclopramide 10 MG/2 ML SDV IVPUSH ONE; -Nalbuphine 20 MG/ML 1 ML Syringe IVPUSH PRN; -Oxytocin/Lactated Ringers 10 UNIT/1,000 ML BAG IV SCH; +Sodium Chloride 0.9% 10 ML Syringe FLUSH SCH; -ceFAZolin 2 GM in Premix Bag 1 BAG IV ONE
[2021-12-06] MEDS ORDERED: Bupivacaine 0.5%/EPINEPHrine 1:200,000 50 ML MDV ONE (09:17)
[2021-12-06] MEDS ORDERED: Rocuronium 50 MG/5 ML Vial ONE (09:40)
[2021-12-06] MEDS ORDERED: fentaNYL 250 MCG/5 ML SDV ONE (09:40)
[2021-12-06] MEDS ORDERED: Propofol 200 MG/20 ML SDV ONE (09:40)
[2021-12-06] MEDS ORDERED: Midazolam 1 MG/ML 2 ML SDV ONE (09:40)
[2021-12-06] MEDS ORDERED: Ondansetron 4 MG/2 ML SDV ONE (09:40)
[2021-12-06] MEDS ORDERED: Lidocaine 1% 4 ML ONE (09:41)
[2021-12-06] MEDS ORDERED: ceFAZolin 2 GM Vial ONE (09:41)
[2021-12-06] MEDS ORDERED: Dexamethasone 4 MG/ML SDV ONE (09:41)
[2021-12-06] MEDS ORDERED: Neostigmine Methylsulfate 10 MG/10 ML MDV ONE (10:54)
[2021-12-06] MEDS ORDERED: diphenhydrAMINE 50 MG/ML SDV ONE (10:55)
[2021-12-06] MEDS ORDERED: Ketorolac 15 MG/ML SDV ONE (10:55)
[2021-12-06] MEDS ORDERED: Lactated Ringers 1,000 ML ONE (11:43)
[2021-12-06] MEDS ORDERED: Ondansetron 4 MG/2 ML SDV IVPUSH PRN (11:45)
[2021-12-06] MEDS ORDERED: HYDROmorphone 0.5 MG/0.5 ML Syringe IVPUSH PRN (11:45)
[2021-12-06] MEDS ORDERED: fentaNYL 100 MCG/2 ML SDV IVPUSH PRN (11:45)
[2021-12-06] MEDS ORDERED: Midazolam 1 MG/ML 2 ML SDV IVPUSH PRN (12:11)
[2021-12-06] MEDS ORDERED: oxyCODONE 5 MG Tab PO ONE (13:26)
[2021-12-06] MEDS ORDERED: Acetaminophen 325 MG Tab PO ONE (14:00)
[2021-12-06 18:25] VITALS: BP 103/60; PULSE 64
== END 2021-12-06 15:05 | disposition home or self-care (01) ==
LOC: JD.SDS 08:50
PROVIDERS: ATTEND Surgery
DX: K42.9 Umbilical hernia without obstruction or gangrene (principal); N73.6 Female pelvic peritoneal adhesions (postinfective); E55.9 Vitamin D deficiency, unspecified; G43.909 Migraine, unspecified, not intractable, without status migrainosus; H54.7 Unspecified visual loss; F32.A Depression, unspecified; F41.9 Anxiety disorder, unspecified; Z88.5 Allergy status to narcotic agent; Z91.040 Latex allergy status; Z91.018 Allergy to other foods
CPT/HCPCS: 49652; 81025; A9270; J1100; J1200; J1885; J2250; J2405; J2704; J2710; J3010; J3490; J7120; 00840; J0690

== ENCOUNTER 2021-12-08 15:26 | Emergency (ER) | payer MEDICAID ==
[2021-12-08 16:07] VITALS: BP 123/61; PULSE 83
[2021-12-08] MEDS ORDERED: HYDROmorphone 0.5 MG/0.5 ML Syringe IVPUSH ONE (16:20)
[2021-12-08] MEDS ORDERED: Ondansetron 4 MG/2 ML SDV IVPUSH ONE (16:20)
[2021-12-08] MEDS ORDERED: Sodium Chloride 0.9% 1,000 ML IV STA (16:20)
[2021-12-08] MEDS ORDERED: Sodium Chloride 0.9% 10 ML Syringe FLUSH PRN (16:20)
[2021-12-08] MEDS ORDERED: diphenhydrAMINE 50 MG/ML SDV IVPUSH ONE (16:21)
[2021-12-08] MEDS ORDERED: Cefdinir 300 MG Cap PO ONE (17:41)
[2021-12-08] MEDS ORDERED: Acetaminophen/HYDROcodone 325-5 MG Tab PO ONE (17:42)
== END 2021-12-08 18:12 | disposition home or self-care (01) ==
LOC: JD.ED 15:26
DX: G89.18 Other acute postprocedural pain (principal); N39.0 Urinary tract infection, site not specified; Z88.1 Allergy status to other antibiotic agents; Z91.040 Latex allergy status; Z88.5 Allergy status to narcotic agent; Z91.018 Allergy to other foods
CPT/HCPCS: 36415; 80053; 81001; 85025; 86140; 87086; 96361; 96374; 96375; 99284; A9270; J1170; J1200; J2405; J3490; J7030

== ENCOUNTER 2022-02-25 15:07 | Emergency (ER) | payer MEDICAID, OTHER | END 2022-02-25 15:57 | LOC: JD.ED 15:07 | DX: Z53.21 Procedure and treatment not carried out due to patient leaving prior to being seen by health care provider (principal) ==

== ENCOUNTER 2022-08-05 18:59 | Emergency (ER) | payer MEDICAID ==
[2022-08-05 19:13] VITALS: BP 162/80; PULSE 99
[2022-08-05] MEDS ORDERED: Famotidine 20 MG/2 ML SDV IVPUSH ONE (19:15)
[2022-08-05] MEDS ORDERED: diphenhydrAMINE 50 MG/ML SDV IVPUSH ONE (19:15)
== END 2022-08-05 20:50 | disposition home or self-care (01) ==
LOC: JD.ED 18:59
DX: T78.40XA Allergy, unspecified, initial encounter (principal); Z88.1 Allergy status to other antibiotic agents; Z91.040 Latex allergy status; Z88.5 Allergy status to narcotic agent; Z91.018 Allergy to other foods
CPT/HCPCS: 96374; 96375; 99283; J1200; J3490; 99282

== ENCOUNTER 2023-01-13 17:35 | Emergency (ER) | payer MEDICAID ==
[2023-01-13] MEDS ORDERED: Ondansetron 4 MG Tab.DIS PO ONE (17:57)
[2023-01-13] MEDS ORDERED: Famotidine 20 MG Tab PO ONE (17:58)
[2023-01-13] MEDS ORDERED: predniSONE 10 MG Tab PO ONE (17:58)
[2023-01-13 19:26] VITALS: BP 102/61; PULSE 64
== END 2023-01-13 19:23 | disposition home or self-care (01) ==
LOC: JD.ED 17:35
DX: T78.40XA Allergy, unspecified, initial encounter (principal); Z88.1 Allergy status to other antibiotic agents; Z91.040 Latex allergy status; Z88.5 Allergy status to narcotic agent; Z91.018 Allergy to other foods
CPT/HCPCS: 99283; A9270; J7512

== ENCOUNTER 2023-05-04 19:24 | Emergency (ER) | payer MEDICAID ==
[2023-05-04] MEDS ORDERED: methylPREDNISolone Sodium Succinate 125 MG/2 ML SDV IVPUSH ONE (19:33)
[2023-05-04] MEDS ORDERED: Sodium Chloride 0.9% 10 ML Syringe FLUSH PRN (19:33)
[2023-05-04 19:34] VITALS: BP 125/67; PULSE 79
[2023-05-04] MEDS ORDERED: diphenhydrAMINE 50 MG/ML SDV IVPUSH ONE (19:34)
[2023-05-04] MEDS ORDERED: Famotidine 20 MG/2 ML SDV IVPUSH ONE (19:34)
== END 2023-05-04 21:19 | disposition home or self-care (01) ==
LOC: JD.ED 19:24
DX: T78.40XA Allergy, unspecified, initial encounter (principal); Z91.040 Latex allergy status; Z88.8 Allergy status to other drugs, medicaments and biological substances; Z91.048 Other nonmedicinal substance allergy status; Z91.018 Allergy to other foods; Z79.899 Other long term (current) drug therapy
CPT/HCPCS: 96374; 96375; 99284-25; J1200; J2930; J3490

== ENCOUNTER 2023-05-22 22:12 | Emergency (ER) | payer MEDICAID ==
[2023-05-22] MEDS ORDERED: Sodium Chloride 0.9% 10 ML Syringe FLUSH PRN (22:35)
[2023-05-22] MEDS ORDERED: Sodium Chloride 0.9% 1,000 ML IV SCH (22:45)
[2023-05-22 22:58] LABS: BASOPHILS ABSOLUTE AUTO 0.1 K/mm3 (0.0-0.2); BASOPHILS PERCENT AUTO 0.5 % (0.0-1.0); EOSINOPHILS ABSOLUTE AUTO 0.2 K/mm3 (0.0-0.4); EOSINOPHILS PERCENT AUTO 1.9 % (0.0-6.0); HEMATOCRIT 38.5 % (37.0-47.0); HEMOGLOBIN 12.9 gm/dl (12.0-16.0); IMMATURE GRAN ABSOLUTE AUTO 0.04 K/mm3 (0.00-0.05); IMMATURE GRAN PERCENT AUTO 0.4 % (0.0-0.4); LYMPHOCYTES ABSOLUTE AUTO 2.4 K/mm3 (1.0-4.8); LYMPHOCYTES PERCENT AUTO 22.7 % (24.0-44.0); MEAN CORPUSCULAR HEMOGLOBIN 29.4 pg (28.0-32.0); MEAN CORPUSCULAR HGB CONC 33.5 g/dl (32.0-36.0); MEAN CORPUSCULAR VOLUME 87.7 fl (83.0-99.0); MEAN PLATELET VOLUME 9.7 fl (9.4-12.3); MONOCYTES ABSOLUTE AUTO 0.7 K/mm3 (0.0-0.8); MONOCYTES PERCENT AUTO 6.8 % (0.0-8.0); NEUTROPHILS ABSOLUTE AUTO 7.2 K/mm3 (1.8-7.7); NEUTROPHILS PERCENT AUTO 67.7 % (41.0-71.0); PLATELET COUNT,PLT 213 K/mm3 (150-400); RED BLOOD CELL COUNT 4.39 M/mm3 (4.10-5.30); WHITE BLOOD CELL COUNT,WBC 10.68 K/mm3 (3.9-11.3)
[2023-05-22 22:59] LABS: APPEARANCE,URINE CLEAR (Clear); BILIRUBIN,URINE NEGATIVE (Negative); COLOR,URINE YELLOW (Yellow); GLUCOSE,URINE TRACE (Negative); KETONES,URINE NEGATIVE (Negative); LEUKOCYTE ESTERASE,URINE 2+ (Negative); NITRITE,URINE NEGATIVE (Negative); OCCULT BLOOD,URINE TRACE-LYSED (Negative); PROTEIN,URINE NEGATIVE (Negative); UROBILINOGEN,URINE 0.2 (0.2-1.0)
[2023-05-22 23:11] LABS: BACTERIA,URINE MODERATE /hpf (FEW); EPITHELIAL CELLS,URINE 0-5 /hpf (0-5); MUCUS,URINE RARE /hpf (FEW); RBC,URINE 0-5 /hpf (0-5); WBC CLUMPS,URINE RARE /hpf (NOT SEEN)
[2023-05-22 23:32] LABS: A/G RATIO 1.2 (1-2); ALBUMIN 3.7 g/dl (3.4-5.0); ANION GAP 11.3 (5-15); BILIRUBIN TOTAL 0.4 mg/dL (0.2-1.0); BUN/CREATININE RATIO 11.3 (14-18); C-REACTIVE PROTEIN 1.1 mg/dL (<1.0); CALCIUM 8.9 mg/dL (8.5-10.1); CREATININE 0.8 mg/dL (0.55-1.02); EST CRCL DRUG DOSING (CG) 75.41 mL/min; POTASSIUM,K 3.3 mEq/L (3.5-5.1); PROTEIN TOTAL,TP 6.8 g/dl (6.4-8.2)
[2023-05-22] MEDS ORDERED: cefTRIAXone 1 GM in Sodium Chloride 0.9% 100 ML IV ONE (23:39)
[2023-05-23 01:38] VITALS: BP 110/54; PULSE 65
== END 2023-05-23 01:10 | disposition home or self-care (01) ==
LOC: JD.ED 22:12
DX: N39.0 Urinary tract infection, site not specified (principal); K21.9 Gastro-esophageal reflux disease without esophagitis; Z79.899 Other long term (current) drug therapy; Z88.1 Allergy status to other antibiotic agents; Z88.5 Allergy status to narcotic agent; Z91.040 Latex allergy status; Z91.018 Allergy to other foods
CPT/HCPCS: 36415; 80053; 81001; 84703; 85025; 86140; 87086; 87088; 87186; 96365; 99284; J0696; J3490; J7030; 99283

== ENCOUNTER 2023-08-01 21:04 | Emergency (ER) | payer MEDICAID ==
[2023-08-01 21:25] VITALS: BP 119/72; PULSE 69
[2023-08-01] MEDS ORDERED: Ketorolac 30 MG/ML SDV ONE (22:06)
[2023-08-01 22:10] LABS: BASOPHILS ABSOLUTE AUTO 0.1 K/mm3 (0.0-0.2); BASOPHILS PERCENT AUTO 0.6 % (0.0-1.0); EOSINOPHILS ABSOLUTE AUTO 0.2 K/mm3 (0.0-0.4); EOSINOPHILS PERCENT AUTO 2.2 % (0.0-6.0); HEMATOCRIT 40.3 % (37.0-47.0); HEMOGLOBIN 13.4 gm/dl (12.0-16.0); IMMATURE GRAN ABSOLUTE AUTO 0.02 K/mm3 (0.00-0.05); IMMATURE GRAN PERCENT AUTO 0.2 % (0.0-0.4); LYMPHOCYTES PERCENT AUTO 31.5 % (24.0-44.0); MEAN CORPUSCULAR HEMOGLOBIN 29.1 pg (28.0-32.0); MEAN CORPUSCULAR HGB CONC 33.3 g/dl (32.0-36.0); MEAN CORPUSCULAR VOLUME 87.6 fl (83.0-99.0); MEAN PLATELET VOLUME 9.2 fl (9.4-12.3); MONOCYTES ABSOLUTE AUTO 0.6 K/mm3 (0.0-0.8); MONOCYTES PERCENT AUTO 6.2 % (0.0-8.0); NEUTROPHILS ABSOLUTE AUTO 5.6 K/mm3 (1.8-7.7); NEUTROPHILS PERCENT AUTO 59.3 % (41.0-71.0); PLATELET COUNT,PLT 258 K/mm3 (150-400); WHITE BLOOD CELL COUNT,WBC 9.41 K/mm3 (3.9-11.3)
[2023-08-01] MEDS: Ketorolac 30 MG/ML SDV IVPUSH ONE (22:13)
[2023-08-01] MEDS: Sodium Chloride 0.9% 10 ML Syringe FLUSH PRN (22:14)
[2023-08-01] MEDS: Iopamidol 612 MG/ML 100 ML Bottle IVPUSH ONE (22:16)
[2023-08-01 22:27] LABS: APPEARANCE,URINE CLEAR (Clear); BILIRUBIN,URINE NEGATIVE (Negative); COLOR,URINE LIGHT YELLOW (Yellow); GLUCOSE,URINE NEGATIVE (Negative); KETONES,URINE NEGATIVE (Negative); LEUKOCYTE ESTERASE,URINE NEGATIVE (Negative); NITRITE,URINE NEGATIVE (Negative); OCCULT BLOOD,URINE NEGATIVE (Negative); PROTEIN,URINE NEGATIVE (Negative); UROBILINOGEN,URINE 0.2 (0.2-1.0)
[2023-08-01 22:33] LABS: BACTERIA,URINE RARE /hpf (FEW); EPITHELIAL CELLS,URINE 0-5 /hpf (0-5); MUCUS,URINE NOT SEEN /hpf (FEW); RBC,URINE 0-5 /hpf (0-5); WBC,URINE 0-5 /hpf (0-5)
[2023-08-01 22:36] LABS: A/G RATIO 1.4 (1-2); ALBUMIN 4.1 g/dl (3.4-5.0); ANION GAP 12.8 (5-15); BILIRUBIN TOTAL 0.3 mg/dL (0.2-1.0); BUN/CREATININE RATIO 12.5 (14-18); CALCIUM 9.3 mg/dL (8.5-10.1); CREATININE 0.8 mg/dL (0.55-1.02); EST CRCL DRUG DOSING (CG) 75.41 mL/min; MAGNESIUM 1.8 mg/dL (1.8-2.4); POTASSIUM,K 3.8 mEq/L (3.5-5.1); PROTEIN TOTAL,TP 7.1 g/dl (6.4-8.2)
== END 2023-08-01 22:32 | disposition home or self-care (01) ==
LOC: JD.ED 21:04
DX: R10.33 Periumbilical pain (principal); Z91.018 Allergy to other foods; Z91.040 Latex allergy status; Z88.8 Allergy status to other drugs, medicaments and biological substances; Z79.899 Other long term (current) drug therapy
CPT/HCPCS: 36415; 74177; 80053; 81001; 83735; 85025; 96374; 99284; J1885; J3490; Q9967

== ENCOUNTER 2023-10-12 18:35 | Emergency (ER) | payer MEDICAID ==
[2023-10-12] MEDS: Sodium Chloride 0.9% 10 ML Syringe FLUSH PRN (18:55)
[2023-10-12 19:16] LABS: BASOPHILS ABSOLUTE AUTO 0.1 K/mm3 (0.0-0.2); BASOPHILS PERCENT AUTO 0.9 % (0.0-1.0); EOSINOPHILS ABSOLUTE AUTO 0.3 K/mm3 (0.0-0.4); EOSINOPHILS PERCENT AUTO 4.9 % (0.0-6.0); HEMOGLOBIN 13.8 gm/dl (12.0-16.0); IMMATURE GRAN ABSOLUTE AUTO 0.01 K/mm3 (0.00-0.05); IMMATURE GRAN PERCENT AUTO 0.1 % (0.0-0.4); LYMPHOCYTES ABSOLUTE AUTO 2.8 K/mm3 (1.0-4.8); LYMPHOCYTES PERCENT AUTO 40.6 % (24.0-44.0); MEAN CORPUSCULAR HEMOGLOBIN 29.2 pg (28.0-32.0); MEAN CORPUSCULAR HGB CONC 33.7 g/dl (32.0-36.0); MEAN CORPUSCULAR VOLUME 86.7 fl (83.0-99.0); MEAN PLATELET VOLUME 9.5 fl (9.4-12.3); MONOCYTES ABSOLUTE AUTO 0.7 K/mm3 (0.0-0.8); MONOCYTES PERCENT AUTO 9.6 % (0.0-8.0); NEUTROPHILS PERCENT AUTO 43.9 % (41.0-71.0); PLATELET COUNT,PLT 257 K/mm3 (150-400); RED BLOOD CELL COUNT 4.73 M/mm3 (4.10-5.30)
[2023-10-12] MEDS: Aspirin 81 MG Tab.Chew PO ONE (19:18)
[2023-10-12 19:34] LABS: A/G RATIO 1.7 (1-2); ALBUMIN 4.3 g/dl (3.4-5.0); ANION GAP 14.7 (5-15); BILIRUBIN TOTAL 0.5 mg/dL (0.2-1.0); BUN/CREATININE RATIO 12.5 (14-18); CALCIUM 8.9 mg/dL (8.5-10.1); CREATININE 0.8 mg/dL (0.55-1.02); EST CRCL DRUG DOSING (CG) 81.93 mL/min; POTASSIUM,K 3.7 mEq/L (3.5-5.1); PROTEIN TOTAL,TP 6.8 g/dl (6.4-8.2)
[2023-10-12 22:53] VITALS: BP 113/63; PULSE 75
== END 2023-10-12 22:25 | disposition home or self-care (01) ==
LOC: JD.ED 18:35
DX: R07.89 Other chest pain (principal); Z88.1 Allergy status to other antibiotic agents; Z91.040 Latex allergy status; Z91.018 Allergy to other foods; Z88.8 Allergy status to other drugs, medicaments and biological substances; Z79.899 Other long term (current) drug therapy
CPT/HCPCS: 36415; 71046; 80053; 84484; 84703; 85025; 85379; 93005; 99285; A9270; J3490; 93010; 99284

== ENCOUNTER 2024-01-11 15:17 | Emergency (ER) | payer MEDICAID ==
[2024-01-11] MEDS: Sodium Chloride 0.9% 10 ML Syringe FLUSH PRN (16:51)
[2024-01-11 16:56] LABS: BASOPHILS ABSOLUTE AUTO 0.1 K/mm3 (0.0-0.2); BASOPHILS PERCENT AUTO 0.7 % (0.0-1.0); EOSINOPHILS ABSOLUTE AUTO 0.3 K/mm3 (0.0-0.4); HEMATOCRIT 38.4 % (37.0-47.0); HEMOGLOBIN 12.8 gm/dl (12.0-16.0); IMMATURE GRAN ABSOLUTE AUTO 0.01 K/mm3 (0.00-0.05); IMMATURE GRAN PERCENT AUTO 0.1 % (0.0-0.4); LYMPHOCYTES ABSOLUTE AUTO 2.2 K/mm3 (1.0-4.8); LYMPHOCYTES PERCENT AUTO 33.5 % (24.0-44.0); MEAN CORPUSCULAR HEMOGLOBIN 29.6 pg (28.0-32.0); MEAN CORPUSCULAR HGB CONC 33.3 g/dl (32.0-36.0); MEAN CORPUSCULAR VOLUME 88.7 fl (83.0-99.0); MEAN PLATELET VOLUME 9.4 fl (9.4-12.3); MONOCYTES ABSOLUTE AUTO 0.6 K/mm3 (0.0-0.8); MONOCYTES PERCENT AUTO 9.6 % (0.0-8.0); NEUTROPHILS ABSOLUTE AUTO 3.5 K/mm3 (1.8-7.7); NEUTROPHILS PERCENT AUTO 52.1 % (41.0-71.0); PLATELET COUNT,PLT 238 K/mm3 (150-400); RED BLOOD CELL COUNT 4.33 M/mm3 (4.10-5.30); WHITE BLOOD CELL COUNT,WBC 6.69 K/mm3 (3.9-11.3)
[2024-01-11] MEDS: Ketorolac 15 MG/ML SDV IVPUSH ONE (17:06)
[2024-01-11 17:24] LABS: A/G RATIO 1.4 (1-2); ALBUMIN 3.7 g/dl (3.4-5.0); ANION GAP 7.8 (5-15); BILIRUBIN TOTAL 0.4 mg/dL (0.2-1.0); BUN/CREATININE RATIO 14.3 (14-18); CALCIUM 8.9 mg/dL (8.5-10.1); CREATININE 0.7 mg/dL (0.55-1.02); EST CRCL DRUG DOSING (CG) 89.26 mL/min; POTASSIUM,K 3.8 mEq/L (3.5-5.1); PROTEIN TOTAL,TP 6.3 g/dl (6.4-8.2)
[2024-01-11 18:13] VITALS: BP 101/58; PULSE 64
== END 2024-01-11 18:19 | disposition home or self-care (01) ==
LOC: JD.ED 15:17
DX: M54.6 Pain in thoracic spine (principal); Z88.1 Allergy status to other antibiotic agents; Z91.040 Latex allergy status; Z91.018 Allergy to other foods; Z88.5 Allergy status to narcotic agent; Z79.899 Other long term (current) drug therapy
CPT/HCPCS: 36415; 71045; 80053; 84484; 84703; 85025; 93005; 96374; 99285; J1885; J3490

== ENCOUNTER 2024-02-09 15:46 | Emergency (ER) | payer MEDICAID ==
[2024-02-09] MEDS: diphenhydrAMINE 50 MG/ML SDV IVPUSH ONE (16:12)
[2024-02-09] MEDS: Famotidine 20 MG/2 ML SDV IVPUSH ONE (16:16)
[2024-02-09] MEDS: methylPREDNISolone Sodium Succinate 125 MG/2 ML SDV IVPUSH ONE (16:20)
[2024-02-09] MEDS: Sodium Chloride 0.9% 1,000 ML IV SCH (16:37)
[2024-02-09 18:22] VITALS: BP 120/68; PULSE 66
== END 2024-02-09 18:00 | disposition home or self-care (01) ==
LOC: JD.ED 15:46
DX: L50.0 Allergic urticaria (principal); T78.1XXA Other adverse food reactions, not elsewhere classified, initial encounter; Z88.1 Allergy status to other antibiotic agents; Z91.040 Latex allergy status; Z91.018 Allergy to other foods; Z79.899 Other long term (current) drug therapy
CPT/HCPCS: 96361; 96374; 96375; 99283; J1200; J2919; J3490; J7030

== ENCOUNTER 2024-10-09 11:17 | Emergency (ER) | payer MEDICAID ==
[2024-10-09] MEDS ORDERED: Sodium Chloride 0.9% 10 ML Syringe FLUSH PRN (11:48)
[2024-10-09] MEDS: Sodium Chloride 0.9% 1,000 ML IV STA (12:01)
[2024-10-09] MEDS: Ondansetron 4 MG/2 ML SDV IVPUSH ONE (12:02)
[2024-10-09] MEDS: Ketorolac 30 MG/ML SDV IVPUSH ONE (12:02)
[2024-10-09 12:06] LABS: BASOPHILS ABSOLUTE AUTO 0.1 K/mm3 (0.0-0.2); EOSINOPHILS ABSOLUTE AUTO 0.3 K/mm3 (0.0-0.4); EOSINOPHILS PERCENT AUTO 4.3 % (0.0-6.0); HEMATOCRIT 42.3 % (37.0-47.0); IMMATURE GRAN ABSOLUTE AUTO 0.02 K/mm3 (0.00-0.05); IMMATURE GRAN PERCENT AUTO 0.3 % (0.0-0.4); LYMPHOCYTES ABSOLUTE AUTO 1.8 K/mm3 (1.0-4.8); LYMPHOCYTES PERCENT AUTO 29.4 % (24.0-44.0); MEAN CORPUSCULAR HEMOGLOBIN 29.4 pg (28.0-32.0); MEAN CORPUSCULAR HGB CONC 33.1 g/dl (32.0-36.0); MEAN CORPUSCULAR VOLUME 88.9 fl (83.0-99.0); MEAN PLATELET VOLUME 9.4 fl (9.4-12.3); MONOCYTES ABSOLUTE AUTO 0.6 K/mm3 (0.0-0.8); MONOCYTES PERCENT AUTO 10.1 % (0.0-8.0); NEUTROPHILS ABSOLUTE AUTO 3.3 K/mm3 (1.8-7.7); NEUTROPHILS PERCENT AUTO 54.9 % (41.0-71.0); PLATELET COUNT,PLT 261 K/mm3 (150-400); RED BLOOD CELL COUNT 4.76 M/mm3 (4.10-5.30); WHITE BLOOD CELL COUNT,WBC 6.06 K/mm3 (3.9-11.3)
[2024-10-09 12:26] LABS: A/G RATIO 1.4 (1-2); ALBUMIN 4.1 g/dl (3.4-5.0); ANION GAP 13.3 (5-15); BILIRUBIN TOTAL 0.6 mg/dL (0.2-1.0); BUN/CREATININE RATIO 7.5 (14-18); CREATININE 0.8 mg/dL (0.55-1.02); EST CRCL DRUG DOSING (CG) 74.67 mL/min; POTASSIUM,K 3.3 mEq/L (3.5-5.1); PROTEIN TOTAL,TP 7.1 g/dl (6.4-8.2)
[2024-10-09 13:47] LABS: APPEARANCE,URINE TURBID (Clear); BILIRUBIN,URINE NEGATIVE (Negative); COLOR,URINE RED (Yellow); GLUCOSE,URINE NEGATIVE (Negative); KETONES,URINE NEGATIVE (Negative); LEUKOCYTE ESTERASE,URINE NEGATIVE (Negative); NITRITE,URINE NEGATIVE (Negative); OCCULT BLOOD,URINE 3+ (Negative); PROTEIN,URINE 2+ (Negative); UROBILINOGEN,URINE 0.2 (0.2-1.0)
[2024-10-09 13:49] LABS: BACTERIA,URINE MODERATE /hpf (FEW); MUCUS,URINE FEW /hpf (FEW); RBC,URINE >100 /hpf (0-5); SQUAMOUS EPITHELIAL CELLS,UR 0-5 /hpf (0-5); WBC,URINE 0-5 /hpf (0-5)
[2024-10-09 16:27] VITALS: BP 109/66; PULSE 56
== END 2024-10-09 14:20 | disposition home or self-care (01) ==
LOC: JD.ED 11:17
DX: N92.4 Excessive bleeding in the premenopausal period (principal); Z91.018 Allergy to other foods; Z91.048 Other nonmedicinal substance allergy status; Z88.5 Allergy status to narcotic agent; Z91.040 Latex allergy status; Z88.1 Allergy status to other antibiotic agents
CPT/HCPCS: 36415; 76830; 80053; 81001; 84703; 85025; 96361; 96374; 96375; 99284; J1885; J2405; J7030; 99283

== ENCOUNTER 2024-10-22 11:02 | Emergency (ER) | payer MEDICAID ==
[2024-10-22] MEDS: Loratadine 10 MG Tab PO STA (11:44)
[2024-10-22] MEDS: Ondansetron 4 MG Tab.DIS PO ONE (11:44)
[2024-10-22] MEDS: Famotidine 20 MG Tab PO ONE (11:44)
[2024-10-22] MEDS: methylPREDNISolone Sodium Succinate 125 MG/2 ML SDV IM ONE (11:45)
[2024-10-22] MEDS: diphenhydrAMINE 50 MG/ML SDV IM ONE (11:45)
[2024-10-22 12:41] VITALS: BP 134/76; PULSE 65
== END 2024-10-22 12:26 | disposition home or self-care (01) ==
LOC: JD.ED 11:02
DX: T78.1XXA Other adverse food reactions, not elsewhere classified, initial encounter (principal); Z91.040 Latex allergy status; Z88.8 Allergy status to other drugs, medicaments and biological substances; Z88.5 Allergy status to narcotic agent; Z91.018 Allergy to other foods; Z79.899 Other long term (current) drug therapy
CPT/HCPCS: 96372; 99283; A9270; J1200; J2919

== ENCOUNTER 2024-12-13 16:30 | Emergency (ER) | payer MEDICAID ==
[2024-12-13] MEDS: diphenhydrAMINE 50 MG/ML SDV IVPUSH ONE (16:41)
[2024-12-13] MEDS: methylPREDNISolone Sodium Succinate 125 MG/2 ML SDV IVPUSH ONE (16:43)
[2024-12-13] MEDS: methylPREDNISolone Sodium Succinate 125 MG/2 ML SDV ONE (16:45)
[2024-12-13] MEDS: diphenhydrAMINE 50 MG/ML SDV ONE (16:45)
[2024-12-13 18:38] VITALS: BP 120/62; PULSE 62
== END 2024-12-13 18:30 | disposition home or self-care (01) ==
LOC: JD.ED 16:30
DX: T78.40XA Allergy, unspecified, initial encounter (principal); Z91.018 Allergy to other foods; Z91.040 Latex allergy status; Z88.5 Allergy status to narcotic agent; Z88.1 Allergy status to other antibiotic agents; Z79.899 Other long term (current) drug therapy
CPT/HCPCS: 96374; 96375; 99283; A9270; J1200; J1308; J2919

== ENCOUNTER 2024-12-19 13:07 | Emergency (ER) | payer MEDICAID ==
[2024-12-19] MEDS ORDERED: Sodium Chloride 0.9% 10 ML Syringe FLUSH PRN (13:25)
[2024-12-19 13:53] LABS: APPEARANCE,URINE CLEAR (Clear); BASOPHILS ABSOLUTE AUTO 0.1 K/mm3 (0.0-0.2); BASOPHILS PERCENT AUTO 0.7 % (0.0-1.0); EOSINOPHILS ABSOLUTE AUTO 0.2 K/mm3 (0.0-0.4); EOSINOPHILS PERCENT AUTO 2.5 % (0.0-6.0); GLUCOSE,URINE NEGATIVE (Negative); IMMATURE GRAN ABSOLUTE AUTO 0.04 K/mm3 (0.00-0.05); IMMATURE GRAN PERCENT AUTO 0.5 % (0.0-0.4); LYMPHOCYTES ABSOLUTE AUTO 3.0 K/mm3 (1.0-4.8); LYMPHOCYTES PERCENT AUTO 36.2 % (24.0-44.0); MEAN PLATELET VOLUME 9.3 fl (9.4-12.3); MONOCYTES ABSOLUTE AUTO 0.7 K/mm3 (0.0-0.8); MONOCYTES PERCENT AUTO 8.6 % (0.0-8.0); NEUTROPHILS ABSOLUTE AUTO 4.2 K/mm3 (1.8-7.7); NEUTROPHILS PERCENT AUTO 51.5 % (41.0-71.0); NRBC ABSOLUTE 0.00 (0.00-0.02); NRBC PERCENT 0.0 % (0.0-0.2); OCCULT BLOOD,URINE NEGATIVE (Negative); PLATELET COUNT,PLT 259 K/mm3 (150-400); RED BLOOD CELL COUNT 4.54 M/mm3 (4.10-5.30); WHITE BLOOD CELL COUNT,WBC 8.15 K/mm3 (3.9-11.3)
[2024-12-19] MEDS: Lactated Ringers 1,000 ML IV ONE (13:57)
[2024-12-19 14:16] LABS: A/G RATIO 1.3 (1-2); ALANINE AMINOTRANSFERASE,ALT 25 U/L (14-59); ASPARTATE AMNIOTRANSFERASE,AST 17 U/L (15-37); BILIRUBIN TOTAL 0.4 mg/dL (0.2-1.0); BLOOD UREA NITROGEN,BUN 14 mg/dL (7-18); CARBON DIOXIDE,CO2 28 mEq/L (21-32); CHLORIDE,CL 104 mEq/L (98-107); CREATININE 0.7 mg/dL (0.55-1.02); EST CRCL DRUG DOSING (CG) 84.49 mL/min; ESTIMATED GFR 112 mL/min (>60); GLUCOSE RANDOM 86 mg/dL (70-99); POTASSIUM,K 4.1 mEq/L (3.5-5.1); PROTEIN TOTAL,TP 6.6 g/dl (6.4-8.2); SODIUM,NA 137 mEq/L (136-145)
[2024-12-19 14:18] LABS: TROPONIN I HIGH SENSITIVITY < 4 pg/mL (<=51)
[2024-12-19 16:05] VITALS: BP 125/78; PULSE 78
== END 2024-12-19 15:25 | disposition home or self-care (01) ==
LOC: JD.ED 13:07
DX: R42 Dizziness and giddiness (principal); R07.9 Chest pain, unspecified; Z88.1 Allergy status to other antibiotic agents; Z88.5 Allergy status to narcotic agent; Z91.018 Allergy to other foods; Z91.040 Latex allergy status; Z79.899 Other long term (current) drug therapy
CPT/HCPCS: 36415; 71045; 80053; 81003; 83735; 84484; 85025; 93005; 96360; 99285; J7120

== ENCOUNTER 2024-12-31 19:24 | Emergency (ER) | payer MEDICAID ==
[2024-12-31] MEDS: diphenhydrAMINE 50 MG/ML SDV IVPUSH ONE (19:39)
[2024-12-31] MEDS: methylPREDNISolone Sodium Succinate 125 MG/2 ML SDV IVPUSH ONE (19:40)
[2024-12-31] MEDS: EPINEPHrine 1 MG/ML SDV ONE (19:43)
[2024-12-31 20:09] LABS: BASOPHILS ABSOLUTE AUTO 0.1 K/mm3 (0.0-0.2); BASOPHILS PERCENT AUTO 0.9 % (0.0-1.0); EOSINOPHILS ABSOLUTE AUTO 0.1 K/mm3 (0.0-0.4); EOSINOPHILS PERCENT AUTO 2.1 % (0.0-6.0); IMMATURE GRAN ABSOLUTE AUTO 0.01 K/mm3 (0.00-0.05); IMMATURE GRAN PERCENT AUTO 0.2 % (0.0-0.4); LYMPHOCYTES ABSOLUTE AUTO 2.0 K/mm3 (1.0-4.8); LYMPHOCYTES PERCENT AUTO 29.9 % (24.0-44.0); MEAN PLATELET VOLUME 10.0 fl (9.4-12.3); MONOCYTES ABSOLUTE AUTO 0.6 K/mm3 (0.0-0.8); MONOCYTES PERCENT AUTO 8.4 % (0.0-8.0); NEUTROPHILS ABSOLUTE AUTO 3.8 K/mm3 (1.8-7.7); NEUTROPHILS PERCENT AUTO 58.5 % (41.0-71.0); NRBC ABSOLUTE 0.00 (0.00-0.02); NRBC PERCENT 0.0 % (0.0-0.2); PLATELET COUNT,PLT 233 K/mm3 (150-400); RED BLOOD CELL COUNT 4.22 M/mm3 (4.10-5.30); WHITE BLOOD CELL COUNT,WBC 6.56 K/mm3 (3.9-11.3)
[2024-12-31 20:52] LABS: LACTIC ACID 0.6 mmol/L (0.4-2.0)
[2024-12-31 20:58] LABS: A/G RATIO 1.3 (1-2); ALANINE AMINOTRANSFERASE,ALT 26.0 U/L (14-59); ASPARTATE AMNIOTRANSFERASE,AST 18.0 U/L (15-37); BILIRUBIN TOTAL 0.3 mg/dL (0.2-1.0); BLOOD UREA NITROGEN,BUN 11.0 mg/dL (7-18); CARBON DIOXIDE,CO2 24.0 mEq/L (21-32); CHLORIDE,CL 106.0 mEq/L (98-107); CREATININE 0.7 mg/dL (0.55-1.02); EST CRCL DRUG DOSING (CG) 84.49 mL/min; ESTIMATED GFR 112.0 mL/min (>60); GLUCOSE RANDOM 99.0 mg/dL (70-99); POTASSIUM,K 3.5 mEq/L (3.5-5.1); PROTEIN TOTAL,TP 6.1 g/dl (6.4-8.2); SODIUM,NA 138.0 mEq/L (136-145); TSH 1.36 uIU/mL (0.358-3.74)
[2024-12-31] MEDS: EPINEPHrine 1 MG/ML SDV IM ONE (22:28)
[2024-12-31 22:37] VITALS: BP 119/72; PULSE 67
== END 2024-12-31 22:30 | disposition home or self-care (01) ==
LOC: JD.ED 19:24
DX: T78.40XA Allergy, unspecified, initial encounter (principal); Z91.040 Latex allergy status; Z91.018 Allergy to other foods; Z88.8 Allergy status to other drugs, medicaments and biological substances; Z79.899 Other long term (current) drug therapy
CPT/HCPCS: 36415; 71045; 80053; 83605; 83735; 84443; 84703; 85025; 93005; 96374; 96375; 99285; J1200; J1308; J2919; J7030; 93010; 99284

== ENCOUNTER 2025-03-26 13:52 | Emergency (ER) | payer MEDICAID ==
[2025-03-26] MEDS ORDERED: Sodium Chloride 0.9% 10 ML Syringe FLUSH PRN (14:27)
[2025-03-26 14:48] LABS: BASOPHILS ABSOLUTE AUTO 0.1 K/mm3 (0.0-0.2); BASOPHILS PERCENT AUTO 1.0 % (0.0-1.0); EOSINOPHILS ABSOLUTE AUTO 0.3 K/mm3 (0.0-0.4); EOSINOPHILS PERCENT AUTO 3.4 % (0.0-6.0); IMMATURE GRAN ABSOLUTE AUTO 0.03 K/mm3 (0.00-0.05); IMMATURE GRAN PERCENT AUTO 0.4 % (0.0-0.4); LYMPHOCYTES ABSOLUTE AUTO 2.1 K/mm3 (1.0-4.8); LYMPHOCYTES PERCENT AUTO 25.6 % (24.0-44.0); MEAN PLATELET VOLUME 9.8 fl (9.4-12.3); MONOCYTES ABSOLUTE AUTO 0.6 K/mm3 (0.0-0.8); MONOCYTES PERCENT AUTO 6.8 % (0.0-8.0); NEUTROPHILS ABSOLUTE AUTO 5.1 K/mm3 (1.8-7.7); NEUTROPHILS PERCENT AUTO 62.8 % (41.0-71.0); NRBC ABSOLUTE 0.00 (0.00-0.02); NRBC PERCENT 0.0 % (0.0-0.2); PLATELET COUNT,PLT 256 K/mm3 (150-400); RED BLOOD CELL COUNT 4.38 M/mm3 (4.10-5.30); WHITE BLOOD CELL COUNT,WBC 8.19 K/mm3 (3.9-11.3)
[2025-03-26 14:53] LABS: APPEARANCE,URINE CLEAR (Clear); GLUCOSE,URINE NEGATIVE (Negative); OCCULT BLOOD,URINE TRACE-INTACT (Negative)
[2025-03-26 15:08] LABS: EPITHELIAL CELLS,URINE 0-5 /hpf (0-5)
[2025-03-26] MEDS ORDERED: Naloxone 0.4 MG/ML SDV IVPUSH PRN (15:11)
[2025-03-26 15:19] LABS: A/G RATIO 1.2 (1-2); ALANINE AMINOTRANSFERASE,ALT 23 U/L (14-59); ASPARTATE AMNIOTRANSFERASE,AST 16 U/L (15-37); BILIRUBIN TOTAL 0.4 mg/dL (0.2-1.0); BLOOD UREA NITROGEN,BUN 14 mg/dL (7-18); CARBON DIOXIDE,CO2 25 mEq/L (21-32); CHLORIDE,CL 105 mEq/L (98-107); CREATININE 0.7 mg/dL (0.55-1.02); EST CRCL DRUG DOSING (CG) 84.49 mL/min; ESTIMATED GFR 112 mL/min (>60); GLUCOSE RANDOM 99 mg/dL (70-99); POTASSIUM,K 3.6 mEq/L (3.5-5.1); PROTEIN TOTAL,TP 6.9 g/dl (6.4-8.2); SODIUM,NA 138 mEq/L (136-145)
[2025-03-26 15:20] LABS: HCG QUANTITATIVE < 1.0 mIU/mL
[2025-03-26 17:12] VITALS: BP 111/74; PULSE 88
== END 2025-03-26 17:05 | disposition home or self-care (01) ==
LOC: JD.ED 13:52
DX: N93.9 Abnormal uterine and vaginal bleeding, unspecified (principal); Z88.1 Allergy status to other antibiotic agents; Z88.8 Allergy status to other drugs, medicaments and biological substances; Z91.040 Latex allergy status; Z91.018 Allergy to other foods; Z79.899 Other long term (current) drug therapy
CPT/HCPCS: 36415; 76830; 76830-26; 80053; 81001; 81025; 83735; 84702; 85025; 96374; 99284-25; J1171